=== PATIENT | female | born 1935 | race Caucasian/White ===

== ENCOUNTER 2024-09-29 09:20 | Inpatient (IN) | payer OTHER, SELFPAY ==
[2024-09-28] VITALS (13 sets, daily range): BP systolic 120–153; BP diastolic 51–85; BMI 28.6; BMI 28.5
--- NOTE | 2024-09-28 10:42 | ED.GENMED ---
History of Present Illness
General
Chief Complaint: Breathing Problem
Source: patient and ambulance crew
Exam Limitations: none
Time Seen by Provider: 09/28/24 10:29
Nursing documentation reviewed up to this point in time: agreed with
History of Present Illness
History of Present Illness:
89-year-old female presents Emergency Department complaining of dizziness. EMS noted she was short of breath. They gave her a DuoNeb en route.
Past History
Past History
ED Past Medical History: Arrthythmia (A. fib), COPD, HTN and Hypercholesterolemia
ED Past Surgical History: Appendectomy
Social History
Tobacco: Former smoker
Alcohol: Former
Drug: None
Personal:
Living: alone
Review of Systems
Review of Systems
Allergies reviewed?: Yes
All Other Systems: Not applicable
Constitutional: Reports no symptoms
EENT: Reports no symptoms
Respiratory: Reports cough and trouble breathing
Cardiac: Reports no symptoms
ABD/GI: Reports no symptoms
: Reports no symptoms
Musculoskeletal: Reports no symptoms
Skin: Reports no symptoms
Neurological: Reports dizzy
Endocrine: Reports no symptoms
Hematologic/Lymphatic: Reports no symptoms
Psychiatric: Reports no symptoms
Phy Exam
Physical Exam
Physical Exam:
Physical Exam
General: Moderate respiratory distress
Neck: supple. no meningeal signs. normal posterior pharynx
Heart: s1/s2 regular rate and rhythm, no murmur. equal radial
pulses.
HEENT: Pupils equal round reactive to light, EOMI
Lungs: Moderate respiratory distress. Wheezing bilaterally
Abdomen: normal bowel sounds. not tender. no CVAT
Neuro: alert and oriented. no focal neurological deficits cranial nerves II through XII intact
Skin: no rash
Psychiatric: well kept. interactive and cooperative
Extremities: no edema. no calf tenderness. negative homans. good distal pulses
Scores
Heart Failure Risk
Heart Failure Risk Score: Not Applicable
Course
Orders/Labs/Results
Orders:
Orders
09/28/24 10:39
CT Head W/o Iv Contrast Urgent
Comment:
Reason For Exam: dizziness
Cardiac Monitoring- Treatment ONCE
IV Insert/Care/Rem.- Treatment PRN
O2 Therapy [RESP] Stat
Titrate/Wean O2 to maintain O2 sat greater than (%): 2
Pulse Ox/cont/shift [RESP] Stat
Quantity: 1
09/28/24 10:40
Electrocardiogram (*1) Stat
Reason for Study: Other
Other Reason for Exam: pneumonia
EKG- Treatment ONCE
09/28/24 10:44
Complete Blood Count/With Diff Urgent
Comprehensive Metabolic Panel Urgent
Lactic Acid Q4H
Comment: CANCEL 2nd LACTIC ACID IF 1st LACTIC ACID IS LESS THAN 2
NT-proBNP Urgent
Troponin I Urgent
09/28/24 10:49
Ipratropium/Albuterol Sulfate [Duoneb] 3 ml INH R NOW STA
09/28/24 11:08
CR Chest Portable - 1 View Urgent
Reason For Exam: SOB
09/28/24 13:02
Azithromycin 500 mg/250 ml [Zithromax Infusion] 500 mg in 250 ml IV NOW
CefTRIAXone [Rocephin] 1,000 mg IV NOW STA
Dexamethasone Sod Phosphate [Decadron] 10 mg IV NOW STA
09/28/24 13:15
Blood Culture Q30M
CARROLL Source: Blood/Venous
Specimen Description:
09/28/24 13:21
Admit/Transfer Patient As Directed
Co-Sign Provider:
Level of Care: Observation services
Assign to:: Telemetry
Physician / Group: dewin
Diagnosis: pneumonia, copd exacerbation
Reason for Telemetry: Arrhythmia
Date to Stop Telemetry: 10/01/24
Time to Stop Telemetry: 11:00
09/28/24 13:22
Code Status As Directed
Resuscitation Status: Full Code
PRN Pain Medication Management As Directed
May give lesser potent ordered pain med per pt: Yes
preference::
Protocol:: Medication orders for pain may be administered in a
manner that supports deferring to patient preference
when the pt is:
- Requesting an ordered lesser potent pain medication.
Least to most potent pain medications are defined
as: acetaminophen < NSAID < tramadol < opioids
(morphine, oxycodone, hydromorphone).
- Requesting a lesser dose of the same medication IF
ORDERED.
- Requesting a less intrusive route of administration
if both routes are prescribed by the provider (PO <
IV).
09/28/24 13:45
Blood Culture Q30M
C[facility] Source: Blood/Venous
Specimen Description:
09/28/24 14:45
Lactic Acid Q4H
Comment: CANCEL 2nd LACTIC ACID IF 1st LACTIC ACID IS LESS THAN 2
10/01/24 11:00
DC Protocol for Telemetry ONCE
Abnormal Lab Results
09/28/24
10:44
MCHC 31.7 L g/dL
(33.0-37.0)
Lymphocytes % 18.5 L %
(20.5-51.1)
Potassium 3.0 L mmol/L
(3.5-5.1)
Carbon Dioxide 32 H mmol/L
(22-30)
Creatinine 0.5 L mg/dL
(0.6-1.0)
Glucose 163 H mg/dl
(70-99)
AST 39 H U/L
(14-36)
09/28/24 10:44
09/28/24 10:44
Vital Signs
Initial and Last Documented VS:
Initial Vital Signs
Pulse Ox
86
09/28/24 10:27
Last Documented Vital Signs
Temp Pulse Resp BP Pulse Ox
98.2 F 77 18 135/61 93
09/28/24 12:00 09/28/24 13:30 09/28/24 13:30 09/28/24 13:30 09/28/24 13:30
MDM/Problems Addressed
Differential Diagnosis Includes:
Pneumonia, COPD, hypokalemia
MDM/Problems Addressed:
89-year-old female with hypokalemia, pneumonia, COPD exacerbation, dizziness
Chronic conditions affecting care: COPD
Acute Exacerbation and/or Progression of Chronic Illness: COPD
*Radiology
Radiology exam reviewed: radiology read reviewed (Chest x-ray shows right upper lobe pneumonia, CT head no acute findings)
*Pulse Oximetry
Patient hypoxic: yes
*EKG
Interpreted by ED Provider?: Yes
EKG Intrepretation Date: 09/28/24
EKG Intrepretation Time: 11:23
Interpretation: normal
Comparison EKG: no changes
Heart Rate: 75
Rate: normal
Rhythm: sinus
[place]: normal axis
Interval: normal interval
QRS Pattern: normal QRS
Ischemia: no ischemia
*Employee Communications Specialist Interpretation
Rate: normal
Interpretation: normal
Heart Rate: 77
Rhythm: sinus
*Critical Care Note
Total Time (30-74mins, 75-104mins- exclusive of procedures): Not Applicable
Data Reviewed
Review of Other/Old Records Reveals: Labs (Prior potassium 4.0 March 07, 2022)
Source: records
Patient Management
Social determinants of health affecting care: Living situation and Strong social support
Discussion with other providers: Hospitalist
Escalation/DeEscalation of care consider admission/obs:
Admission indicated
ED Attending Note
-
Portions of this chart may have been created with voice recognition software.� Occasional wrong word or��sound alike� substitutions may have occurred due to the inherent limitations of voice recognition software.
Discharge Plan
Departure
Patient Disposition: Admit
Date of Disposition: 09/28/24
Time of Disposition: 13:05
Admit to: Telemetry
Presentation/result/management discussed w/ accepting MD/DO: Hospitalist
Patient with high blood pressure during this ER visit?: Yes
Condition: Fair
Discharge Problem:
Pneumonia, COPD with exacerbation, Dizziness
Prescriptions:
No Action
rosuvastatin 5 MG tablet
5 mg PO QPM
montelukast 10 MG tablet
10 mg PO QPMPRN PRN (Reason: ALLERGIES)
azelastine 1 SPRAY aerosol,spray
1 spray intranasal BIDPRN PRN (Reason: ALLERGIES)
PreserVision AREDS 1 CAP capsule
1 cap PO BID
lisinopril 5 MG tablet
5 mg PO DAILY
diltiazem HCl 180 MG capsule,extended release 24hr
180 mg PO QPM
Eliquis 5 MG tablet
5 mg PO BID
mirtazapine 15 mg Tablet
15 mg PO HS Qty: 0
acetaminophen [Tylenol] 325 mg Tablet
650 mg PO DAILYPRN PRN (Reason: mild pain)
Trelegy Ellipta 100-62.5-25 mcg Blister With Device
1 inh INHALATION R DAILY
Referrals:
UNKNOWN - PT DOES,NOT KNOW [Family Provider] -
Interventions
Interventions:
*Risk Screen - Suicide Last Done: 09/28/24 10:29
*General Assessment Last Done: 09/28/24 10:29
*Neglect/Abuse Screening Last Done: 09/28/24 10:29
ED- Fall Risk Assessment Last Done: 09/28/24 10:29
ED- Cardiac Assessment Last Done: 09/28/24 10:38
ED- Pulmonary Assessment Last Done: 09/28/24 10:38
Discharge Date and Time
Print Language: DJIBOUTIAN
[2024-09-28 10:57] LABS: % Basophils 0.7 % (0-2); % Eosinophils 3.4 % (0-6); % Immature Granulocytes 0.3 % (0-0.5); % Lymphocytes 18.5 % (20.5-51.1); % Monocytes 4.8 % (1.7-9.3); % Neutrophils 72.3 % (42.2-75.2); Absolute Basophils 0.1 10^3/uL (0-0.2); Absolute Eosinophils 0.2 10^3/uL (0-0.7); Absolute Lymphocytes 1.3 10^3/uL (1.2-3.4); Absolute Monocytes 0.3 10^3/uL (0.1-0.6); Hematocrit 38.8 % (37.0-47.0); Hemoglobin 12.3 g/dL (12.0-16.0); Mean Corp Hgb Conc. 31.7 g/dL (33.0-37.0); Mean Corpuscular Hgb 28.4 pg (27.0-31.0); Mean Corpuscular Volume 89.6 fL (81.0-99.0); Mean Platelet Volume 8.4 fL (7.4-10.4); Nucleated Red Blood Cells % 0 %; Platelet Count 318 10^3/uL (130-400); Red Blood Cell Count 4.33 10^6/uL (4.20-5.40); Red Cell Dist. Width 14.4 % (11.5-14.5); White Blood Cell Count 6.9 10^3/uL (4.8-10.8)
[2024-09-28 11:04] LABS: Lactic Acid 1.2 mmol/L (0.7-2.0)
[2024-09-28] MEDS: DUONEB 3 ML INH ×2 (11:06→15:20)
[2024-09-28 11:10] LABS: ALT (SGPT) 26 U/L (0-35); AST (SGOT) 39 U/L (14-36); Albumin 3.8 g/dl (3.5-5.0); Alkaline Phosphatase 118 U/L (38-126); Blood Urea Nitrogen 13 mg/dl (7-17); Calcium 8.9 mg/dl (8.4-10.2); Carbon Dioxide 32 mmol/L (22-30); Chloride 104 mmol/L (98-107); Estimated Creatinine Clearance 62 ml/min; Glucose 163 mg/dl (70-99); Sodium 142 mmol/L (135-145); Total Bilirubin 0.5 mg/dl (0.2-1.3); Total Protein 6.7 g/dl (6.3-8.2); eGFR > 60.00
--- NOTE | 2024-09-28 12:17 | EDRN ---
Pt ambulated with walker to restroom, became SOB and returned to stretcher. Pulse ox 92% on 2L NC O2. Pt unable to get specimen as toilet tissue was placed in hat.
[2024-09-28 12:27] LABS: NT-proBNP 688 pg/ml; Troponin I < 0.012 ng/ml
[2024-09-28] MEDS: ZITHROMAX INFUSION 250 IV (13:05)
[2024-09-28] MEDS: ROCEPHIN 1000 MG IV (13:05)
[2024-09-28] MEDS: DECADRON 10 MG IV (13:15)
--- NOTE | 2024-09-28 13:26 | HPS.HSE ---
Family Physician
-
Family Physician: NOT KNOW UNKNOWN - PT DOES
Chief Complaint
-
dizziness
History of Present Illness
89-year-old female past medical history of COPD, atrial fibrillation, hypertension, hypercholesteremia presenting with dizziness. Patient felt dizzy last night and was having chills. This morning she woke up was having difficulty walking to the
car. She was having a little difficulty speaking and also had chills and what seemed like a panic attack as per daughter. She was noted to be short of breath a little bit last week as well as yesterday and today. No significant cough. No sore
throat or fevers or chills. No vomiting or diarrhea. She did have palpitations but no chest pain.
She is a former smoker. She rarely drinks alcohol.
Medical History
Past Medical History
Past Medical History: Reports Other (COPD, atrial fibrillation, hypertension, hypercholesteremia)
Past Surgical History: Reports None
Social History
Tobacco: Former Smoker
Alcohol: Occasional
Drug: None
Family History
Family History: Not pertinent
Allergies / Home Medications
Allergies reflects when Allergies were last updated in [employer].
Home Medications with original date entered in [employer]
Allergy/Medication List:
Allergies
Allergy/AdvReac Type Severity Reaction Status Date / Time
animal dander Allergy Unknown Verified 09/28/24 10:28
morphine Allergy nausea and Verified 09/28/24 10:28
vomiting
peanut Allergy Unknown Verified 09/28/24 10:28
Home Medications
azelastine 137 mcg (0.1 %) nasal spray 1 spray intranasal BIDPRN PRN ALLERGIES 02/02/22
fluticasone furoate 100 mcg-vilanterol 25 mcg/dose inhalation powder (Breo Ellipta) 1 puff IH R DAILY Lung/breathing issues 02/02/22
fluticasone propionate 50 mcg/actuation nasal spray,suspension 2 spray intranasal DAILY Allergies 02/02/22
montelukast 10 mg tablet 10 mg PO QPMPRN PRN ALLERGIES 02/02/22
rosuvastatin 5 mg tablet 5 mg PO QPM High cholesterol 02/02/22
tiotropium bromide 18 mcg capsule with inhalation device (Spiriva with HandiHaler) 1 puff IH R DAILY Lung/breathing issues 02/02/22
vitamins A,C,F-sfoe-jokpap 4,296 mcg-226 mg-90 mg capsule (PreserVision AREDS) 1 cap PO BID Supplement 02/02/22
apixaban 5 mg tablet (Eliquis) 5 mg PO BID Blood clot prevention/tx 02/27/22
diltiazem HCl 180 mg capsule,extended release 24 hr 180 mg PO DAILY Blood pressure 02/27/22
guaifenesin 600 mg tablet, extended release 12 hr (Mucus Relief ER) 600 mg PO Q12 Congestion 02/27/22
lisinopril 5 mg tablet 5 mg PO DAILY Blood pressure 02/27/22
Remeron mg PO HS 03/04/22
benzonatate 100 mg capsule 200 mg (2 x 100 mg) PO TID #20 caps 03/07/22
prednisone 10 mg tablet 10 mg PO .TAPER #30 tabs 03/07/22
cephalexin 500 mg capsule 500 mg PO Q6H 7 days #28 caps 01/26/23
Review of Systems
-
History Source: Patient
A 12 point ROS was completed and negative except as noted: Yes
Constitutional: Reports No Symptoms
EENT: Reports No Symptoms
Respiratory: Reports See HPI
Cardiac: Reports No Symptoms
Abdomen/GI: Reports No Symptoms
: Reports No Symptoms
Musculoskeletal: Reports No Symptoms
Skin: Reports No Symptoms
Neurological: Reports No Symptoms
Endocrine: Reports No Symptoms
Hematologic/Lymphatic: Reports No Symptoms
Psych: Reports No Symptoms
Physical Exam
Vital Signs
Vital Signs
Temp Pulse Resp BP Pulse Ox
98.2 F 76 16 133/53 96
09/28/24 12:00 09/28/24 13:00 09/28/24 13:00 09/28/24 13:00 09/28/24 13:00
Physical Exam
General: Well Developed, Well Nourished and No Apparent Distress
HEENT: NormoCephalic, Moist mucous membranes and Atraumatic
Respiratory: Clear
Cardiac: S1/S2 and Regular Rhythm; No Murmur or Rub
GI: Soft, Non Tender, Non Distended and Normal Bowel Sounds; No Organomegaly
Rectal: Deferred by Provider
Musculoskeletal: No Clubbing, No Cyanosis and No Edema
Skin: No Rash
Neuro: Nonfocal/grossly intact
Laboratory Results
-
09/28/24 10:44
09/28/24 10:44
Laboratory Results
Lactic Acid 1.2 mmol/L (0.7-2.0) 09/28/24 10:44
Total Bilirubin 0.5 mg/dl (0.2-1.3) 09/28/24 10:44
AST 39 U/L (14-36) H 09/28/24 10:44
ALT 26 U/L (0-35) 09/28/24 10:44
Alkaline Phosphatase 118 U/L (38-126) 09/28/24 10:44
Troponin I < 0.012 ng/ml 09/28/24 10:44
Data Reviewed
-
Lab Data: Labs Reviewed by me
Old Records: Reviewed
Impression/Plan
-
IMPRESSION:
PLAN:
# Hypoxemic respiratory insufficiency secondary to right upper lobe pneumonia/COPD exacerbation
-Dizziness/chills likely due to pneumonia
-Patient on 2 L oxygen right now
-Lungs sound clear at this time, doubt she will need a long course of steroids
-Ceftriaxone/doxycycline
-DuoNebs every 6 hours
-Dexamethasone 4 mg every 12
# Hypokalemia
-Replete potassium
Paroxysmal atrial fibrillation
-Continue Eliquis
-Continue diltiazem
Essential hypertension
Hypercholesterolemia
-Continue statin
Full code
DVT prophylaxis�Eliquis
Regular diet
[2024-09-28] MEDS: VIBRAMYCIN 260 MG IV (16:20)
[2024-09-28 16:49] LABS: COVID-19 Antigen Negative (Negative)
[2024-09-28] MEDS: CRESTOR 5 MG PO (17:43)
[2024-09-28] MEDS: CARDIZEM CD 180 MG PO (17:43)
[2024-09-28] MEDS: SYMBICORT 80/4.5 MCG INHALER 2 PUFF INH (19:07)
[2024-09-28] MEDS: VENTOLIN NEBULES 2.5 MG INH (19:07)
[2024-09-28] MEDS: OCUVITE SOFTGEL 1 CAP PO (19:33)
[2024-09-28] MEDS: ELIQUIS 5 MG PO (19:34)
[2024-09-28] MEDS: REMERON 15 MG PO (21:17)
[2024-09-29] VITALS (7 sets, daily range): BP systolic 149–170; BP diastolic 59–107
[2024-09-29 02:06] LABS: Glucose - Point of Care 209 mg/dl (70-99)
[2024-09-29] MEDS: DECADRON 4 MG IV ×2 (02:14→14:02)
[2024-09-29] MEDS: VIBRAMYCIN 260 MG IV (02:15)
--- NOTE | 2024-09-29 05:24 | PTCARENOTE ---
Pt requested to go to bathroom to urinate at approximately 0200. Pt stood up at side of the bed and began having jerky movements and c/o dizziness. VS BP 169/81, HR 90, 96% 2LO2 (O2 is new for her), RR 20, T 97.4. Pt blood sugar result of 209. Pt on
tele showing NSR. Pt does have baseline hand tremors and earlier in the shift she was able to walk to and from the bathroom using her walker with no difficulty. DIE CUTTER APPRENTICE notified, new orders placed for VBG to be drawn in AM d/t hx of YUSRA and possible
being hypercarbic. Pt continues to have jerky movements when getting OOB and refused bed motta.
[2024-09-29 07:04] LABS: Venous Blood Gas B.E. 3.1 mmol/L (-4 to +4); Venous Blood Gas HCO3 28.5 mmol/L (22-27); Venous Blood Gas O2 Sat % 98.7 %; Venous Blood Gas pCO2 46 mmHg (35-48); Venous Blood Gas pO2 99 mmHg (30-50)
[2024-09-29] MEDS: SPIRIVA RESPIMAT 2.5 MCG 2 PUFF INH (07:11)
[2024-09-29] MEDS: SYMBICORT 80/4.5 MCG INHALER 2 PUFF INH ×2 (07:11→19:13)
[2024-09-29] MEDS: VENTOLIN NEBULES 2.5 MG INH ×4 (07:12→19:13)
[2024-09-29] MEDS: OCUVITE SOFTGEL 1 CAP PO ×2 (08:26→19:30)
[2024-09-29] MEDS: ELIQUIS 5 MG PO ×2 (08:26→19:30)
[2024-09-29] MEDS: ZESTRIL 5 MG PO (08:26)
[2024-09-29 09:28] LABS: Blood Urea Nitrogen 13 mg/dl (7-17); Calcium 8.7 mg/dl (8.4-10.2); Carbon Dioxide 27 mmol/L (22-30); Chloride 104 mmol/L (98-107); Estimated Creatinine Clearance 62 ml/min; Glucose 158 mg/dl (70-99); Potassium 3.6 mmol/L (3.5-5.1); Sodium 142 mmol/L (135-145); eGFR > 60.00
[2024-09-29 09:40] LABS: % Immature Granulocytes 0.8 % (0-0.5); % Lymphocytes 9.3 % (20.5-51.1); % Monocytes 0.7 % (1.7-9.3); % Neutrophils 89.2 % (42.2-75.2); Absolute Immature Granulocytes 0.1 10^3/uL (0-0.05); Absolute Lymphocytes 0.6 10^3/uL (1.2-3.4); Absolute Neutrophils 5.5 10^3/uL (1.4-6.5); Hematocrit 37.1 % (37.0-47.0); Mean Corp Hgb Conc. 32.3 g/dL (33.0-37.0); Mean Corpuscular Hgb 28.4 pg (27.0-31.0); Mean Corpuscular Volume 87.7 fL (81.0-99.0); Mean Platelet Volume 8.8 fL (7.4-10.4); Nucleated Red Blood Cells % 0 %; Platelet Count 327 10^3/uL (130-400); Red Blood Cell Count 4.23 10^6/uL (4.20-5.40); Red Cell Dist. Width 14.3 % (11.5-14.5); White Blood Cell Count 6.1 10^3/uL (4.8-10.8)
--- NOTE | 2024-09-29 11:24 | CM ---
Pt seen bedside. Initial assessment completed.
Pt reports that she lives alone at [facility]
Pt states she uses walker primarily to ambulate but will also use WC when needed. Pt does not use home O2, is currently on 2L O2 in hospital.
Pt does not recall if she's ever had skilled rehab before but did report she engaged in OP therapy at around the time of the COVID pandemic.
Pt denies VN/PT hx
Address, point of contact and insurance verified
PCP: Pt does not recall name but confirmed PCP is at [facility]
Pharmacy: [facility]
Plan: Return to [facility]
CM will cont to follow for d/c planning
[2024-09-29] MEDS: STERILE WATER FOR INJECTION 10 ML IV (14:03)
[2024-09-29] MEDS: ROCEPHIN 1000 MG IV (14:03)
--- NOTE | 2024-09-29 14:50 | W.PN.HOSP.TC ---
Today's Communication/Plan
-
change all meds to oral
Assessment / Plan
Assessment / Plan
pt is an 89 year old female
Acute Hypoxemic respiratory insufficiency secondary to right upper lobe pneumonia/COPD exacerbation--94-95% on room air--no wheezing--change to oral doxy/keflex--oral prednisone
Hypokalemia--Replete potassium
Paroxysmal atrial fibrillation-Continue Eliquis-Continue diltiazem
Essential hypertension--cont diltiazem, lisinopril
Hypercholesterolemia--Continue statin
code status --Full code
DVT prophylaxis�Eliquis
Anticipated Discharge: Within 24 hours
Subjective/Interval History
-
Date of Service: September 29, 2024
pt doing OK
Objective Data
-
Labs:
Laboratory Results
09/29/24
06:44
WBC 6.1
Hgb 12.0
Hct 37.1
Plt Count 327
Sodium 142
Potassium 3.6
Chloride 104
Carbon Dioxide 27
BUN 13
Creatinine 0.5 L
Glucose 158 H
Calcium 8.7
Vital Signs:
max temp for 24 hours
09/29/24
11:30
Temp 98.5 F
Vital Signs
Temp Pulse Resp BP Pulse Ox
98.5 F 93 20 166/94 95
09/29/24 11:30 09/29/24 11:30 09/29/24 11:30 09/29/24 11:30 09/29/24 14:45
I&O
09/28/24 09/29/24 09/30/24
06:59 06:59 06:59
Intake Total 720 / 720
Balance 720 / 720
Review of Systems
-
All other systems: Reviewed and negative
Physical Exam
-
General: Well Developed, Well Nourished and No Apparent Distress
HEENT: Normocephalic and Atraumatic; Negative Oxygen
Respiratory: Clear to Auscultation and Decreased Breath Sounds; Negative Wheezes or Rhonchi
Cardiac: Regular Rhythm, S1/S2 and Murmur
GI: Soft, Nontender, Nondistended and Normal Bowel Sounds
Musculoskeletal: No Clubbing, No Cyanosis and No Edema
Neuro: Awake and Alert
Psych: Calm
[2024-09-29] MEDS: KEFLEX 500 MG PO ×2 (17:04→21:07)
[2024-09-29] MEDS: CRESTOR 5 MG PO (17:52)
[2024-09-29] MEDS: CARDIZEM CD 180 MG PO (17:52)
[2024-09-29] MEDS: VIBRAMYCIN 100 MG PO (19:29)
[2024-09-29] MEDS: REMERON 15 MG PO (21:07)
[2024-09-30] VITALS (8 sets, daily range): BP systolic 116–180; BP diastolic 57–98; PULSE 96–103; O2SAT 96
[2024-09-30] MEDS: SPIRIVA RESPIMAT 2.5 MCG 2 PUFF INH (07:29)
[2024-09-30] MEDS: SYMBICORT 80/4.5 MCG INHALER 2 PUFF INH ×2 (07:29→19:59)
[2024-09-30] MEDS: VENTOLIN NEBULES 2.5 MG INH ×4 (07:29→20:00)
[2024-09-30 08:16] LABS: Hematocrit 36.9 % (37.0-47.0); Hemoglobin 12.3 g/dL (12.0-16.0); Mean Corp Hgb Conc. 33.3 g/dL (33.0-37.0); Mean Platelet Volume 8.7 fL (7.4-10.4); Platelet Count 359 10^3/uL (130-400); Red Blood Cell Count 4.24 10^6/uL (4.20-5.40); Red Cell Dist. Width 14.8 % (11.5-14.5); White Blood Cell Count 16.1 10^3/uL (4.8-10.8)
[2024-09-30 08:26] LABS: Blood Urea Nitrogen 24 mg/dl (7-17); Calcium 9.4 mg/dl (8.4-10.2); Carbon Dioxide 28 mmol/L (22-30); Chloride 103 mmol/L (98-107); Estimated Creatinine Clearance 53 ml/min; Glucose 160 mg/dl (70-99); Magnesium 1.9 mg/dl (1.6-2.3); Potassium 4.1 mmol/L (3.5-5.1); Sodium 140 mmol/L (135-145); eGFR > 60.00
[2024-09-30] MEDS: VIBRAMYCIN 100 MG PO ×2 (08:49→19:30)
[2024-09-30] MEDS: ELIQUIS 5 MG PO ×2 (08:50→19:31)
[2024-09-30] MEDS: DELTASONE 40 MG PO (08:50)
[2024-09-30] MEDS: ZESTRIL 5 MG PO (08:50)
[2024-09-30] MEDS: KEFLEX 500 MG PO ×3 (08:51→21:38)
[2024-09-30] MEDS: OCUVITE SOFTGEL 1 CAP PO ×2 (08:51→19:31)
[2024-09-30] MEDS: STERILE WATER FOR INJECTION IV (12:03)
--- NOTE | 2024-09-30 14:03 | W.PN.HOSP.TC ---
Today's Communication/Plan
-
stop prednisone
cont keflex/doxy
anticipate d/c tomorrow
Assessment / Plan
Assessment / Plan
pt is an 89 year old female
Acute Hypoxemic respiratory insufficiency secondary to right upper lobe pneumonia/COPD exacerbation--94-95% on room air--no wheezing, stopped prednisone--change to oral doxy/keflex--anticipate d/c tomorrow
confusion/TME--likely from steroids--will stop and re-eval
Hypokalemia--Replete potassium
Paroxysmal atrial fibrillation-Continue Eliquis-Continue diltiazem
Essential hypertension--cont diltiazem, lisinopril
Hypercholesterolemia--Continue statin
code status --Full code
DVT prophylaxis�Eliquis
Anticipated Discharge: Within 24 hours
Subjective/Interval History
-
Date of Service: September 30, 2024
pt eels good but with labile mood--sobbing--said her daughter told her she was nasty to people
Objective Data
-
Labs:
Laboratory Results
09/30/24
07:11
WBC 16.1 H
Hgb 12.3
Hct 36.9 L
Plt Count 359
Sodium 140
Potassium 4.1
Chloride 103
Carbon Dioxide 28
BUN 24 H
Creatinine 0.7
Glucose 160 H
Calcium 9.4
Vital Signs:
max temp for 24 hours
09/30/24
03:00
Temp 97.9 F
Vital Signs
Temp Pulse Resp BP Pulse Ox
97.3 F 80 16 124/57 95
09/30/24 11:40 09/30/24 11:43 09/30/24 11:43 09/30/24 11:40 09/30/24 11:43
I&O
09/29/24 09/30/24 10/01/24
06:59 06:59 06:59
Intake Total 720 / 720 1800 / 1800
Balance 720 / 720 1800 / 1800
Review of Systems
-
All other systems: Reviewed and negative
Psych: Reports Sad
Physical Exam
-
General: Well Developed, Well Nourished and No Apparent Distress
HEENT: Normocephalic and Atraumatic
Respiratory: Clear to Auscultation; Negative Wheezes or Rhonchi
Cardiac: Regular Rhythm and S1/S2; Negative Murmur
GI: Soft, Nontender, Nondistended and Normal Bowel Sounds
Musculoskeletal: No Clubbing, No Cyanosis and No Edema
Skin: Warm
Neuro: Awake
Psych: Calm
--- NOTE | 2024-09-30 14:41 | CM ---
Patient seen at bedside.
PT rec HH
Spoke with hospitalist - case management consult completed for HH
Options reviewed with Daughter Roxie - [facility] referral placed in [facility]
Spoke with Dariusz at [facility] d/c tentative tomorrow.
IMM explained & signed. In chart
PLAN: home with VN
[2024-09-30] MEDS: CARDIZEM CD 180 MG PO (17:19)
[2024-09-30] MEDS: CRESTOR 5 MG PO (17:20)
[2024-09-30] MEDS: REMERON 15 MG PO (21:38)
[2024-10-01 03:00] VITALS: BP 165/80
[2024-10-01 07:00] VITALS: BP 159/72
[2024-10-01] MEDS: VENTOLIN NEBULES 2.5 MG INH (08:22)
[2024-10-01] MEDS: SYMBICORT 80/4.5 MCG INHALER 2 PUFF INH (08:22)
[2024-10-01] MEDS: SPIRIVA RESPIMAT 2.5 MCG 2 PUFF INH (08:22)
[2024-10-01] MEDS: ZESTRIL 5 MG PO (09:11)
[2024-10-01] MEDS: KEFLEX 500 MG PO (09:11)
[2024-10-01] MEDS: ELIQUIS 5 MG PO (09:12)
[2024-10-01] MEDS: VIBRAMYCIN 100 MG PO (09:12)
[2024-10-01] MEDS: OCUVITE SOFTGEL 1 CAP PO (09:12)
[2024-10-01 09:24] LABS: Hemoglobin 12.7 g/dL (12.0-16.0); Mean Corp Hgb Conc. 31.8 g/dL (33.0-37.0); Mean Corpuscular Hgb 27.9 pg (27.0-31.0); Mean Corpuscular Volume 87.7 fL (81.0-99.0); Mean Platelet Volume 8.4 fL (7.4-10.4); Platelet Count 375 10^3/uL (130-400); Red Blood Cell Count 4.56 10^6/uL (4.20-5.40); White Blood Cell Count 14.4 10^3/uL (4.8-10.8)
--- NOTE | 2024-10-01 09:36 | CM ---
Addendum entered by Elvia Waters 10/01/24 09:52:
spoke with daughter & she will transport home when discharged
Original Note:
IMM signed yesterday - in chart
[facility] accepted patient in [facility]
PLAN: Home with [facility]
Fax #:[phone]
--- NOTE | 2024-10-01 10:06 | W.PN.HOSP.TC ---
Today's Communication/Plan
-
d/c
Assessment / Plan
Assessment / Plan
pt is an 89 year old female
Acute Hypoxemic respiratory insufficiency secondary to right upper lobe pneumonia/COPD exacerbation--94-95% on room air--no wheezing, stopped prednisone--change to oral doxy/keflex--anticipate d/c tomorrow
confusion/TME--likely from steroids--will stop and re-eval--improved
Hypokalemia--Replete potassium
Paroxysmal atrial fibrillation-Continue Eliquis-Continue diltiazem
Essential hypertension--cont diltiazem, lisinopril
Hypercholesterolemia--Continue statin
code status --Full code
DVT prophylaxis�Eliquis
ok for d/c
Anticipated Discharge: Today
Subjective/Interval History
-
Date of Service: October 01, 2024
pt ready for d/c
Objective Data
-
Labs:
Laboratory Results
10/01/24
08:53
WBC 14.4 H
Hgb 12.7
Hct 40.0
Plt Count 375
Vital Signs:
max temp for 24 hours
09/30/24
23:00
Temp 98.5 F
Vital Signs
Temp Pulse Resp BP Pulse Ox
97.6 F 67 16 159/72 92
10/01/24 07:00 10/01/24 08:24 10/01/24 08:24 10/01/24 07:00 10/01/24 08:24
I&O
09/30/24 10/01/24 10/02/24
06:59 06:59 06:59
Intake Total 1800 / 1800 1000 / 1000 180 / 180
Balance 1800 / 1800 1000 / 1000 180 / 180
Review of Systems
-
All other systems: Reviewed and negative
Physical Exam
-
General: Well Developed, Well Nourished and No Apparent Distress
HEENT: Normocephalic and Atraumatic
Respiratory: Clear to Auscultation; Negative Wheezes or Rhonchi
Cardiac: Regular Rhythm and S1/S2; Negative Murmur
GI: Soft, Nontender, Nondistended and Normal Bowel Sounds
Musculoskeletal: No Clubbing, No Cyanosis and No Edema
Skin: Warm
Neuro: Awake
Psych: Calm
[2024-10-01] MEDS: FLUAD (65 yr+) 2024-2025 FORMULA 0.5 ML IM (10:36)
[2024-10-01] MEDS: VENTOLIN NEBULES INH (12:25)
[2024-10-01 13:27] VITALS: BP 148/80
--- NOTE | 2024-10-01 14:06 | W.DCSUMMARY ---
Discharge Summary
Discharge Data
Date of Admission: 09/29/24
Date of Discharge: 10/01/24
-
Pending Results: No
Hospital Course
Primary care physician : Not Listed
Principal Discharge diagnosis : Acute hypoxemic respiratory insufficiency secondary to right upper lobe pneumonia with chronic obstructive pulmonary disease exacerbation, toxic metabolic encephalopathy from steroids
Chronic Discharge diagnosis : Paroxysmal atrial fibrillation, essential hypertension, hyperlipidemia
Hospital Course : Patient was an 89-year-old female who presented with chills and feeling dizzy on the night prior to admission. On the morning of admission she woke up and had difficulty walking to the car. She also had difficulty speaking and
what seemed like a panic attack as per her daughter. She was noted to be mildly short of breath the week prior to admission without any significant cough. She denied sore throat, fever, or chills. Patient was admitted.
Problem #1: Acute hypoxemic respiratory insufficiency secondary to right upper lobe pneumonia with chronic obstructive pulmonary disease exacerbation. Chest x-ray showed right upper lobe pneumonia. Patient was initially started on IV steroids with
conversion to oral prednisone for an exacerbation of her chronic obstructive pulmonary disease due to the pneumonia. She was able to be weaned off oxygen and was 94 to 95% on room air. Wheezing was not noted and steroids were stopped. She was
changed to oral doxycycline and Keflex to complete her course. White count was normal on admission, it did increase likely with the addition of the steroids.
Problem #2: Toxic metabolic encephalopathy from steroids. CAT scan of her head was normal on admission without any significant issues. Patient was started on IV steroids and then converted to oral prednisone. Unfortunately, patient developed
confusion and encephalopathy. Steroids were stopped and the patient cleared.
Problem #3: All other medical issues. These include Paroxysmal atrial fibrillation, essential hypertension, hyperlipidemia. These medical issues were stable during her hospitalization. Medications were continued as able.
Patient is stable for discharge home at this time. If any questions regarding this dictation or her hospital stay, please and hesitate to call. Our office number is [phone].
Important imaging findings :
CHEST X-RAY IMPRESSION: Findings as above at least somewhat suspicious for right upper lobe pneumonia. As warranted, follow-up examination with PA and lateral projections may be helpful in further evaluation.
HEAD CT SCAN IMPRESSION: No significant change. No acute intracranial abnormality identified.
Discharge Plan
-
Patient Disposition: Home with Home Care
Discharge Diagnosis/Procedures: Acute hypoxemic respiratory insufficiency due to right upper lobe pneumonia with chronic obstructive pulmonary disease exacerbation, toxic metabolic encephalopathy from steroids, hypokalemia, paroxysmal atrial
fibrillation, essential hypertension, hyperlipidemia
Condition: Good
Diet: As tolerated and Regular
Activity: As tolerated
Driving Restrictions: As prior to admission
Bathing Restrictions: None
Other Services: VN
Referrals:
UNKNOWN - PT DOES,NOT KNOW [Family Provider] - in less than 1 week
Prescriptions:
New
doxycycline hyclate 100 mg Capsule
100 mg PO Q12 7 Days Qty: 14 0RF
cephalexin 500 mg Capsule
500 mg PO TID 7 Days Qty: 21 0RF
Continued
rosuvastatin 5 MG tablet
5 mg PO QPM
montelukast 10 MG tablet
10 mg PO QPMPRN PRN (Reason: ALLERGIES)
azelastine 1 SPRAY aerosol,spray
1 spray intranasal BIDPRN PRN (Reason: ALLERGIES)
PreserVision AREDS 1 CAP capsule
1 cap PO BID
lisinopril 5 MG tablet
5 mg PO DAILY
diltiazem HCl 180 MG capsule,extended release 24hr
180 mg PO QPM
Eliquis 5 MG tablet
5 mg PO BID
mirtazapine 15 mg Tablet
15 mg PO HS Qty: 0
acetaminophen [Tylenol] 325 mg Tablet
650 mg PO DAILYPRN PRN (Reason: mild pain)
Trelegy Ellipta 100-62.5-25 mcg Blister With Device
1 inh INHALATION R DAILY
Discharge Orders:
Discharge Patient (As Directed); Ordered 10/01/24
Ordered By: Berta Cerna
Discharge Date and Time
Discharge Date/Time: 10/01/24 12:45
Print Language: SINHALA
== END 2024-10-01 12:45 | disposition home health service (06) | DRG 193 ==
LOC: 4 WEST ACU 09:20
PROVIDERS: Registered Nurse; ADMITTING PHYSICIAN Hospitalist; ATTENDING PHYSICIAN Internal Medicine; EMERGENCY PHYSICIAN Emergency Medicine
DX: J18.9 Pneumonia, unspecified organism (principal); G92.8 Other toxic encephalopathy; J44.1 Chronic obstructive pulmonary disease with (acute) exacerbation; Z87.891 Personal history of nicotine dependence; R09.02 Hypoxemia; R06.89 Other abnormalities of breathing; E87.6 Hypokalemia; I48.0 Paroxysmal atrial fibrillation; I10 Essential (primary) hypertension; E78.00 Pure hypercholesterolemia, unspecified; Z11.52 Encounter for screening for COVID-19
CPT/HCPCS: 70450; 71045; 80048; 80053; 82805; 82962; 83605; 83735; 83880; 84484; 85025; 85027; 87040; 87502; 87811; 90662; 93005; 94640; 96365; 96375; 97116; 97162; 97166; 97535; 99285; G0008

== ENCOUNTER 2024-12-23 07:01 | Inpatient (IN) | payer OTHER, SELFPAY ==
[2024-12-23] VITALS (11 sets, daily range): BP systolic 134–163; BP diastolic 48–93; BMI 29.1
[2024-12-23] MEDS: VENTOLIN NEBULES 7.5 MG INH (03:54)
[2024-12-23] MEDS: DECADRON 10 MG IV (03:54)
[2024-12-23 04:03] LABS: % Basophils 0.1 % (0-2); % Immature Granulocytes 1.2 % (0-0.5); % Monocytes 3.6 % (1.7-9.3); % Neutrophils 88.1 % (42.2-75.2); Absolute Immature Granulocytes 0.1 10^3/uL (0-0.05); Absolute Lymphocytes 0.7 10^3/uL (1.2-3.4); Absolute Monocytes 0.3 10^3/uL (0.1-0.6); Absolute Neutrophils 8.3 10^3/uL (1.4-6.5); Hematocrit 38.1 % (37.0-47.0); Hemoglobin 11.9 g/dL (12.0-16.0); Mean Corp Hgb Conc. 31.2 g/dL (33.0-37.0); Mean Corpuscular Hgb 27.7 pg (27.0-31.0); Mean Corpuscular Volume 88.8 fL (81.0-99.0); Mean Platelet Volume 8.8 fL (7.4-10.4); Nucleated Red Blood Cells % 0 %; Platelet Count 368 10^3/uL (130-400); Red Blood Cell Count 4.29 10^6/uL (4.20-5.40); Red Cell Dist. Width 15.9 % (11.5-14.5); White Blood Cell Count 9.5 10^3/uL (4.8-10.8)
[2024-12-23 04:13] LABS: ALT (SGPT) 44 U/L (0-35); AST (SGOT) 64 U/L (14-36); Albumin 4.5 g/dl (3.5-5.0); Alkaline Phosphatase 130 U/L (38-126); Blood Urea Nitrogen 26 mg/dl (7-17); Calcium 9.2 mg/dl (8.4-10.2); Carbon Dioxide 26 mmol/L (22-30); Chloride 107 mmol/L (98-107); Estimated Creatinine Clearance 60 ml/min; Glucose 186 mg/dl (70-99); Potassium 4.3 mmol/L (3.5-5.1); Sodium 142 mmol/L (135-145); Total Bilirubin 0.6 mg/dl (0.2-1.3); Total Protein 7.4 g/dl (6.3-8.2); eGFR > 60.00
[2024-12-23 04:24] LABS: NT-proBNP 1540 pg/ml; Troponin I < 0.012 ng/ml
--- NOTE | 2024-12-23 04:30 | ED.GENMED ---
History of Present Illness
General
Chief Complaint: Breathing Problem
Source: patient, ambulance crew and previous hospital records (Previous hospitalization September 2024 for acute exacerbation of COPD. Pneumonia.)
Exam Limitations: dementia (Significantly poor memory for recent events.)
Time Seen by Provider: 12/23/24 03:47
Nursing documentation reviewed up to this point in time: agreed with
History of Present Illness
History of Present Illness:
This is an 89-year-old woman with history of COPD, previous hospitalizations for exacerbation of COPD, most recently September of this year also accompanied with right upper lobe pneumonia at that time. She presents via EMS with complaints of abrupt
onset of shortness of breath that began tonight. EMS notes significant shortness of breath initially with pulse ox of 78% on room air. Moderate improvement after 2 nebulizer treatments and supplemental oxygen.
Patient denies chest pain. She does admit to cough, nonproductive, she is unsure as to when symptoms began but knows that she felt much worse tonight.
Does not require oxygen at home.
Patient has been placed on nasal cannula oxygen, 4 L with pulse ox currently 95%.
Past History
Past History
ED Past Medical History: Arrthythmia (A. fib), COPD, HTN and Hypercholesterolemia
ED Past Surgical History: Appendectomy
Social History
Tobacco: Former smoker
Alcohol: Former
Drug: None
Personal:
Living: alone
Family History
Family History: Other (Noncontributory)
Phy Exam
Physical Exam
Physical Exam:
GENERAL: 89-year-old woman appears her stated age, awake and alert, appears in moderate respiratory distress but able to speak in short sentences.
EYE: anicteric
NECK: Supple, nontender, no meningismus, no significant adenopathy. No JVD.
ENT: oral mucosa is minimally dry. Lips are mildly dry. No rhinorrhea.
CARDIAC: Irregularly irregular at a rate of 90-100, no murmur.
LUNGS: Moderate respiratory distress with coarse rhonchi and wheezing bilaterally throughout.
ABDOMEN: Soft, nondistended, without focal tenderness, normoactive BS.
NEUROLOGICAL: Alert and oriented x3, no focal neuro deficits.
SKIN: Warm and dry, normal color, skin intact. No rash.
MUSCULOSKELETAL: Trace pretibial edema bilateral lower extremities, peripheral pulses are full and equal b/l. No palpable tenderness.
PSYCH: Normal and appropriate interaction.
Scores
Heart Failure Risk
Heart Failure Risk Score: Yes
History of Stroke or TIA: No
History of intubation for respiratory distress: No
Heart rate on ED arrival >/= 110: No
SaO2 <90% on arrival on room air: Yes
HR >/=110 during 3min walk test (or too ill to perform test): Yes
ECG has acute ischemic changes: No
Urea >/=12mmol/L (BUN 33.6mg/dL): No
Serum CO2>/=35mmol/L: No
Troponin I or T elevated to MT Level (0.4mg/dL): No
NT-proBNP >/=5,000ng/L (5,000pg/ml): No
HF Risk Score: 3
Admission Status: HIGH RISK 15.9% Consider SNF treatment or admission to hospital
Course
Orders/Labs/Results
Orders:
Orders
12/23/24 03:44
Complete Blood Count/With Diff Urgent
Comprehensive Metabolic Panel Urgent
12/23/24 03:45
Chest X-ray Portable [CR Chest Portable - 1 View] Urgent
Comment:
Reason For Exam: sob
Reason Study Needs to be Portable: Patient Unstable
12/23/24 03:46
NT-proBNP Urgent
Troponin I Urgent
12/23/24 03:49
Albuterol Sulfate [Ventolin Nebules] 7.5 mg INH R NOW STA
Dexamethasone Sod Phosphate [Decadron] 10 mg IV NOW STA
12/23/24 05:28
COVID-19 Antigen Urgent
Source: Nasal Swab
Influenza A+B Rapid Molecular Urgent
CARROLL Source: Nasal Swab
Specimen Description:
12/23/24 05:57
Admit/Transfer Patient As Directed
Co-Sign Provider:
Level of Care: Inpatient admission
Assign to:: Telemetry
Physician / Group: Manfred
Diagnosis: AE-COPD
Reason for Telemetry: Arrhythmia
Date to Stop Telemetry: 12/26/24
Time to Stop Telemetry: 11:00
Reason for Hospitalization: AE-COPD
Expected length of stay greater than two midnights?: Yes
ELOS- Estimated Length of Stay in days: 3
I certify the patient meets the requirements for IP care: Yes
PRN Pain Medication Management As Directed
May give lesser potent ordered pain med per pt: Yes
preference::
Protocol:: Medication orders for pain may be administered in a
manner that supports deferring to patient preference
when the pt is:
- Requesting an ordered lesser potent pain medication.
Least to most potent pain medications are defined
as: acetaminophen < NSAID < tramadol < opioids
(morphine, oxycodone, hydromorphone).
- Requesting a lesser dose of the same medication IF
ORDERED.
- Requesting a less intrusive route of administration
if both routes are prescribed by the provider (PO <
IV).
12/23/24 05:58
Code Status As Directed
Resuscitation Status: Full Code
12/26/24 11:00
DC Protocol for Telemetry ONCE
Abnormal Lab Results
12/23/24
03:44
Hgb 11.9 L g/dL
(12.0-16.0)
MCHC 31.2 L g/dL
(33.0-37.0)
RDW 15.9 H %
(11.5-14.5)
Abs Immat Gran (auto) 0.1 H 10^3/uL
(0-0.05)
Absolute Neuts (auto) 8.3 H 10^3/uL
(1.4-6.5)
Absolute Lymphs (auto) 0.7 L 10^3/uL
(1.2-3.4)
Immature Gran % 1.2 H %
(0-0.5)
Neutrophils % 88.1 H %
(42.2-75.2)
Lymphocytes % 7.0 L %
(20.5-51.1)
BUN 26 H mg/dl
(7-17)
Creatinine 0.5 L mg/dL
(0.6-1.0)
Glucose 186 H mg/dl
(70-99)
AST 64 H U/L
(14-36)
ALT 44 H U/L
(0-35)
Alkaline Phosphatase 130 H U/L
(38-126)
12/23/24 03:44
12/23/24 03:44
Vital Signs
Initial and Last Documented VS:
Initial Vital Signs
Pulse Resp BP Pulse Ox
96 28 142/93 100
12/23/24 03:35 12/23/24 03:35 12/23/24 03:35 12/23/24 03:35
Last Documented Vital Signs
Temp Pulse Resp BP Pulse Ox
98.1 F 110 30 134/73 95
12/23/24 03:42 12/23/24 06:00 12/23/24 06:00 12/23/24 06:00 12/23/24 06:00
MDM/Problems Addressed
Differential Diagnosis Includes:
Concern for exacerbation of COPD, recurrent pneumonia, other consideration is CHF, ACS.
Will continue nebulizer treatment, nasal cannula oxygen. Labs are pending. Will check portable chest x-ray.
Due to acute hypoxic respiratory failure patient will require acute hospitalization.
Chronic conditions affecting care: Arrhythmia, COPD and Psychiatric illness (Mild dementia, poor memory.)
*Radiology
Radiology exam reviewed: preliminary read by ED provider (Chest x-ray shows hyperinflation, interstitial lung disease, no evidence of infiltrate.)
*Pulse Oximetry
Patient hypoxic: yes
*Service Consultant Interpretation
Rate: tachycardiac
Interpretation: abnormal
Rhythm: sinus and PAC's
*Critical Care Note
Total Time (30-74mins, 75-104mins- exclusive of procedures): Not Applicable
ED Attending Note
-
Portions of this chart may have been created with voice recognition software.� Occasional wrong word or��sound alike� substitutions may have occurred due to the inherent limitations of voice recognition software.
Discharge Plan
Departure
Prescriptions:
No Action
rosuvastatin 5 MG tablet
5 mg PO QPM
montelukast 10 MG tablet
10 mg PO QPMPRN PRN (Reason: ALLERGIES)
azelastine 1 SPRAY aerosol,spray
1 spray intranasal BID
PreserVision AREDS 1 CAP capsule
1 cap PO BID
lisinopril 5 MG tablet
5 mg PO DAILY
diltiazem HCl 180 MG capsule,extended release 24hr
180 mg PO QPM
Eliquis 5 MG tablet
5 mg PO BID
mirtazapine 15 mg Tablet
15 mg PO QPM Qty: 0
Trelegy Ellipta 100-62.5-25 mcg Blister With Device
1 inh INHALATION R DAILY
albuterol sulfate 90 mcg/actuation Hfa Aerosol Inhaler
1 inh INHALATION Q4HPRN PRN (Reason: sob)
Referrals:
UNKNOWN - PT DOES,NOT KNOW [Family Provider] -
Interventions
Interventions:
*Risk Screen - Suicide Last Done: 12/23/24 03:32
*General Assessment Last Done: 12/23/24 03:32
*Neglect/Abuse Screening Last Done: 12/23/24 03:32
*ED- Fall Risk Assessment Last Done: 12/23/24 06:12
*ED COVID-19 Vaccine History Last Done: 12/23/24 03:32
ED- Cardiac Assessment Last Done: 12/23/24 03:50
ED- Pulmonary Assessment Last Done: 12/23/24 03:50
Discharge Date and Time
Print Language: GAMBIAN
[2024-12-23 05:53] LABS: COVID-19 Antigen Negative (Negative)
--- NOTE | 2024-12-23 06:02 | HPS.HSE ---
Family Physician
-
Family Physician: NOT KNOW UNKNOWN - PT DOES
Chief Complaint
-
SOB
History of Present Illness
Patient is an 89y F with PMH significant for A-Fib, hypertension and COPD who presents to ED complaining of SOB this evening. Patient states that she experienced a sensation of 'palpitations', racing heartbeat and SOB this evening before bed.
Her symptoms persisted and she presented to the ED for further evaluation. Patient denies any recent cough, fevers / chills, GI or symptoms. In the ED, she is noted to have increased [id number]. She complains of L ankle pain as well due
to a chronic lateral ankle wound.
Medical History
Past Medical History
Past Medical History: Reports Other
Additional Past Medical History:
Atrial Fibrillation
Hypertension
COPD
Past Surgical History: Reports Other
Additional Past Surgical History:
Bilateral HUGO
Appendectomy
Cataracts
Social History
Tobacco: Former Smoker
Alcohol: None
Drug: None
Family History
Family History: Not pertinent
Allergies / Home Medications
Allergies reflects when Allergies were last updated in [facility].
Home Medications with original date entered in [facility]
Allergy/Medication List:
Allergies
Allergy/AdvReac Type Severity Reaction Status Date / Time
animal dander Allergy Unknown Verified 12/23/24 03:37
morphine Allergy nausea and Verified 12/23/24 03:37
vomiting
peanut Allergy Unknown Verified 12/23/24 03:37
prednisone AdvReac Toxic Verified 12/23/24 04:12
metabolic
encephalopathy
Home Medications
azelastine 137 mcg (0.1 %) nasal spray 1 spray intranasal BID 02/02/22
montelukast 10 mg tablet 10 mg PO QPMPRN PRN ALLERGIES 02/02/22
rosuvastatin 5 mg tablet 5 mg PO QPM High cholesterol 02/02/22
vitamins A,C,Z-qtnn-quiizz 4,296 mcg-226 mg-90 mg capsule (PreserVision AREDS) 1 cap PO BID Supplement 02/02/22
apixaban 5 mg tablet (Eliquis) 5 mg PO BID Blood clot prevention/tx 02/27/22
diltiazem HCl 180 mg capsule,extended release 24 hr 180 mg PO QPM Blood pressure 02/27/22
lisinopril 5 mg tablet 5 mg PO DAILY Blood pressure 02/27/22
mirtazapine 15 mg tablet 15 mg PO QPM Depression ##0 03/04/22
fluticasone fur. 100 mcg-umeclid 62.5 mcg-vilant 25 mcg inhalat.powder (Trelegy Ellipta) 1 inh inhalation R DAILY 09/28/24
albuterol sulfate 90 mcg/actuation aerosol inhaler 1 inh inhalation Q4HPRN PRN sob 12/23/24
Review of Systems
-
History Source: Patient
A 12 point ROS was completed and negative except as noted: Yes
Constitutional: Reports Fatigue; Denies Fever or Chills
Respiratory: Reports Trouble Breathing; Denies Cough or Hemoptysis
Cardiac: Reports Palpitations; Denies Chest Pain, Diaphoresis or Syncope
Abdomen/GI: Denies Abdominal Pain, Nausea, Vomiting or Diarrhea
: Denies Dysuria, Frequency or Flank Pain
Musculoskeletal: Reports Joint Pain (L ankle pain / 'burning'.); Denies Edema
Neurological: Denies Dizzy or Headache
Physical Exam
Vital Signs
Vital Signs
Temp Pulse Resp BP Pulse Ox
98.1 F 104 27 139/48 93
12/23/24 03:42 12/23/24 05:00 12/23/24 05:00 12/23/24 05:00 12/23/24 05:00
Physical Exam
General: Other (89y F in mild distress due to dyspnea / [id number].)
HEENT: Moist mucous membranes and PERRLA
Respiratory: Other (Decreased BS throughout with expiratory wheezes. No rales / rhonchi.)
Cardiac: S1/S2, Irregular Rhythm and Murmur (II/ LEMUEL)
GI: Soft, Non Tender, Non Distended and Normal Bowel Sounds
Musculoskeletal: No Clubbing, No Cyanosis and Other (Scaly lower extremities. No edema. Superficial / chronic breakdown over the L lateral malleolus. )
Neuro: AO x 3
Laboratory Results
-
12/23/24 03:44
12/23/24 03:44
Laboratory Results
Total Bilirubin 0.6 mg/dl (0.2-1.3) 12/23/24 03:44
AST 64 U/L (14-36) H 12/23/24 03:44
ALT 44 U/L (0-35) H 12/23/24 03:44
Alkaline Phosphatase 130 U/L (38-126) H 12/23/24 03:44
Troponin I < 0.012 ng/ml 12/23/24 03:46
Impression/Plan
-
A/P: Patient is an 89y F with PMH significant for A-Fib, hypertension and COPD who presents to ED complaining of palpitations and SOB.
COPD with Acute Exacerbation
- Admit for further evaluation and treatment.
- Patient with evident dyspnea, scattered wheezing and generally decreased breath sounds.
- No cough, fevers / chills, etc. COVID / flu negative. CXR unremarkable.
- Continue IV steroids for now and taper as able. (Note made of prior issues which seem c/w steroid induced mood changes - not 'true' allergy).
- Nebs ATC and PRN.
- Follow for clinical improvement.
- Observe off of abx for now and follow for fever, cough, etc.
Paroxysmal Atrial Fibrillation
- Stable. In A-Fib at present with rates around 100 bpm.
- Continue usual med regimen including Cardizem and Eliquis.
- Monitor on tele while on steroids / nebs.
Benign Hypertension
- Stable. Continue current medications with holding parameters.
DVT Prophylaxis: On Eliquis
Code Status: Full
--- NOTE | 2024-12-23 07:37 | EDRN ---
Patient taken to room 337-1 on monitor on stretcher by pathology technologist. Patient on O2 2LNC.
[2024-12-23] MEDS: DUONEB 3 ML INH ×4 (07:52→19:38)
[2024-12-23] MEDS: ELIQUIS 5 MG PO ×2 (09:11→20:35)
[2024-12-23] MEDS: ZESTRIL 5 MG PO (09:11)
[2024-12-23] MEDS: DECADRON 4 MG IV ×2 (11:13→20:35)
[2024-12-23] MEDS: CARDIZEM CD 180 MG PO (17:21)
[2024-12-23] MEDS: CRESTOR 5 MG PO (17:22)
[2024-12-23] MEDS: REMERON 15 MG PO (17:22)
[2024-12-24] VITALS (8 sets, daily range): BP systolic 102–166; BP diastolic 52–87; BMI 29.1
[2024-12-24] MEDS: DECADRON 4 MG IV ×3 (03:16→23:09)
[2024-12-24 06:05] LABS: Hematocrit 32.9 % (37.0-47.0); Hemoglobin 10.6 g/dL (12.0-16.0); Mean Corp Hgb Conc. 32.2 g/dL (33.0-37.0); Mean Corpuscular Hgb 27.8 pg (27.0-31.0); Mean Corpuscular Volume 86.4 fL (81.0-99.0); Platelet Count 301 10^3/uL (130-400); Red Blood Cell Count 3.81 10^6/uL (4.20-5.40); Red Cell Dist. Width 15.7 % (11.5-14.5); White Blood Cell Count 7.8 10^3/uL (4.8-10.8)
[2024-12-24 06:38] LABS: Blood Urea Nitrogen 23 mg/dl (7-17); Calcium 9.2 mg/dl (8.4-10.2); Carbon Dioxide 25 mmol/L (22-30); Chloride 108 mmol/L (98-107); Estimated Creatinine Clearance 60 ml/min; Glucose 179 mg/dl (70-99); Potassium 4.5 mmol/L (3.5-5.1); Sodium 139 mmol/L (135-145); eGFR > 60.00
[2024-12-24] MEDS: DUONEB 3 ML INH ×4 (08:04→19:56)
[2024-12-24] MEDS: ELIQUIS 5 MG PO ×2 (08:39→20:19)
[2024-12-24] MEDS: ZESTRIL 5 MG PO (08:39)
--- NOTE | 2024-12-24 12:36 | W.PN.HOSP.TC ---
Today's Communication/Plan
-
decrease steroids
wean off o2 as possible
Assessment / Plan
Assessment / Plan
COPD with Acute Exacerbation
Acute hypoxic respiratory insufficiency
- Patient with evident dyspnea, scattered wheezing and generally decreased breath sounds.
- No cough, fevers / chills, etc. COVID / flu negative. CXR unremarkable.
- Nebs ATC and PRN.
- Remains on oxygen through nasal cannula, wean off as possible.
- Decreasing dexamethasone dose to 4mg q12h.
Paroxysmal Atrial Fibrillation
- Stable. In A-Fib at present with rates around 100 bpm.
- Continue usual med regimen including Cardizem and Eliquis.
- Monitor on tele while on steroids / nebs.
Benign Hypertension
- Stable. Continue current medications with holding parameters.
DVT Prophylaxis: On Eliquis
Code Status: Full
Patient is anxious and tearful due to her social situation. Manan help requested for general support after discussion with patient
Anticipated Discharge: 24 - 48 hours
Subjective/Interval History
-
Date of Service: December 24, 2024
Patient tearful and anxious due to her social situation
Patient is clearly wheezing and dyspneic while talking to me although stated this being normal
Also on oxygen 2 L nasal cannula
Objective Data
-
Labs:
Laboratory Results
12/24/24
05:46
WBC 7.8
Hgb 10.6 L
Hct 32.9 L
Plt Count 301
Sodium 139
Potassium 4.5
Chloride 108 H
Carbon Dioxide 25
BUN 23 H
Creatinine 0.5 L
Glucose 179 H
Calcium 9.2
Vital Signs:
Vital Signs
Temp Pulse Resp BP Pulse Ox
97.8 F 85 18 102/52 94
12/24/24 10:53 12/24/24 11:30 12/24/24 11:30 12/24/24 10:53 12/24/24 11:30
I&O
12/23/24 12/24/24 12/25/24
06:59 06:59 06:59
Intake Total 1560 / 1560
Balance 1560 / 1560
Review of Systems
-
Respiratory: Reports Trouble Breathing and Wheezing; Denies Cough
Cardiac: Reports No Symptoms
Abdomen/GI: Reports No Symptoms
Physical Exam
-
General: No Apparent Distress and Comfortable
HEENT: Oxygen (3L NC)
Respiratory: Wheezes
Cardiac: Regular Rhythm and S1/S2; Negative Murmur or Rub
GI: Soft, Nontender and Nondistended
Musculoskeletal: No Edema
Neuro: Awake, Alert, Oriented, No Motor Deficits and Nonfocal/Grossly Intact
Psych: Calm
--- NOTE | 2024-12-24 16:06 | CHAP ---
Paged for Susy, who was tearful and in distress when I arrived. She was able to share her story, and she welcomed prayer, which calmed her. Emotional and spiritual support provided.
[2024-12-24] MEDS: REMERON 15 MG PO (17:38)
[2024-12-24] MEDS: CARDIZEM CD 180 MG PO (17:39)
[2024-12-24] MEDS: CRESTOR 5 MG PO (17:39)
[2024-12-25 03:00] VITALS: BP 159/80
[2024-12-25 06:00] VITALS: BMI 28.4
[2024-12-25 07:15] VITALS: BP 152/82
[2024-12-25] MEDS: ZESTRIL 5 MG PO (07:27)
[2024-12-25] MEDS: ELIQUIS 5 MG PO (07:27)
[2024-12-25] MEDS: DUONEB 3 ML INH ×4 (08:30→19:38)
--- NOTE | 2024-12-25 09:11 | W.PN.HOSP.TC ---
Today's Communication/Plan
-
IV steroids
Assessment / Plan
Assessment / Plan
Physical exam:
General: Acute on chronically ill
HEENT: Normocephalic, Atraumatic and Moist Mucous Membranes
Respiratory: Decreased breath sounds bilateral and few scattered wheezes; Negative Rales or Rhonchi
Cardiac: Regular Rhythm and S1/S2
GI: Soft, Nontender and Nondistended
Musculoskeletal: No Clubbing, No Cyanosis and No Edema
Neuro: Awake, Alert and Oriented
Psych: Calm
A/P:
COPD with Acute Exacerbation
Acute hypoxic respiratory insufficiency
- Patient with evident dyspnea, scattered wheezing and generally decreased breath sounds.
- No cough, fevers / chills, etc. COVID / flu negative. CXR unremarkable.
- Nebs ATC and PRN.
- Remains on oxygen through nasal cannula, wean off as possible. Assess for home oxygen needs tomorrow.
- Continue IV dexamethasone dose 4mg q12h.
Paroxysmal Atrial Fibrillation
- Stable. In A-Fib at present with rates around 100 bpm.
- Continue usual med regimen including Cardizem and Eliquis.
- Monitor on tele while on steroids / nebs.
Benign Hypertension
- Stable. Continue current medications with holding parameters.
DVT Prophylaxis: On Eliquis
Code Status: Full
Patient was anxious and tearful due to her social situation. [place] help requested by Dr. Plummer for general support after discussion with patient. Today she is more calm and receptive.
Anticipated Discharge: 24 - 48 hours
Subjective/Interval History
-
Date of Service: December 25, 2024
Patient feels better. Still shortness of breath and cough. Afebrile
Objective Data
-
Vital Signs:
Vital Signs
Temp Pulse Resp BP Pulse Ox
97.8 F 90 20 152/82 93
12/25/24 07:15 12/25/24 08:37 12/25/24 08:37 12/25/24 07:27 12/25/24 08:37
I&O
12/24/24 12/25/24 12/26/24
06:59 06:59 06:59
Intake Total 1560 / 1560 930 / 930
Balance 1560 / 1560 930 / 930
[2024-12-25 10:53] VITALS: BP 130/55
[2024-12-25] MEDS: DECADRON 4 MG IV (12:10)
--- NOTE | 2024-12-25 12:30 | WOUNDNOTE ---
ARLETH RN note: Patient admitted with COPD exacerbation.
See H&P for complete history. Lives at [facility].
PMH: ED Past Medical History: Arrthythmia (A. fib), COPD, HTN and Hypercholesterolemia
ED Past Surgical History: Appendectomy
Wound Location and type/assessment: Patient admitted with: L lateral ankle small shallow ulcer, base pink, scant drainage. Patient reports she wears shoes that rubbed on ankle causing wound. Legs and feet very dry and flaky, patient reports she is
allergic to so many moisturizers, did not want to try mineral oil. Heels and sacrum intact.
Appetite: Good.
Pressure redistribution devices in place: Accumax, ambulates with walker and minimal assist.
Plan: Continue local wound care. Teaching done with patient regarding wound care and to keep area padded if wearing same shoes. Patient states she will. Will confirm orders with hospitalist and updated nurse Aspen.
Updated care plan and will follow as needed.
Note to case management of equipment requested for discharge: None.
Recommend follow up at wound care center upon discharge.
[2024-12-25 15:50] VITALS: BP 141/92
--- NOTE | 2024-12-25 15:57 | CM ---
Alert awake oriented patient who lives at [facility] . She is independent in all activities of daily living.She uses a cane walker.She has 2 supportive dgts.Requested PT OT eval order from .
No hx of VN or SNF.
Pharmacy [facility]
PCP [facility]
PLAN Will need PT OT evals for dc planning
[2024-12-25] MEDS: CRESTOR 5 MG PO (17:15)
[2024-12-25] MEDS: REMERON 15 MG PO (17:16)
[2024-12-25] MEDS: CARDIZEM CD 180 MG PO (17:16)
[2024-12-25 19:00] VITALS: BP 162/84
[2024-12-25] MEDS: ELIQUIS PO (21:21)
--- NOTE | 2024-12-25 21:23 | PTCARENOTE ---
Shortly after start of shift, pt became paranoid and agitated. Pt stated 'she doesn't trust anyone here, and is scared of everyone'. RN spent quite some time talking to patient and reassuring her that she is safe and everything is fine. Pt is AAOX3,
knows she is at [facility], knows her name/, date/month. Pt was helped to the bathroom, and felt better after getting back into bed. However, when RN went in for nighttime meds pt was once again paranoid and agitated, refused her meds
and told RN to 'get out of here'.
--- NOTE | 2024-12-25 22:43 | W.PN.UPDATE ---
Update Note
Progress Note Update
Reported by the nursing staff that the patient is anxious and became paranoid, refusing to take night meds. Nursing staff has a conversation with the daughter and she mentioned that the patient gets confused and agitated while she on steroids.
Daughter requested to hold dexamethasone tonight.
On assessment patient alert, not interested to have conversation, easily agitated, paranoid and refusing to receive any meds from nursing staff. Deborah sob, pain or any other symptoms.
By reviewing the chart, last admission 10/01/24 patient had similar episode of confusion/TME that likely from steroids.
Will hold Dexamethasone for now as the patient denies SOB.
[2024-12-26] VITALS (7 sets, daily range): BP systolic 113–172; BP diastolic 58–87; PULSE 79; O2SAT 96; BMI 29.1
[2024-12-26] MEDS: DECADRON IV (00:08)
[2024-12-26] MEDS: DUONEB 3 ML INH ×4 (07:20→19:35)
[2024-12-26] MEDS: ZESTRIL 5 MG PO (08:03)
[2024-12-26] MEDS: ELIQUIS 5 MG PO ×2 (08:04→20:15)
--- NOTE | 2024-12-26 09:03 | W.PN.HOSP.TC ---
Today's Communication/Plan
-
Steroids. Seroquel as needed. Discharge planning
Assessment / Plan
Assessment / Plan
Physical exam:
General: Acute on chronically ill
HEENT: Normocephalic, Atraumatic and Moist Mucous Membranes
Respiratory: Decreased breath sounds bilateral and few scattered wheezes; Negative Rales or Rhonchi
Cardiac: Regular Rhythm and S1/S2
GI: Soft, Nontender and Nondistended
Musculoskeletal: No Clubbing, No Cyanosis and No Edema
Neuro: Awake, Alert and Oriented
Psych: Calm
A/P:
COPD with Acute Exacerbation
Acute hypoxic respiratory insufficiency
- Patient with evident dyspnea, scattered wheezing and generally decreased breath sounds.
- No cough, fevers / chills, etc. COVID / flu negative. CXR unremarkable.
- Nebs ATC and PRN.
- Remains on oxygen through nasal cannula, wean off as possible.
- IV dexamethasone held last night due to delirium. Will switch to oral steroids today. Will add Seroquel as needed.
-PT OT eval for discharge disposition
-Assess for home oxygen needs
Delirium:
Agree with holding IV steroids but she does need steroids so we will switch to oral and will do a quick taper.
Will add Seroquel as needed in the event that she requires anything else.
Paroxysmal Atrial Fibrillation
- Stable. In A-Fib at present with rates around 100 bpm.
- Continue usual med regimen including Cardizem and Eliquis.
- Monitor on tele while on steroids / nebs.
Benign Hypertension
- Stable. Continue current medications with holding parameters.
DVT Prophylaxis: On Eliquis
Code Status: Full
Patient was anxious and tearful due to her social situation. [place] help requested by Dr. Plummer for general support after discussion with patient.
Anticipated Discharge: Within 24 hours
Subjective/Interval History
-
Date of Service: December 26, 2024
Patient had some hyperactive delirium overnight. Much better this morning. Still some cough and shortness of breath. Afebrile
Objective Data
-
Vital Signs:
Vital Signs
Temp Pulse Resp BP Pulse Ox
97.5 F 95 18 172/86 94
12/26/24 07:15 12/26/24 08:03 12/26/24 07:56 12/26/24 08:03 12/26/24 07:56
I&O
12/25/24 12/26/24 12/27/24
06:59 06:59 06:59
Intake Total 930 / 930 1080 / 1080
Balance 930 / 930 1080 / 1080
[2024-12-26] MEDS: DELTASONE 40 MG PO (09:29)
--- NOTE | 2024-12-26 16:15 | CM ---
Spoke with pt she requested CM call Roxie dgt because she was unsure of which VN
Reyes said she wanted [facility] Referral made.
Roxie said she will drive her back to [facility].
Room air pox 96%.
PLAN Return to [facility] with [facility]
[2024-12-26] MEDS: CRESTOR 5 MG PO (17:10)
[2024-12-26] MEDS: REMERON 15 MG PO (17:10)
[2024-12-26] MEDS: CARDIZEM CD 180 MG PO (17:10)
[2024-12-27 03:40] VITALS: BP 141/73
[2024-12-27 05:28] VITALS: BMI 29.0
[2024-12-27 07:30] VITALS: BP 121/57; BP 153/70
[2024-12-27] MEDS: DUONEB 3 ML INH ×4 (07:35→19:34)
[2024-12-27] MEDS: DELTASONE 40 MG PO (08:38)
--- NOTE | 2024-12-27 08:38 | W.PN.HOSP.TC ---
Addendum entered and electronically signed by Ignacio Quinonez MD 12/27/24 19:26:
Patient is in need of oxygen at 2 liters/minute via nasal cannula continuously due to pulse oximetry of 86% on room air on ambulation. Oxygen will help to improve hypoxemia. Patient is mobile within the home. DuoNeb therapy has been tried and is
ineffective in treating hypoxemia related symptoms. Oxygen is needed to improve symptoms.
Addendum entered and electronically signed by Ignacio Quinonez MD 12/27/24 13:12:
I discussed with daughter over the phone today.
Original Note:
Today's Communication/Plan
-
Oral steroids and bronchodilators. Discharge planning
Assessment / Plan
Assessment / Plan
Physical exam:
General: Acute on chronically ill
HEENT: Normocephalic, Atraumatic and Moist Mucous Membranes
Respiratory: Decreased breath sounds bilateral and few scattered wheezes; Negative Rales or Rhonchi
Cardiac: Regular Rhythm and S1/S2
GI: Soft, Nontender and Nondistended
Musculoskeletal: No Clubbing, No Cyanosis and No Edema
Neuro: Awake, Alert and Oriented
Psych: Calm
A/P:
COPD with Acute Exacerbation
Acute hypoxic respiratory insufficiency
- Patient with evident dyspnea, scattered wheezing and generally decreased breath sounds.
- No cough, fevers / chills, etc. COVID / flu negative. CXR unremarkable.
- Nebs ATC and PRN.
- Remains on oxygen through nasal cannula, wean off as possible.
- IV dexamethasone held night of 12/25 due to delirium. Switched to oral steroids yesterday. Added Seroquel as needed.
-PT OT eval for discharge disposition--> they recommend home health
-Assess for home oxygen needs
Delirium:
Agree with holding IV steroids but she does need steroids so we will switch to oral and will do a quick taper.
Will add Seroquel as needed in the event that she requires anything else.
Paroxysmal Atrial Fibrillation
- Stable. In A-Fib at present with rates around 100 bpm.
- Continue usual med regimen including Cardizem and Eliquis.
- Monitor on tele while on steroids / nebs.
Benign Hypertension
- Stable. Continue current medications with holding parameters.
DVT Prophylaxis: On Eliquis
Code Status: Full
Patient was anxious and tearful due to her social situation. [place] help requested by Dr. Plummer for general support after discussion with patient.
Anticipated Discharge: Within 24 hours
Subjective/Interval History
-
Date of Service: December 27, 2024
Patient doing better. Less shortness of breath and less cough. Afebrile
Objective Data
-
Vital Signs:
Vital Signs
Temp Pulse Resp BP Pulse Ox
94.4 F L 84 20 153/70 93
12/27/24 07:30 12/27/24 07:51 12/27/24 07:51 12/27/24 07:30 12/27/24 07:51
I&O
12/26/24 12/27/24 12/28/24
06:59 06:59 06:59
Intake Total 1080 / 1080 1080 / 1080
Balance 1080 / 1080 1080 / 1080
[2024-12-27] MEDS: ELIQUIS 5 MG PO ×2 (08:39→20:19)
[2024-12-27] MEDS: ZESTRIL 5 MG PO (08:39)
[2024-12-27 10:57] VITALS: BP 124/72
--- NOTE | 2024-12-27 11:35 | VNURNOTE ---
Home health liaison spoke with daughter Roxie to discuss [facility] services, visit scheduling/frequency, homebound status and pet policy. Roxie understands home visits will be 1-2 times a week to assess and teach medical management. Roxie aware
visiting nurse will contact patient (per Roxie's request) for start of care within 1-2 days after discharge from . [facility] Referral completed in care port
--- NOTE | 2024-12-27 11:38 | VNURNOTE ---
Home health liaison spoke with patient's daughter Roxie to discuss [facility] services, visit scheduling/frequency, homebound status and pet policy. Roxie is agreeable to VN services and understands home visits will be 1-2 times a week to assess
and teach medical management. Roxie aware a visiting nurse will contact for start of care within 1-2 days after discharge from . [facility] Referral completed in care port
[2024-12-27 15:03] VITALS: BP 126/57
--- NOTE | 2024-12-27 17:10 | CM ---
As per care port [facility] can not accept pt
Susy from [facility] spoke with Dgt referral will change to [facility].
Roxie said she will drive her back to [facility].
Room air pox 96%.
PLAN Return to [facility] with [facility]
[2024-12-27] MEDS: REMERON 15 MG PO (18:16)
[2024-12-27] MEDS: CRESTOR 5 MG PO (18:16)
[2024-12-27] MEDS: CARDIZEM CD PO (18:19)
[2024-12-27 19:40] VITALS: BP 149/52
[2024-12-27 23:35] VITALS: BP 136/71
[2024-12-28 02:48] VITALS: BP 148/79
[2024-12-28 06:00] VITALS: BMI 28.6
[2024-12-28 07:15] VITALS: BP 148/62
[2024-12-28] MEDS: DUONEB 3 ML INH ×3 (07:51→15:31)
[2024-12-28] MEDS: ELIQUIS 5 MG PO (08:50)
[2024-12-28] MEDS: DELTASONE 30 MG PO (08:52)
[2024-12-28] MEDS: ZESTRIL 5 MG PO (08:52)
--- NOTE | 2024-12-28 08:58 | W.PN.HOSP.TC ---
Today's Communication/Plan
-
Discharge planning today
Assessment / Plan
Assessment / Plan
Physical exam:
General: No acute distress
HEENT: Normocephalic, Atraumatic and Moist Mucous Membranes
Respiratory: Decreased breath sounds bilateral ; Negative Rales, Wheezes, or Rhonchi
Cardiac: Regular Rhythm and S1/S2
GI: Soft, Nontender and Nondistended
Musculoskeletal: No Clubbing, No Cyanosis and No Edema
Neuro: Awake, Alert and Oriented, no neurological deficits
Psych: Calm
A/P:
COPD with Acute Exacerbation
Acute hypoxic respiratory insufficiency
- Patient with evident dyspnea, scattered wheezing and generally decreased breath sounds.
- No cough, fevers / chills, etc. COVID / flu negative. CXR unremarkable.
- Nebs ATC and PRN.
- Remains on oxygen through nasal cannula, wean off as possible.
- IV dexamethasone held night of 12/25 due to delirium. Cont oral steroids taper. Added Seroquel as needed.
-PT OT eval for discharge disposition--> they recommend home health
-Assess for home oxygen needs--> looks like she does not need oxygen upon discharge upon reevaluation today.
-Discussed with daughter over the phone yesterday.
-Plan to discharge today
Delirium:
Agree with holding IV steroids but she does need steroids so we will switch to oral and will do a quick taper. Discussed with daughter that in the future we need to do a quick taper of steroids as soon as possible.
Will add Seroquel as needed in the event that she requires anything else.
Paroxysmal Atrial Fibrillation
- Stable. In A-Fib at present with rates around 100 bpm.
- Continue usual med regimen including Cardizem and Eliquis.
- Monitor on tele while on steroids / nebs.
Benign Hypertension
- Stable. Continue current medications with holding parameters.
DVT Prophylaxis: On Eliquis
Code Status: Full
Anticipated Discharge: Today
Subjective/Interval History
-
Date of Service: December 28, 2024
Patient feels well. Less shortness of breath and cough.
Objective Data
-
Vital Signs:
Vital Signs
Temp Pulse Resp BP Pulse Ox
97.9 F 77 16 148/62 96
12/28/24 07:15 12/28/24 07:53 12/28/24 07:53 12/28/24 07:15 12/28/24 07:53
I&O
12/27/24 12/28/24 12/29/24
06:59 06:59 06:59
Intake Total 1080 / 1080 1620 / 1620
Balance 1080 / 1080 1620 / 1620
[2024-12-28 11:04] VITALS: BP 127/63
--- NOTE | 2024-12-28 11:59 | W.DCSUMMARY ---
Discharge Summary
Discharge Data
Date of Admission: 12/23/24
Date of Discharge: 12/28/24
-
Pending Results: No
Hospital Course
Patient 89 years old female with history of hypertension, COPD, A-fib, came into the hospital cough and shortness of breath and found to be in COPD exacerbation. Patient was treated with IV steroids and bronchodilators. There was no evidence of
pneumonia. Patient improved slowly over the her hospital stay. Course complicated with mild delirium that resolved quickly after tapering the courses of steroids. Patient was assessed for home oxygen needs and she did not meet criteria for home
oxygen. Patient hemodynamically stable and improved symptomatically substantially. Patient will be discharged in stable condition today.
Discharge duration: 35 minutes
Discharge Plan
-
Patient Disposition: Home with Home Care
Discharge Diagnosis/Procedures: Acute chronic obstructive pulmonary disease exacerbation. Delirium. Paroxysmal atrial fibrillation. Hypertension
Diet: Low Cholesterol
Activity: As tolerated
Blood Work: Please PCP to order CBC, BMP within 1 week
Activity Restrictions/Additional Instructions:
Wound Care Instructions
L lateral ankle: clean with soap and water, silicone foam(or equivalent) change q other day and prn drainage.
Leg elevation when sitting
Follow up at wound care center (*if does not heal) call for an appointment.
Referrals:
Primary care, provider [Other] (See less than 1 week)
Prescriptions:
New
prednisone 10 mg Tablet
See Rx Instructions .ROUTE .COMPLEX Qty: 30 0RF
Rx Instructions:
Take By Mouth:
40 mg daily x3 days, 30 mg daily x3 days,
20 mg daily x3 days, 10 mg daily x3 days.
Continued
rosuvastatin 5 MG tablet
5 mg PO QPM
montelukast 10 MG tablet
10 mg PO QPMPRN PRN (Reason: ALLERGIES)
azelastine 1 SPRAY aerosol,spray
1 spray intranasal BID
PreserVision AREDS 1 CAP capsule
1 cap PO BID
lisinopril 5 MG tablet
5 mg PO DAILY
diltiazem HCl 180 MG capsule,extended release 24hr
180 mg PO QPM
Eliquis 5 MG tablet
5 mg PO BID
mirtazapine 15 mg Tablet
15 mg PO QPM Qty: 0
Trelegy Ellipta 100-62.5-25 mcg Blister With Device
1 inh INHALATION R DAILY
albuterol sulfate 90 mcg/actuation Hfa Aerosol Inhaler
1 inh INHALATION Q4HPRN PRN (Reason: sob)
Discharge Orders:
Discharge Patient (As Directed); Ordered 12/28/24
Ordered By: Ignacio Quinonez
Discharge Date and Time
Discharge Date/Time: 12/28/24 18:26
Print Language: GIBRALTARIAN
--- NOTE | 2024-12-28 13:33 | CM ---
MD entered order for discharge.
Spoke with dgt Roxie she said she will drive her back to [facility] ind living at 5:30 tonight .
Home oxygen beba says room air no need for home oxygen.
IMM reviewed with dgt she agrees with IMM and all questions answered.
Called [facility] they said no report needed . pt is independent living.
PLAN Home with VN
[2024-12-28 15:45] VITALS: BP 126/84
--- NOTE | 2024-12-28 15:45 | PTCARENOTE ---
Patient ambulating in room with walker and supervision. Patient OOB in chair, well tolerated. Patient tolerated regular diet. Patient agitated at times when she feels her autonomy is being threatened. SN had discussion and reassured patient.
Encourage patient to use cream on legs, patient adamantly refused. Patient states, 'I am allergic to most lotions.' Patient alert to person and place, forgetful at times, but easily reoriented.
[2024-12-28] MEDS: CRESTOR PO (17:15)
[2024-12-28] MEDS: REMERON PO (17:15)
[2024-12-28] MEDS: CARDIZEM CD PO (17:15)
== END 2024-12-28 18:26 | disposition home health service (06) | DRG 191 ==
LOC: 3 WEST ACU 07:01
PROVIDERS: ADMITTING PHYSICIAN Hospitalist; ATTENDING PHYSICIAN Hospitalist; EMERGENCY PHYSICIAN Emergency Medicine
DX: J44.1 Chronic obstructive pulmonary disease with (acute) exacerbation (principal); F05 Delirium due to known physiological condition; R09.02 Hypoxemia; I48.0 Paroxysmal atrial fibrillation; I10 Essential (primary) hypertension; E78.00 Pure hypercholesterolemia, unspecified; F03.90 Unspecified dementia, unspecified severity, without behavioral disturbance, psychotic disturbance, mood disturbance, and anxiety; Z87.891 Personal history of nicotine dependence; Z11.52 Encounter for screening for COVID-19
CPT/HCPCS: 71045; 80048; 80053; 83880; 84484; 85025; 85027; 87502; 87811; 94640; 96374; 97162; 97166; 97535; 99285

== ENCOUNTER 2025-01-04 18:12 | Inpatient (IN) | payer OTHER, SELFPAY ==
[2025-01-04] VITALS (8 sets, daily range): BP systolic 98–130; BP diastolic 44–66; BMI 27.7; BMI 26.8
[2025-01-04 14:37] LABS: % Basophils 0.3 % (0-2); % Eosinophils 0.3 % (0-6); % Immature Granulocytes 0.5 % (0-0.5); % Lymphocytes 5.6 % (20.5-51.1); % Monocytes 3.9 % (1.7-9.3); % Neutrophils 89.4 % (42.2-75.2); Absolute Immature Granulocytes 0.1 10^3/uL (0-0.05); Absolute Lymphocytes 0.6 10^3/uL (1.2-3.4); Absolute Monocytes 0.4 10^3/uL (0.1-0.6); Absolute Neutrophils 9.6 10^3/uL (1.4-6.5); Hematocrit 39.3 % (37.0-47.0); Hemoglobin 12.7 g/dL (12.0-16.0); Mean Corp Hgb Conc. 32.3 g/dL (33.0-37.0); Mean Corpuscular Hgb 27.9 pg (27.0-31.0); Mean Corpuscular Volume 86.4 fL (81.0-99.0); Mean Platelet Volume 8.7 fL (7.4-10.4); Nucleated Red Blood Cells % 0 %; Platelet Count 217 10^3/uL (130-400); Red Blood Cell Count 4.55 10^6/uL (4.20-5.40); Red Cell Dist. Width 15.8 % (11.5-14.5); White Blood Cell Count 10.7 10^3/uL (4.8-10.8)
--- NOTE | 2025-01-04 14:57 | ED.GENMED ---
History of Present Illness
<Salazar Taveras PA-C - Last Filed: 01/04/25 17:07>
General
Chief Complaint: Breathing Problem
Source: patient
Exam Limitations: none
Time Seen by Provider: 01/04/25 14:28
History of Present Illness
History of Present Illness:
89-year-old female recently just discharged from this hospital for COPD exacerbation presents in referral back from [facility] for increased work of breathing and shortness of breath. Patient denies chest pain. She denies a fever. There is no
vomiting. She is not typically on oxygen but currently is requiring oxygen.
Past History
<ROEL Hernandez Last Filed: 01/04/25 17:07>
Past History
ED Past Medical History: Arrthythmia (A. fib), COPD, HTN and Hypercholesterolemia
ED Past Surgical History: Appendectomy
Social History
Tobacco: Former smoker
Alcohol: Former
Drug: None
Personal:
Living: alone
Family History
Family History: Other (Noncontributory)
Phy Exam
<ROEL Hernandez Last Filed: 01/04/25 17:07>
Physical Exam
Physical Exam:
General: Well developed female no acute respiratory distress
HEENT: Normocephalic atraumatic
Heart: Tachycardic and irregular
Lungs: Diffuse inspiratory and expiratory wheeze
Abdomen: Soft nontender nondistended no guarding or rebound
Extremities: Mild edema bilateral lower extremities
Scores
<ROEL Hernandez Last Filed: 01/04/25 17:07>
Heart Failure Risk
Heart Failure Risk Score: Not Applicable
Sepsis
<ROEL Hernandez Last Filed: 01/04/25 17:07>
Sepsis Screening
Sepsis Assessment: Sepsis Ruled Out
Sepsis Screen
Sepsis Screen: Sepsis Ruled Out
Date: 01/04/25
Time: 17:07
Course
<Salazar Taveras PA-C - Last Filed: 01/04/25 17:07>
Orders/Labs/Results
Orders:
Orders
01/04/25 14:23
Electrocardiogram (*1) Urgent
Reason for Study: Other
Other Reason for Exam: Respiratory Distress
Cardiac Monitoring- Treatment ONCE
EKG- Treatment ONCE
IV Insert/Care/Rem.- Treatment PRN
CR Chest - 2 Views Urgent
Comment:
Reason For Exam: respiratory distress
O2 Therapy [RESP] Urgent
Titrate/Wean O2 to maintain O2 sat greater than (%): 93
Special Instructions: TO MAINTAIN CONTINUOUS O2 SATS >/= 93%
Pulse Ox/cont/shift [RESP] Urgent
Quantity: 1
Special Instructions: continuous pulse ox
01/04/25 14:28
COVID-19 Antigen Urgent
Source: Nasal Swab
Complete Blood Count/With Diff Urgent
Comprehensive Metabolic Panel Urgent
NT-proBNP Urgent
Troponin I Urgent
Influenza A+B Rapid Molecular Urgent
[place] Source: Nasal Swab
Specimen Description:
01/04/25 14:56
Ipratropium/Albuterol Sulfate [Duoneb] 3 ml INH R NOW STA
Abnormal Lab Results
01/04/25
14:28
MCHC 32.3 L g/dL
(33.0-37.0)
RDW 15.8 H %
(11.5-14.5)
Abs Immat Gran (auto) 0.1 H 10^3/uL
(0-0.05)
Absolute Neuts (auto) 9.6 H 10^3/uL
(1.4-6.5)
Absolute Lymphs (auto) 0.6 L 10^3/uL
(1.2-3.4)
Neutrophils % 89.4 H %
(42.2-75.2)
Lymphocytes % 5.6 L %
(20.5-51.1)
Potassium 3.2 L mmol/L
(3.5-5.1)
BUN 18 H mg/dl
(7-17)
Creatinine 0.5 L mg/dL
(0.6-1.0)
Glucose 240 H mg/dl
(70-99)
Total Protein 6.0 L g/dl
(6.3-8.2)
Albumin 3.3 L g/dl
(3.5-5.0)
01/04/25 14:28
01/04/25 14:28
Vital Signs
Initial and Last Documented VS:
Initial Vital Signs
BP
130/55
01/04/25 14:22
Last Documented Vital Signs
Temp Pulse Resp BP Pulse Ox
97.7 F 83 19 104/59 96
01/04/25 14:24 01/04/25 16:30 01/04/25 16:30 01/04/25 16:00 01/04/25 16:30
<Apple Vasquez MD - Last Filed: 01/04/25 15:50>
Orders/Labs/Results
Orders:
Orders
01/04/25 14:23
Electrocardiogram (*1) Urgent
Reason for Study: Other
Other Reason for Exam: Respiratory Distress
Cardiac Monitoring- Treatment ONCE
EKG- Treatment ONCE
IV Insert/Care/Rem.- Treatment PRN
CR Chest - 2 Views Urgent
Comment:
Reason For Exam: respiratory distress
O2 Therapy [RESP] Urgent
Titrate/Wean O2 to maintain O2 sat greater than (%): 93
Special Instructions: TO MAINTAIN CONTINUOUS O2 SATS >/= 93%
Pulse Ox/cont/shift [RESP] Urgent
Quantity: 1
Special Instructions: continuous pulse ox
01/04/25 14:28
COVID-19 Antigen Urgent
Source: Nasal Swab
Complete Blood Count/With Diff Urgent
Comprehensive Metabolic Panel Urgent
NT-proBNP Urgent
Troponin I Urgent
Influenza A+B Rapid Molecular Urgent
C[place] Source: Nasal Swab
Specimen Description:
01/04/25 14:56
Ipratropium/Albuterol Sulfate [Duoneb] 3 ml INH R NOW STA
Abnormal Lab Results
01/04/25
14:28
MCHC 32.3 L g/dL
(33.0-37.0)
RDW 15.8 H %
(11.5-14.5)
Abs Immat Gran (auto) 0.1 H 10^3/uL
(0-0.05)
Absolute Neuts (auto) 9.6 H 10^3/uL
(1.4-6.5)
Absolute Lymphs (auto) 0.6 L 10^3/uL
(1.2-3.4)
Neutrophils % 89.4 H %
(42.2-75.2)
Lymphocytes % 5.6 L %
(20.5-51.1)
Potassium 3.2 L mmol/L
(3.5-5.1)
BUN 18 H mg/dl
(7-17)
Creatinine 0.5 L mg/dL
(0.6-1.0)
Glucose 240 H mg/dl
(70-99)
Total Protein 6.0 L g/dl
(6.3-8.2)
Albumin 3.3 L g/dl
(3.5-5.0)
01/04/25 14:28
01/04/25 14:28
Vital Signs
Initial and Last Documented VS:
Initial Vital Signs
BP
130/55
01/04/25 14:22
Last Documented Vital Signs
Temp Pulse Resp BP Pulse Ox
97.7 F 83 19 104/59 96
01/04/25 14:24 01/04/25 16:30 01/04/25 16:30 01/04/25 16:00 01/04/25 16:30
<Salazar Taveras PA-C - Last Filed: 01/04/25 17:07>
MDM/Problems Addressed
Differential Diagnosis Includes:
Shortness of breath. Consider COPD flare versus pneumonia versus heart failure
Patient is wheezing on exam DuoNeb ordered repeat chest x-ray pending. Labs pending. She is currently on 2 L of nasal oxygen
<Salazar Taveras PA-C - Last Filed: 01/04/25 17:07>
*Critical Care Note
Total Time (30-74mins, 75-104mins- exclusive of procedures): Not Applicable
<Salazar Taveras PA-C - Last Filed: 01/04/25 17:07>
Update Note
Update Note:
Patient will be admitted to hospital for COPD exacerbation requiring nasal oxygen
ED Attending Note
<Salazar Taveras PA-C - Last Filed: 01/04/25 17:07>
-
Portions of this chart may have been created with voice recognition software.� Occasional wrong word or��sound alike� substitutions may have occurred due to the inherent limitations of voice recognition software.
<Apple Vasquez MD - Last Filed: 01/04/25 15:50>
ED Attending Note
Patient seen and examined by attending physician: Yes
I performed the substantive portion of visit, reviewed & personally made and approve the management plan that is documented in note by myself or KOFI.: Yes
ED Attending Note:
Patient is tachypneic with decreased breath sounds bilaterally. However, she appears nontoxic. Patient denies chest pain.
Discharge Plan
Departure
Patient Disposition: Admit
Date of Disposition: 01/04/25
Time of Disposition: 17:07
Presentation/result/management discussed w/ accepting MD/DO: Hospitalist
Patient with high blood pressure during this ER visit?: No
Discharge Problem:
COPD with exacerbation
Prescriptions:
No Action
rosuvastatin 5 MG tablet
5 mg PO QPM
montelukast 10 MG tablet
10 mg PO QPMPRN PRN (Reason: ALLERGIES)
azelastine 1 SPRAY aerosol,spray
1 spray intranasal BID
PreserVision AREDS 1 CAP capsule
1 cap PO BID
lisinopril 5 MG tablet
5 mg PO DAILY
diltiazem HCl 180 MG capsule,extended release 24hr
180 mg PO QPM
Eliquis 5 MG tablet
5 mg PO BID
mirtazapine 15 mg Tablet
15 mg PO QPM Qty: 0
Trelegy Ellipta 100-62.5-25 mcg Blister With Device
1 inh INHALATION R DAILY
albuterol sulfate 90 mcg/actuation Hfa Aerosol Inhaler
1 inh INHALATION Q4HPRN PRN (Reason: sob)
prednisone 10 mg Tablet
See Rx Instructions .ROUTE .COMPLEX Qty: 30 0RF
Rx Instructions:
Take By Mouth:
40 mg daily x3 days, 30 mg daily x3 days,
20 mg daily x3 days, 10 mg daily x3 days.
Referrals:
NONE,* [Family Provider] -
Interventions
Interventions:
*Risk Screen - Suicide Last Done: 01/04/25 14:24
*General Assessment Last Done: 01/04/25 14:24
*Neglect/Abuse Screening Last Done: 01/04/25 14:24
*ED- Fall Risk Assessment Last Done: 01/04/25 14:24
*ED COVID-19 Vaccine History Last Done: 01/04/25 15:11
ED- Cardiac Assessment Last Done: 01/04/25 14:45
ED- Pulmonary Assessment Last Done: 01/04/25 14:45
Discharge Date and Time
Print Language: ESTONIAN
[2025-01-04 14:59] LABS: COVID-19 Antigen Negative (Negative)
[2025-01-04 15:04] LABS: NT-proBNP 932 pg/ml; Troponin I 0.014 ng/ml
[2025-01-04 15:05] LABS: ALT (SGPT) 30 U/L (0-35); AST (SGOT) 26 U/L (14-36); Albumin 3.3 g/dl (3.5-5.0); Alkaline Phosphatase 111 U/L (38-126); Blood Urea Nitrogen 18 mg/dl (7-17); Calcium 8.7 mg/dl (8.4-10.2); Carbon Dioxide 27 mmol/L (22-30); Chloride 105 mmol/L (98-107); Estimated Creatinine Clearance 61 ml/min; Glucose 240 mg/dl (70-99); Potassium 3.2 mmol/L (3.5-5.1); Sodium 142 mmol/L (135-145); Total Bilirubin 0.6 mg/dl (0.2-1.3); eGFR > 60.00
[2025-01-04] MEDS: DUONEB 3 ML INH ×2 (15:09→20:21)
--- NOTE | 2025-01-04 17:17 | HPS.HSE ---
Addendum entered and electronically signed by Sami Harvey MD 01/04/25 19:17:
Remains sob with very congested productive cough since time of dc on 12/28/24 and has become progressively worse during that time frame
Pt seen independently and agree with PA note
Lungs holoexpiratory wheeze, E>>I, diffuse sonorous rhonchi
CV reg
Ext chronic stasis dermatitis
Imp: active asthmatic bronchitis, concern for PNA
pt became encephalopathic from steroids during last hospitalization
osteoporosis/osteoarthritis
P:resume steroids at lower dose, uncertain if she will respond
sputum for C&S
empiric abx
mininebs
CT scan of chest
pulm consult
Original Note:
Family Physician
-
Family Physician: * NONE
Chief Complaint
-
Hypoxia
History of Present Illness
Patient is an 89 y/o female past medical history of atrial fibrillation, hypertension, COPD and recent hospitalization for hypoxia and acute COPD exacerbation who presents with recurrent hypoxia. Patient reports her visiting nurse saw her earlier
today and referred her to the emergency department for low oxygen levels. Patient denies increased shortness of breath. She does endorse moist cough which is noted during my evaluation. She denies fevers, sweats or chills. She denies chest pain
or palpitations.
Medical History
Past Medical History
Past Medical History: Reports Other
Additional Past Medical History:
Paroxysmal Atrial Fibrillation
Essential Hypertension
Hyperlipidemia
COPD
Depression
Past Surgical History: Reports Other
Additional Past Surgical History:
Bilateral HUGO
Appendectomy
Cataracts
Social History
Tobacco: Former Smoker (Quit in her late 70s)
Alcohol: None
Drug: None
Family History
Family History: Not pertinent
Allergies / Home Medications
Allergies reflects when Allergies were last updated in [facility].
Home Medications with original date entered in [facility]
Allergy/Medication List:
Allergies
Allergy/AdvReac Type Severity Reaction Status Date / Time
animal dander Allergy Unknown Verified 01/04/25 14:32
morphine Allergy nausea and Verified 01/04/25 14:32
vomiting
peanut Allergy Unknown Verified 01/04/25 14:32
prednisone AdvReac Toxic Verified 01/04/25 14:32
metabolic
encephalopathy
Home Medications
azelastine 137 mcg (0.1 %) nasal spray 1 spray intranasal BID Allergies 02/02/22
montelukast 10 mg tablet 10 mg PO QPMPRN PRN ALLERGIES 02/02/22
rosuvastatin 5 mg tablet 5 mg PO QPM High cholesterol 02/02/22
vitamins A,C,M-rcbk-zwcdab 4,296 mcg-226 mg-90 mg capsule (PreserVision AREDS) 1 cap PO BID Supplement 02/02/22
apixaban 5 mg tablet (Eliquis) 5 mg PO BID Blood clot prevention/tx 02/27/22
diltiazem HCl 180 mg capsule,extended release 24 hr 180 mg PO QPM Blood pressure 02/27/22
lisinopril 5 mg tablet 5 mg PO DAILY Blood pressure 02/27/22
mirtazapine 15 mg tablet 15 mg PO QPM Depression ##0 03/04/22
fluticasone fur. 100 mcg-umeclid 62.5 mcg-vilant 25 mcg inhalat.powder (Trelegy Ellipta) 1 inh inhalation R DAILY Diabetes 09/28/24
albuterol sulfate 90 mcg/actuation aerosol inhaler 1 inh inhalation Q4HPRN PRN sob 12/23/24
prednisone 10 mg tablet See Rx Instructions .Route .COMPLEX #30 tabs 12/28/24
Review of Systems
-
A 12 point ROS was completed and negative except as noted: Yes
Constitutional: Denies Fever
Respiratory: Reports Cough and Trouble Breathing
Cardiac: Denies Chest Pain
Physical Exam
Vital Signs
Vital Signs
Temp Pulse Resp BP Pulse Ox
97.7 F 83 19 104/59 96
01/04/25 14:24 01/04/25 16:30 01/04/25 16:30 01/04/25 16:00 01/04/25 16:30
Physical Exam
General: Comfortable and Conversant
HEENT: Anicteric, Moist mucous membranes and Oxygen (Nasal Cannula)
Respiratory: Wheezes (Diffuse) and Rales (Right)
Cardiac: S1/S2 and Regular Rhythm
GI: Soft and Non Tender
Rectal: Deferred by Provider
Musculoskeletal: No Clubbing, No Cyanosis and No Edema
Skin: Warm and Dry
Neuro: Awake, Alert, Oriented and Nonfocal/grossly intact
Psych: Calm
Laboratory Results
-
01/04/25 14:28
01/04/25 14:28
Laboratory Results
Total Bilirubin 0.6 mg/dl (0.2-1.3) 01/04/25 14:28
AST 26 U/L (14-36) 01/04/25 14:28
ALT 30 U/L (0-35) 01/04/25 14:28
Alkaline Phosphatase 111 U/L (38-126) 01/04/25 14:28
Troponin I 0.014 ng/ml 01/04/25 14:28
Data Reviewed
-
Diagnostic Radiology: Report Reviewed by me
Lab Data: Labs Reviewed by me
Old Records: Reviewed
Impression/Plan
-
Acute Hypoxic Respiratory Insufficiency secondary to Recurrent Acute COPD Exacerbation
-Continue supplemental oxygen
Recurrent Acute COPD Exacerbation
-Consult Pulmonary
-Check Chest CT due to recurrent nature of symptoms
-Check Sputum Culture
-Start ceftriaxone and azithromycin
-Continue Pulmicort Neb
-Continue DuoNeb QID and PRN
-Continue Decadron 2mg q8h - Attempt to limit steroids due to prior history of steroid induced delirium
Paroxysmal Atrial Fibrillation
-Continue Eliquis for anticoagulation
-Continue diltiazem for rate control
Essential Hypertension
-Continue lisinopril with hold parameters
Hyperlipidemia
-Continue rosuvastatin
Depression
-Continue mirtazapine
DVT proph: Eliquis
Code Status: DNR per patient at time of admission
--- NOTE | 2025-01-04 19:28 | PHANOTE ---
01/04/25: Roxie and Shannan (daughters) state the patient has not been compliant with her night time medications including Mirtazapine 15 mg HS, the second dose of Eliquis, second dose of Preservision.
[2025-01-04] MEDS: OCUVITE SOFTGEL 1 CAP PO (20:08)
[2025-01-04] MEDS: CARDIZEM CD 180 MG PO (20:09)
[2025-01-04] MEDS: MUCINEX 600 MG PO (20:09)
[2025-01-04] MEDS: REMERON 15 MG PO (20:09)
[2025-01-04] MEDS: CRESTOR 5 MG PO (20:09)
[2025-01-04] MEDS: ELIQUIS 5 MG PO (20:09)
[2025-01-04] MEDS: DECADRON 2 MG IV (20:09)
[2025-01-04] MEDS: STERILE WATER FOR INJECTION 10 ML IV (20:10)
[2025-01-04] MEDS: ROCEPHIN 1000 MG IV (20:10)
[2025-01-04] MEDS: PULMICORT 0.5 MG INH (20:21)
[2025-01-05] MEDS: DECADRON 2 MG IV (05:02)
[2025-01-05 05:58] LABS: Hematocrit 34.3 % (37.0-47.0); Mean Corp Hgb Conc. 32.1 g/dL (33.0-37.0); Mean Corpuscular Hgb 27.7 pg (27.0-31.0); Mean Corpuscular Volume 86.4 fL (81.0-99.0); Mean Platelet Volume 8.9 fL (7.4-10.4); Platelet Count 223 10^3/uL (130-400); Red Blood Cell Count 3.97 10^6/uL (4.20-5.40); Red Cell Dist. Width 15.7 % (11.5-14.5)
[2025-01-05 06:00] VITALS: BMI 26.5
[2025-01-05 06:26] LABS: Blood Urea Nitrogen 23 mg/dl (7-17); Calcium 8.6 mg/dl (8.4-10.2); Carbon Dioxide 24 mmol/L (22-30); Chloride 107 mmol/L (98-107); Estimated Creatinine Clearance 60 ml/min; Glucose 165 mg/dl (70-99); Magnesium 1.8 mg/dl (1.6-2.3); Potassium 3.9 mmol/L (3.5-5.1); Sodium 141 mmol/L (135-145); eGFR > 60.00
[2025-01-05 07:05] VITALS: BP 122/61
[2025-01-05] MEDS: DUONEB 3 ML INH ×4 (07:09→20:10)
[2025-01-05] MEDS: PULMICORT 0.5 MG INH ×2 (07:09→20:10)
--- NOTE | 2025-01-05 07:36 | PTCARENOTE ---
Patient arrived on unit @1940 via stretcher from ED, stand and pivot at bedside. Patient AAOX3, forgetful at times, was not able to give information on completing med rec. Patient stated 'my daughter fills my box for me and I just take them'.
Patient's vitals WNL, RAMÍREZ. Patient's skin assessment completed, oriented to unit, call perkins within reach.
[2025-01-05] MEDS: ELIQUIS 5 MG PO ×2 (08:41→20:43)
[2025-01-05] MEDS: ZESTRIL 5 MG PO (08:41)
[2025-01-05] MEDS: MUCINEX 600 MG PO ×2 (08:41→20:43)
[2025-01-05] MEDS: OCUVITE SOFTGEL 1 CAP PO (08:41)
[2025-01-05] MEDS: ZITHROMAX 500 MG PO (08:41)
--- NOTE | 2025-01-05 09:09 | CON.PUL ---
Consultation
Consultation Request
Date/Time Consultation Requested: 01/04/2025
Date/Time Consultation Performed: 01/05/2025
Requesting Provider: Sami Harvey
Performing Provider: Maurizio Sumner
Reason for Consultation: Shortness of breath
Medical History
-
Chief Complaint: Shortness of breath
History of Present Illness:
Patient is a very pleasant 89-year-old female with known history of underlying severe COPD with emphysema as well as recent hospitalization for COPD exacerbation. Patient states that after discharge she was reportedly at her baseline. On
evaluation by visiting nurse, patient was noted to be hypoxic as well as had diffuse bilateral wheezing. This prompted return to the emergency room. Patient had a CT scan performed which was suggestive of right middle lobe collapse. Patient was
started on inhaled bronchodilators, steroids, antibiotics and pulmonary consultation was requested for further input.
Past Medical History: Reports Other
Additional Past Medical History:
Paroxysmal Atrial Fibrillation
Essential Hypertension
Hyperlipidemia
COPD
Depression
Past Surgical History: Reports Other
Additional Past Surgical History:
Bilateral HUGO
Appendectomy
Cataracts
Social History
Tobacco: Former Smoker (Quit in her late 70s) She has 50 + pack year smoking history
Alcohol: None
Drug: None
Family History
Family History: Not pertinent
Allergies / Home Medications
Allergies
Allergy/AdvReac Type Severity Reaction Status Date / Time
animal dander Allergy Unknown Verified 01/04/25 14:32
morphine Allergy nausea and Verified 01/04/25 14:32
vomiting
peanut Allergy Unknown Verified 01/04/25 14:32
prednisone AdvReac Toxic Verified 01/04/25 14:32
metabolic
encephalopathy
Home Medications
�Medication �Instructions �Recorded �Confirmed �Last Taken �Type
montelukast 10 mg tablet 10 mg PO DAILY Lung/Breathing 02/02/22 01/04/25 Unknown History
Issues
apixaban 5 mg tablet (Eliquis) 5 mg PO DAILY Blood clot 02/27/22 01/04/25 09/27/24 History
prevention/tx
diltiazem HCl 180 mg 180 mg PO DAILY Blood pressure 02/27/22 01/04/25 09/27/24 History
capsule,extended release 24 hr
lisinopril 5 mg tablet 5 mg PO DAILY Blood pressure 02/27/22 01/04/25 09/27/24 History
fluticasone fur. 100 mcg-umeclid 1 inh inhalation R DAILY Diabetes 09/28/24 01/04/25 09/27/24 History
62.5 mcg-vilant 25 mcg
inhalat.powder (Trelegy Ellipta)
albuterol sulfate 90 mcg/actuation 1 inh inhalation Q4HPRN PRN sob 12/23/24 01/04/25 Unknown History
aerosol inhaler
azelastine 137 mcg (0.1 %) nasal 1 spray intranasal DAILY Congestion 01/04/25 01/04/25 Unknown History
spray
cholecalciferol (vitamin D3) 50 50 mcg PO DAILY Supplement 01/04/25 01/04/25 Unknown History
mcg (2,000 unit) capsule (Vitamin
D3)
vitamins A,C,J-cvyc-amzrcx 2,148 2 tab PO DAILY Supplement 01/04/25 01/04/25 Unknown History
mcg-113 mg-45 mg-17.4 mg tablet
(PreserVision AREDS)
Review of Systems
-
Hematologic/Lymphatic: Other (All 14 systems reviewed and negative except as stated above in the history of present illness.)
Vitals / Labs / Diagnostic Testing
Vital Signs
Temp Pulse Resp BP Pulse Ox
97.4 F 88 18 122/61 98
01/05/25 07:05 01/05/25 07:12 01/05/25 07:12 01/05/25 07:05 01/05/25 07:12
Lab Data
01/05/25 05:14
01/05/25 05:14
Microbiology
01/04/25 14:28 Nasal Swab Influenza Types A & B (ANA ROSA) - Final
Negative for Influenza A & B, NAAT
Negative results must be combined with clinical observations
and patient history.
Nucleic Acid Amplification test (NAAT)performed on the
[employer] platform.
Diagnostic Testing:
Physical Exam
-
HEENT: Normocephalic
Cardiovascular: Regular Rhythm
Respiratory: Wheeze (Mild end expiratory wheezing bilaterally) and Non-Labored Respirations
GI: Soft and Non Distended
Neurology: Awake and Alert
Skin: Warm
General: Comfortable
Assessment
-
#1. Acute on chronic COPD exacerbation. Suspect her symptoms are more related to RML collapse.
-Continue Duoneb qid
-Continue Budesonide bid
-Switch sterids to PO for 4 more days
-At d/c can resume Trelegy and PRN Albuterol. Likely will need home O2 at discharge
#2. Right middle lobe collapse:
-Likely related to mucous plug but it also could be related to an endobronchial tumor or cancer
-Start chest percussion therapy right middle lobe
-Continue DuoNeb and budesonide as scheduled
-Add 3%, hypertonic saline nebs twice a day and continue Mucinex
-Patient is 89 and has underlying severe COPD which puts her at risk of respiratory failure and need for intubation and mechanical ventilation with bronchoscopy. I discussed with the patient as well as her daughter regarding risks and benefits of
bronchoscopy. Patient is very clear in her wishes that she does not want to proceed with any procedures. She understands the risk of an endobronchial tumor or cancer and does not want to pursue any further workup. Patient states that even if she
is diagnosed with cancer, she would not pursue with any treatment. I think it is reasonable and we will continue conservative measures for now
#3. Multifocal pneumonia. WBC normal, patient is afebrile. Mucous plugs are also in differentials.
-Continue Rocephin and Azithromycin. 5 days therapy should suffice
Other medical issues:
-Atrial fibrillation on anticoagulation
-HTN, HLD
Updated patient's daughter, Shannan.
Total time spent on this consultation/encounter __65__ minutes which includes review of history, physical exam, medications, laboratory data, personal review of imaging, extensive review of outpatient records, discussion with care team and
respiratory therapy.
Data:
CT Chest 01/2025: There is complete opacification of the right middle lobe bronchus with associated right middle lobe collapse. Findings may be secondary to endobronchial lesion or mucous plugging. Consider bronchoscopy for further evaluation.
Moderate apical predominant emphysematous changes with scattered nodular consolidations and groundglass opacities involving the right upper and bilateral lower lobes which likely represents multifocal pneumonia. There is additional bronchial wall
thickening and mucoid impaction, likely endobronchial infection. Recommend follow-up CT chest to ensure resolution.
The right hilum is asymmetrically prominent which may be vascular in nature or represent an enlarged lymph node.
ECHO 02/2022: Normal left ventricular size, wall thickness and systolic function. LV ejection fraction is 75%.
Mild to moderate mitral stenosis. Mild mitral regurgitation. Mild aortic stenosis.
[2025-01-05] MEDS: DECADRON 4 MG PO (09:34)
[2025-01-05] MEDS: SODIUM CHLORIDE 3% FOR INHALATION 1 VIAL INH ×2 (11:17→20:10)
[2025-01-05 12:35] VITALS: BP 138/61; PULSE 81; O2SAT 97
[2025-01-05 12:36] VITALS: BP 138/61; PULSE 81; O2SAT 97
--- NOTE | 2025-01-05 14:48 | W.PN.HOSP.TC ---
Today's Communication/Plan
-
continue abx, steroids
Assessment / Plan
Assessment / Plan
Acute Hypoxic Respiratory Insufficiency secondary to Recurrent Acute COPD Exacerbation
-Continue supplemental oxygen, low dose steroids (now on Decadron 4 mg po daily)
Recurrent Acute COPD Exacerbation
-Consult Pulmonary, input appreciated
-Check Chest CT : There is complete opacification of the right middle lobe bronchus with associated right middle lobe collapse. Findings may be secondary to endobronchial lesion or mucous plugging. Consider bronchoscopy for further evaluation.
Moderate apical predominant emphysematous changes with scattered nodular consolidations and groundglass opacities involving the right upper and bilateral lower lobes which likely represents multifocal pneumonia. There is additional bronchial wall
thickening and mucoid impaction, likely endobronchial infection. Recommend follow-up CT chest to ensure resolution.
The right hilum is asymmetrically prominent which may be vascular in nature or represent an enlarged lymph node.
-Check Sputum Culture
-Started ceftriaxone and azithromycin
-Continue Pulmicort Neb
-Continue DuoNeb QID and PRN
Paroxysmal Atrial Fibrillation
-Continue Eliquis for anticoagulation
-Continue diltiazem for rate control
Essential Hypertension
-Continue lisinopril with hold parameters
Hyperlipidemia
-Continue rosuvastatin
Depression
-Continue mirtazapine
DVT proph: Eliquis
Code Status: DNR per patient at time of admission
Pt told both me and pulm that she does not want further evaluation of the possible chest mass, does not believe she would survive treatment if it was a cancer
This was reviewed by phone with her dgt, Reyes who is in agreement
Discussed with Reyes that pt really wants to return to her facility. Would suggest home health aides and should contact to help coordinate. If pt decides that she does not wish to return to the hospital if she worsens would then transition,
at that time, to Hospice and should discuss with facility whether she could stay there on Hospice
Anticipated Discharge: > 48 hours
Subjective/Interval History
-
Date of Service: January 05, 2025
Feels a little better today
Objective Data
-
Labs:
Laboratory Results
01/05/25
05:14
WBC 10.0
Hgb 11.0 L
Hct 34.3 L
Plt Count 223
Sodium 141
Potassium 3.9
Chloride 107
Carbon Dioxide 24
BUN 23 H
Creatinine 0.6
Glucose 165 H
Calcium 8.6
Vital Signs:
Vital Signs
Temp Pulse Resp BP Pulse Ox
97.4 F 86 18 122/61 93
01/05/25 07:05 01/05/25 11:22 01/05/25 11:22 01/05/25 07:05 01/05/25 11:22
I&O
01/04/25 01/05/25 01/06/25
06:59 06:59 06:59
Intake Total 480 / 480
Balance 480 / 480
Review of Systems
-
History Source: Patient and Family (reviewed with anabelle Chambers)
Constitutional: Denies Fever
Respiratory: Reports Cough and Trouble Breathing
Cardiac: Reports No Symptoms
Abdomen/GI: Reports No Symptoms
Physical Exam
-
General: Well Developed, Well Nourished and No Apparent Distress
HEENT: Normocephalic, Atraumatic and Moist Mucous Membranes
Respiratory: Rales (coarse holoexpiratory wheeze, improved air movement) and Rhonchi (diffuse sonorous rhonchi); Negative Wheezes
Cardiac: Regular Rhythm and S1/S2
GI: Soft, Nontender, Nondistended and Normal Bowel Sounds
Neuro: Awake, Alert and Oriented
--- NOTE | 2025-01-05 14:57 | CM ---
CM reviewed chart, patient recently discharged
--- NOTE | 2025-01-05 14:58 | CM ---
CM reviewed chart, patient recently discharged 12/28/24. Patient resides at [facility], current with [facility]. Patient ambulates with a cane or rolling walker, does not wear home O2. Patients family assist with groceries, driving, and medication
management. Patient PCP [facility], pharmacy [facility] [place]. Per PT/OT, recommending SNF, will discuss with patient. CM will continue to follow for all discharge planning needs.
Plan; will discuss SNF recommendation vs return to [facility] with [facility], watch for home O2 needs.
[2025-01-05 15:05] VITALS: BP 165/79
--- NOTE | 2025-01-05 17:04 | CM ---
Alert awake forgetful patient who lives at [facility] . She is independent in all activities of daily living.She uses a cane walker.She has 2 supportive dgts.Pt had recent admission to .On oxygen 2 liters NC POx 98%.
No hx of VN or SNF.
Pharmacy [facility]
PCP [facility]
PLAN Probable SNF PT OT needs
[2025-01-05] MEDS: CARDIZEM CD 180 MG PO (17:51)
[2025-01-05] MEDS: CRESTOR 5 MG PO (17:51)
[2025-01-05] MEDS: REMERON 15 MG PO (17:51)
[2025-01-05] MEDS: STERILE WATER FOR INJECTION 10 ML IV (20:44)
[2025-01-05] MEDS: ROCEPHIN 1000 MG IV (20:45)
[2025-01-05] MEDS: OCUVITE SOFTGEL PO (21:29)
[2025-01-05 23:40] VITALS: BP 127/52
[2025-01-06 06:00] VITALS: BMI 27.4
[2025-01-06] MEDS: PULMICORT 0.5 MG INH ×2 (07:31→19:34)
[2025-01-06] MEDS: DUONEB 3 ML INH ×4 (07:31→19:34)
[2025-01-06] MEDS: SODIUM CHLORIDE 3% FOR INHALATION 1 VIAL INH ×2 (07:34→19:34)
[2025-01-06 08:00] VITALS: BP 109/66
[2025-01-06] MEDS: OCUVITE SOFTGEL 1 CAP PO ×2 (08:55→22:10)
[2025-01-06] MEDS: ZITHROMAX 500 MG PO (08:55)
[2025-01-06] MEDS: MUCINEX 600 MG PO ×2 (08:55→22:10)
[2025-01-06] MEDS: ZESTRIL PO (08:56)
[2025-01-06] MEDS: DECADRON 4 MG PO (08:56)
[2025-01-06] MEDS: ELIQUIS 5 MG PO ×2 (08:56→22:09)
--- NOTE | 2025-01-06 12:53 | W.PN.HOSP.TC ---
Today's Communication/Plan
-
continue abx for 5 days
will discuss with pulm pros and cons of continuation of steroids
Assessment / Plan
Assessment / Plan
Acute Hypoxic Respiratory Insufficiency secondary to Recurrent Acute COPD Exacerbation
much better with SaO2 96% on 2 L/M
-Continue supplemental oxygen, low dose steroids (now on Decadron 4 mg po daily)
Continue abx for 5 days, but consider continuation of low dose steroids to provide symptom relief
Recurrent Acute COPD Exacerbation
-Consult Pulmonary, input appreciated
-Check Chest CT : There is complete opacification of the right middle lobe bronchus with associated right middle lobe collapse. Findings may be secondary to endobronchial lesion or mucous plugging. Consider bronchoscopy for further evaluation.
Moderate apical predominant emphysematous changes with scattered nodular consolidations and groundglass opacities involving the right upper and bilateral lower lobes which likely represents multifocal pneumonia. There is additional bronchial wall
thickening and mucoid impaction, likely endobronchial infection. Recommend follow-up CT chest to ensure resolution.
The right hilum is asymmetrically prominent which may be vascular in nature or represent an enlarged lymph node.
-Check Sputum Culture
-Started ceftriaxone and azithromycin
-Continue Pulmicort Neb
-Continue DuoNeb QID and PRN
Paroxysmal Atrial Fibrillation
-Continue Eliquis for anticoagulation
-Continue diltiazem for rate control
Essential Hypertension
-Continue lisinopril with hold parameters
Hyperlipidemia
-Continue rosuvastatin
Depression
-Continue mirtazapine
DVT proph: Eliquis
Code Status: DNR per patient at time of admission
Pt told both me and pulm that she does not want further evaluation of the possible chest mass, does not believe she would survive treatment if it was a cancer
This was reviewed by phone with her dgt, Reyes who is in agreement
Discussed with Reyes that pt really wants to return to her facility. Would suggest home health aides and should contact to help coordinate. If pt decides that she does not wish to return to the hospital if she worsens would then transition,
at that time, to Hospice and should discuss with facility whether she could stay there on Hospice
CM notes she lives at [facility], would it be possible for her to return there with home health aides? This would be her preference
Anticipated Discharge: > 48 hours
Subjective/Interval History
-
Date of Service: January 06, 2025
In good spirits, definitely feeling better, but not at baseline
Objective Data
-
Vital Signs:
Vital Signs
Temp Pulse Resp BP Pulse Ox
97.6 F 91 20 109/66 96
01/06/25 08:00 01/06/25 11:31 01/06/25 11:31 01/06/25 08:56 01/06/25 11:31
I&O
01/05/25 01/06/25 01/07/25
06:59 06:59 06:59
Intake Total 480 / 480 1320 / 1320
Output Total 120 / 120
Balance 480 / 480 1200 / 1200
Review of Systems
-
History Source: Patient and Family (reviewed with anabelle Chambers)
Constitutional: Denies Fever
Respiratory: Reports Cough and Trouble Breathing
Cardiac: Reports No Symptoms
Abdomen/GI: Reports No Symptoms
Genitourinary: Reports No Symptoms
Physical Exam
-
General: Well Developed, Well Nourished and No Apparent Distress
HEENT: Normocephalic, Atraumatic and Moist Mucous Membranes
Respiratory: Rhonchi (markedly reduced); Negative Wheezes (essentially resolved)
Cardiac: Regular Rhythm and S1/S2
GI: Soft, Nontender, Nondistended and Normal Bowel Sounds
Neuro: Awake, Alert and Oriented
[2025-01-06 16:00] VITALS: BP 149/81
--- NOTE | 2025-01-06 16:52 | W.PN.PUL3 ---
Today's Communication / Plan
-
- Continue airway clearance with 3% saline and albuterol
-Discharge planning
Assessment
-
Patient is a very pleasant 89-year-old female with known history of underlying severe COPD with emphysema as well as recent hospitalization for COPD exacerbation. Patient states that after discharge she was reportedly at her baseline. On
evaluation by visiting nurse, patient was noted to be hypoxic as well as had diffuse bilateral wheezing. This prompted return to the emergency room. Patient had a CT scan performed which was suggestive of right middle lobe collapse. Patient was
started on inhaled bronchodilators, steroids, antibiotics and pulmonary consultation was requested for further input.
#1. Acute on chronic COPD exacerbation. Suspect her symptoms are more related to RML collapse.
-Continue Duoneb qid
-Continue Budesonide bid
-Switched sterids to PO for 4 more days
-At d/c can resume Trelegy and PRN Albuterol. Likely will need home O2 at discharge
#2. Right middle lobe collapse:
-Likely related to mucous plug but it also could be related to an endobronchial tumor or cancer
-Start chest percussion therapy right middle lobe
-Continue DuoNeb and budesonide as scheduled
-Continue 3%, hypertonic saline nebs twice a day and continue Mucinex
-Patient is 89 and has underlying severe COPD which puts her at risk of respiratory failure and need for intubation and mechanical ventilation with bronchoscopy. I discussed with the patient as well as her daughter regarding risks and benefits of
bronchoscopy. Patient is very clear in her wishes that she does not want to proceed with any procedures. She understands the risk of an endobronchial tumor or cancer and does not want to pursue any further workup. Patient states that even if she
is diagnosed with cancer, she would not pursue with any treatment. I think it is reasonable and we will continue conservative measures for now
#3. Multifocal pneumonia. WBC normal, patient is afebrile. Mucous plugs are also in differentials.
-Continue Rocephin and Azithromycin. 5 days therapy should suffice
Other medical issues:
-Atrial fibrillation on anticoagulation
-HTN, HLD
Updated patient's daughter, Roxie at bedside
Total time spent on this consultation/encounter __35__ minutes which includes review of history, physical exam, medications, laboratory data, personal review of imaging, extensive review of outpatient records, discussion with care team and
respiratory therapy.
Data:
CT Chest 01/2025: There is complete opacification of the right middle lobe bronchus with associated right middle lobe collapse. Findings may be secondary to endobronchial lesion or mucous plugging. Consider bronchoscopy for further evaluation.
Moderate apical predominant emphysematous changes with scattered nodular consolidations and groundglass opacities involving the right upper and bilateral lower lobes which likely represents multifocal pneumonia. There is additional bronchial wall
thickening and mucoid impaction, likely endobronchial infection. Recommend follow-up CT chest to ensure resolution.
The right hilum is asymmetrically prominent which may be vascular in nature or represent an enlarged lymph node.
ECHO 02/2022: Normal left ventricular size, wall thickness and systolic function. LV ejection fraction is 75%.
Mild to moderate mitral stenosis. Mild mitral regurgitation. Mild aortic stenosis.
Subjective Data
-
Date of Service:
Date of Service: January 06, 2025
Subjective:
Sitting in chair, clinically improving
Review of Systems
Genitourinary: Other (All 14 systems reviewed and negative except as stated above in the history of present illness.)
Objective Data
Data Reviewed
Vital Signs / I&O / Oxygen:
Vital Signs
Temp Pulse Resp BP Pulse Ox
97.6 F 89 20 109/66 97
01/06/25 08:00 01/06/25 15:19 01/06/25 15:19 01/06/25 08:56 01/06/25 15:19
Intake and Output
01/05/25 01/06/25 01/07/25
06:59 06:59 06:59
Intake Total 480 / 480 1320 / 1320
Output Total 120 / 120
Balance 480 / 480 1200 / 1200
SaO2 97
Nasal Cannula flow liters per 2
minute
Physical Exam
General: Comfortable
HEENT: Normocephalic
Cardiovascular: S1-S2
Respiratory: Clear and Other (No wheezing this morning)
GI: Non Distended
Neurology: Awake and Alert
Skin: Warm
Labs/Micro/Reports
Lab Data
01/05/25 05:14
01/05/25 05:14
Microbiology
01/05/25 06:04 Nose MRSA Screen - Final
No Methicillin Resistant Staphylococcus aureus isolated.
01/04/25 14:28 Nasal Swab Influenza Types A & B (ANA ROSA) - Final
Negative for Influenza A & B, NAAT
Negative results must be combined with clinical observations
and patient history.
Nucleic Acid Amplification test (NAAT)performed on the
[employer] platform.
[2025-01-06] MEDS: CARDIZEM CD 180 MG PO (17:28)
[2025-01-06] MEDS: CRESTOR 5 MG PO (17:28)
[2025-01-06] MEDS: REMERON 15 MG PO (17:28)
[2025-01-06 21:00] VITALS: BMI 26.5
[2025-01-06] MEDS: STERILE WATER FOR INJECTION 10 ML IV (22:10)
[2025-01-06] MEDS: ROCEPHIN 1000 MG IV (22:10)
[2025-01-06 23:46] VITALS: BP 138/87
[2025-01-07 00:39] VITALS: BP 138/87
[2025-01-07 07:00] VITALS: BP 134/78
[2025-01-07] MEDS: SODIUM CHLORIDE 3% FOR INHALATION 1 VIAL INH ×2 (07:31→19:35)
[2025-01-07] MEDS: PULMICORT 0.5 MG INH ×2 (07:31→19:35)
[2025-01-07] MEDS: DUONEB 3 ML INH ×4 (07:31→19:35)
[2025-01-07] MEDS: MUCINEX 600 MG PO ×2 (08:31→20:46)
[2025-01-07] MEDS: OCUVITE SOFTGEL 1 CAP PO ×2 (08:32→20:46)
[2025-01-07] MEDS: ZITHROMAX 500 MG PO (08:32)
[2025-01-07] MEDS: ELIQUIS 5 MG PO ×2 (08:32→20:47)
[2025-01-07] MEDS: ZESTRIL 5 MG PO (08:32)
[2025-01-07] MEDS: DECADRON 4 MG PO (08:32)
--- NOTE | 2025-01-07 14:22 | CM ---
CM following re: d/c planning.
CM discussed SNF recs with pt, to which she is amenable.
She requests CM to speak with daughter Shannan.
CM spoke with Shannan, choices provided are [facility], [facility], [facility].
Refs sent.
CM continuing to follow medical course as well.
[2025-01-07 15:00] VITALS: BP 146/56
--- NOTE | 2025-01-07 15:01 | W.PN.HOSP.TC ---
Today's Communication/Plan
-
continue current Tx
Assessment / Plan
Assessment / Plan
Acute Hypoxic Respiratory Insufficiency secondary to Recurrent Acute COPD Exacerbation
much better with SaO2 96% on 2 L/M
-Continue supplemental oxygen, low dose steroids (now on Decadron 4 mg po daily)
Continue abx for 5 days, but consider continuation of low dose steroids to provide symptom relief
Recurrent Acute COPD Exacerbation
-Consult Pulmonary, input appreciated
Pt relayed to pulm and me as well as nursing that she does not want any intervention. Whether it is mucous plugging or tumor, she just wants symptom control and nothing further
-Check Chest CT : There is complete opacification of the right middle lobe bronchus with associated right middle lobe collapse. Findings may be secondary to endobronchial lesion or mucous plugging. Consider bronchoscopy for further evaluation.
Moderate apical predominant emphysematous changes with scattered nodular consolidations and groundglass opacities involving the right upper and bilateral lower lobes which likely represents multifocal pneumonia. There is additional bronchial wall
thickening and mucoid impaction, likely endobronchial infection. Recommend follow-up CT chest to ensure resolution.
The right hilum is asymmetrically prominent which may be vascular in nature or represent an enlarged lymph node.
-Check Sputum Culture
-Started ceftriaxone and azithromycin
-Continue Pulmicort Neb
-Continue DuoNeb QID and PRN
Paroxysmal Atrial Fibrillation
-Continue Eliquis for anticoagulation
-Continue diltiazem for rate control
Essential Hypertension
-Continue lisinopril with hold parameters
Hyperlipidemia
-Continue rosuvastatin
Depression
-Continue mirtazapine
DVT proph: Eliquis
Code Status: DNR per patient at time of admission
Pt told both me and pulm that she does not want further evaluation of the possible chest mass, does not believe she would survive treatment if it was a cancer
This was reviewed by phone with her dgt, Reyes who is in agreement
Discussed with Reyes that pt really wants to return to her facility. Would suggest home health aides and should contact CM to help coordinate. If pt decides that she does not wish to return to the hospital if she worsens would then transition,
at that time, to Hospice and should discuss with facility whether she could stay there on Hospice. Continue abx for now with plan dc next 24-48 hrs
CM notes she lives at [facility], would it be possible for her to return there with home health aides? This would be her preference
Anticipated Discharge: 24 - 48 hours
Subjective/Interval History
-
Date of Service: January 07, 2025
Awake, alert
Objective Data
-
Vital Signs:
Vital Signs
Temp Pulse Resp BP Pulse Ox
97.0 F 70 16 134/78 95
01/07/25 07:00 01/07/25 11:22 01/07/25 11:22 01/07/25 08:32 01/07/25 07:36
I&O
01/06/25 01/07/25 01/08/25
06:59 06:59 06:59
Intake Total 1320 / 1320 1420 / 1420
Output Total 120 / 120
Balance 1200 / 1200 1420 / 1420
Review of Systems
-
History Source: Patient and Coordinated Provider
Constitutional: Denies Fever
Respiratory: Reports Cough and Trouble Breathing
Cardiac: Reports No Symptoms
Abdomen/GI: Reports No Symptoms
Genitourinary: Reports No Symptoms
Physical Exam
-
General: Well Developed, Well Nourished and No Apparent Distress
HEENT: Normocephalic, Atraumatic and Moist Mucous Membranes
Respiratory: Wheezes (markedly improved air movement with holoexpiratory wheeze); Negative Rhonchi (resolved)
Cardiac: Regular Rhythm and S1/S2
GI: Soft, Nontender, Nondistended and Normal Bowel Sounds
Neuro: Awake, Alert and Oriented
--- NOTE | 2025-01-07 15:36 | W.PN.PUL3 ---
Today's Communication / Plan
-
- Continue hypertonic saline twice daily
- Discharge planning
Assessment
-
Patient is a very pleasant 89-year-old female with known history of underlying severe COPD with emphysema as well as recent hospitalization for COPD exacerbation. Patient states that after discharge she was reportedly at her baseline. On
evaluation by visiting nurse, patient was noted to be hypoxic as well as had diffuse bilateral wheezing. This prompted return to the emergency room. Patient had a CT scan performed which was suggestive of right middle lobe collapse. Patient was
started on inhaled bronchodilators, steroids, antibiotics and pulmonary consultation was requested for further input.
#1. Acute on chronic COPD exacerbation. Suspect her symptoms are more related to RML collapse.
-Continue Duoneb qid
-Continue Budesonide bid
-Wheezing resolved, agree with stopping oral steroids
-At d/c can resume Trelegy and PRN Albuterol. Likely will need home O2 at discharge
#2. Right middle lobe collapse:
-Likely related to mucous plug but it also could be related to an endobronchial tumor or cancer
-Continue chest percussion therapy right middle lobe
-Continue DuoNeb and budesonide as scheduled
-Continue 3%, hypertonic saline nebs twice a day and continue Mucinex
-Patient is 89 and has underlying severe COPD which puts her at risk of respiratory failure and need for intubation and mechanical ventilation with bronchoscopy. I discussed with the patient as well as her daughter regarding risks and benefits of
bronchoscopy. Patient is very clear in her wishes that she does not want to proceed with any procedures. She understands the risk of an endobronchial tumor or cancer and does not want to pursue any further workup. Patient states that even if she
is diagnosed with cancer, she would not pursue with any treatment. I think it is reasonable and we will continue conservative measures for now
#3. Multifocal pneumonia. WBC normal, patient is afebrile. Mucous plugs are also in differentials.
-Continue Rocephin and Azithromycin. 5 days therapy should suffice
Other medical issues:
-Atrial fibrillation on anticoagulation
-HTN, HLD
Total time spent on this consultation/encounter __28__ minutes which includes review of history, physical exam, medications, laboratory data, personal review of imaging, extensive review of outpatient records, discussion with care team and
respiratory therapy.
Data:
CT Chest 01/2025: There is complete opacification of the right middle lobe bronchus with associated right middle lobe collapse. Findings may be secondary to endobronchial lesion or mucous plugging. Consider bronchoscopy for further evaluation.
Moderate apical predominant emphysematous changes with scattered nodular consolidations and groundglass opacities involving the right upper and bilateral lower lobes which likely represents multifocal pneumonia. There is additional bronchial wall
thickening and mucoid impaction, likely endobronchial infection. Recommend follow-up CT chest to ensure resolution.
The right hilum is asymmetrically prominent which may be vascular in nature or represent an enlarged lymph node.
ECHO 02/2022: Normal left ventricular size, wall thickness and systolic function. LV ejection fraction is 75%.
Mild to moderate mitral stenosis. Mild mitral regurgitation. Mild aortic stenosis.
Subjective Data
-
Date of Service:
Date of Service: January 07, 2025
Subjective:
Patient comfortably sitting in chair, in no acute distress, reports feeling better.
Review of Systems
Genitourinary: Other (All 14 systems reviewed and negative except as stated above in the history of present illness.)
Objective Data
Data Reviewed
Vital Signs / I&O / Oxygen:
Vital Signs
Temp Pulse Resp BP Pulse Ox
97.0 F 70 16 134/78 95
01/07/25 07:00 01/07/25 11:22 01/07/25 11:22 01/07/25 08:32 01/07/25 07:36
Intake and Output
01/06/25 01/07/25 01/08/25
06:59 06:59 06:59
Intake Total 1320 / 1320 1420 / 1420
Output Total 120 / 120
Balance 1200 / 1200 1420 / 1420
SaO2 95
Nasal Cannula flow liters per 2
minute
Physical Exam
General: Comfortable
HEENT: Normocephalic
Cardiovascular: S1-S2
Respiratory: Clear and Other (No wheezing this morning)
GI: Non Distended
Neurology: Awake and Alert
Skin: Warm
Labs/Micro/Reports
Lab Data
01/05/25 05:14
01/05/25 05:14
Microbiology
01/05/25 06:04 Nose MRSA Screen - Final
No Methicillin Resistant Staphylococcus aureus isolated.
01/04/25 14:28 Nasal Swab Influenza Types A & B (ANA ROSA) - Final
Negative for Influenza A & B, NAAT
Negative results must be combined with clinical observations
and patient history.
Nucleic Acid Amplification test (NAAT)performed on the
[employer] platform.
[2025-01-07] MEDS: REMERON 15 MG PO (17:20)
[2025-01-07] MEDS: CARDIZEM CD 180 MG PO (17:20)
[2025-01-07] MEDS: CRESTOR 5 MG PO (17:20)
[2025-01-07] MEDS: STERILE WATER FOR INJECTION 10 ML IV (20:47)
[2025-01-07] MEDS: ROCEPHIN 1000 MG IV (20:47)
[2025-01-07 23:45] VITALS: BP 130/78
[2025-01-08 05:54] LABS: Blood Urea Nitrogen 30 mg/dl (7-17); Calcium 9.8 mg/dl (8.4-10.2); Carbon Dioxide 29 mmol/L (22-30); Chloride 105 mmol/L (98-107); Estimated Creatinine Clearance 52 ml/min; Glucose 144 mg/dl (70-99); Potassium 4.5 mmol/L (3.5-5.1); Sodium 143 mmol/L (135-145); eGFR > 60.00
[2025-01-08 06:00] VITALS: BMI 27.5
[2025-01-08 06:45] LABS: % Basophils 0.3 % (0-2); % Immature Granulocytes 2.6 % (0-0.5); % Lymphocytes 6.3 % (20.5-51.1); % Monocytes 3.9 % (1.7-9.3); % Neutrophils 86.9 % (42.2-75.2); Absolute Basophils 0.1 10^3/uL (0-0.2); Absolute Immature Granulocytes 0.4 10^3/uL (0-0.05); Absolute Lymphocytes 0.9 10^3/uL (1.2-3.4); Absolute Monocytes 0.6 10^3/uL (0.1-0.6); Absolute Neutrophils 12.6 10^3/uL (1.4-6.5); Hemoglobin 12.6 g/dL (12.0-16.0); Mean Corp Hgb Conc. 30.7 g/dL (33.0-37.0); Mean Corpuscular Hgb 27.2 pg (27.0-31.0); Mean Corpuscular Volume 88.6 fL (81.0-99.0); Mean Platelet Volume 8.6 fL (7.4-10.4); Nucleated Red Blood Cells % 0 %; Platelet Count 343 10^3/uL (130-400); Red Blood Cell Count 4.63 10^6/uL (4.20-5.40); Red Cell Dist. Width 15.6 % (11.5-14.5); White Blood Cell Count 14.6 10^3/uL (4.8-10.8)
[2025-01-08] MEDS: DUONEB 3 ML INH ×4 (07:19→19:36)
[2025-01-08] MEDS: PULMICORT 0.5 MG INH ×2 (07:19→19:35)
[2025-01-08] MEDS: SODIUM CHLORIDE 3% FOR INHALATION 1 VIAL INH ×2 (07:19→19:40)
[2025-01-08 07:52] VITALS: BP 141/69
[2025-01-08] MEDS: OCUVITE SOFTGEL 1 CAP PO ×2 (08:22→20:07)
[2025-01-08] MEDS: MUCINEX 600 MG PO ×2 (08:24→20:07)
[2025-01-08] MEDS: DECADRON 4 MG PO (08:24)
[2025-01-08] MEDS: ELIQUIS 5 MG PO ×2 (08:24→20:06)
[2025-01-08] MEDS: ZESTRIL 5 MG PO (08:25)
[2025-01-08] MEDS: ZITHROMAX 500 MG PO (08:38)
--- NOTE | 2025-01-08 10:09 | W.PN.PUL3 ---
Today's Communication / Plan
-
-Complete 5 days of Antibiotics for Pneumonia
-Resume Trelegy and PRN Albuterol after discharge
-Home o2 if needed
-Pulmonary team will sign off, please call if needed.
Assessment
-
Patient is a very pleasant 89-year-old female with known history of underlying severe COPD with emphysema as well as recent hospitalization for COPD exacerbation. Patient states that after discharge she was reportedly at her baseline. On
evaluation by visiting nurse, patient was noted to be hypoxic as well as had diffuse bilateral wheezing. This prompted return to the emergency room. Patient had a CT scan performed which was suggestive of right middle lobe collapse. Patient was
started on inhaled bronchodilators, steroids, antibiotics and pulmonary consultation was requested for further input.
#1. Acute on chronic COPD exacerbation. Suspect her symptoms are more related to RML collapse.
-Continue Duoneb qid
-Continue Budesonide bid
-Wheezing resolved, agree with stopping oral steroids
-At d/c can resume Trelegy and PRN Albuterol. Likely will need home O2 at discharge
#2. Right middle lobe collapse:
-Likely related to mucous plug but it also could be related to an endobronchial tumor or cancer
-Continue chest percussion therapy right middle lobe
-Continue DuoNeb and budesonide as scheduled.
-Continue 3%, hypertonic saline nebs twice a day and continue Mucinex. Patient does not want to use Nebz at home, feels that she would like to just stick with inhalers.
-Patient is 89 and has underlying severe COPD which puts her at risk of respiratory failure and need for intubation and mechanical ventilation with bronchoscopy. I discussed with the patient as well as her daughter regarding risks and benefits of
bronchoscopy. Patient is very clear in her wishes that she does not want to proceed with any procedures. She understands the risk of an endobronchial tumor or cancer and does not want to pursue any further workup. Patient states that even if she
is diagnosed with cancer, she would not pursue with any treatment. I think it is reasonable and we will continue conservative measures for now
#3. Multifocal pneumonia. WBC normal, patient is afebrile. Mucous plugs are also in differentials.
-Continue Rocephin and Azithromycin. 5 days therapy should suffice
Other medical issues:
-Atrial fibrillation on anticoagulation
-HTN, HLD
Total time spent on this consultation/encounter __30__ minutes which includes review of history, physical exam, medications, laboratory data, personal review of imaging, extensive review of outpatient records, discussion with care team and
respiratory therapy.
Data:
CT Chest 01/2025: There is complete opacification of the right middle lobe bronchus with associated right middle lobe collapse. Findings may be secondary to endobronchial lesion or mucous plugging. Consider bronchoscopy for further evaluation.
Moderate apical predominant emphysematous changes with scattered nodular consolidations and groundglass opacities involving the right upper and bilateral lower lobes which likely represents multifocal pneumonia. There is additional bronchial wall
thickening and mucoid impaction, likely endobronchial infection. Recommend follow-up CT chest to ensure resolution.
The right hilum is asymmetrically prominent which may be vascular in nature or represent an enlarged lymph node.
ECHO 02/2022: Normal left ventricular size, wall thickness and systolic function. LV ejection fraction is 75%.
Mild to moderate mitral stenosis. Mild mitral regurgitation. Mild aortic stenosis.
Subjective Data
-
Date of Service:
Date of Service: January 08, 2025
Subjective:
Sitting in chair, feels at her baseline from respiratory stand point
Review of Systems
Genitourinary: Other (No new symptoms reported )
Objective Data
Data Reviewed
Vital Signs / I&O / Oxygen:
Vital Signs
Temp Pulse Resp BP Pulse Ox
97.6 F 67 16 141/69 98
01/08/25 07:52 01/08/25 07:52 01/08/25 07:22 01/08/25 07:52 01/08/25 08:15
Intake and Output
01/07/25 01/08/25 01/09/25
06:59 06:59 06:59
Intake Total 1420 / 1420 1140 / 1140
Balance 1420 / 1420 1140 / 1140
SaO2 98
Nasal Cannula flow liters per 2
minute
Physical Exam
General: Comfortable
HEENT: Normocephalic
Cardiovascular: S1-S2
Respiratory: Clear and Other (No wheezing this morning)
GI: Non Distended
Neurology: Awake and Alert
Skin: Warm
Labs/Micro/Reports
Lab Data
01/08/25 05:19
01/08/25 05:19
Microbiology
01/05/25 06:04 Nose MRSA Screen - Final
No Methicillin Resistant Staphylococcus aureus isolated.
--- NOTE | 2025-01-08 11:20 | VNURNOTE ---
Chart reviewed. Patient is current with [facility] nursing, OT. Will continue to follow hospital course and DC plans.
--- NOTE | 2025-01-08 14:13 | W.PN.HOSP.TC ---
Today's Communication/Plan
-
Assessment / Plan
Assessment / Plan
General: No Apparent Distress, Comfortable and Conversant
HEENT: NormoCephalic, Moist mucous membranes, Atraumatic, nasal cannula in place
Respiratory: Clear and Non Labored Respirations
Cardiac: S1/S2 and Regular Rhythm; No Rub or Gallop
GI: Soft, Non Tender, Non Distended and Normal Bowel Sounds
Musculoskeletal: No Edema, no deformity
: NO Carvajal
Neuro: Awake, Alert, Nonfocal/grossly intact
Psych: Calm and Intact Judgment/Insight
Acute Hypoxic Respiratory Insufficiency secondary to Recurrent Acute COPD Exacerbation
much better with SaO2 96% on 2 L/M
-Continue supplemental oxygen
- Completing 5-day course of antibiotics today 01/08
- Completed course of steroids
-Continue scheduled breathing treatments
Recurrent Acute COPD Exacerbation
-CT chest shows complete opacification of right middle lobe bronchus with right middle lobe collapse, possibly secondary to endobronchial lesion or mucous plugging
-Patient does not want to pursue further evaluation including bronchoscopy
- Appreciate pulmonology input
-Currently breathing comfortably and saturating fully on 2 L via nasal cannula
-Medically stable for discharge to SNF/assisted living
Paroxysmal Atrial Fibrillation
-Continue Eliquis for anticoagulation
-Continue diltiazem for rate control
Essential Hypertension
-Continue lisinopril with hold parameters
Hyperlipidemia
-Continue rosuvastatin
Depression
-Continue mirtazapine
DVT proph: Eliquis
Code Status: DNR per patient at time of admission
Pt told both hospitalist and pulm that she does not want further evaluation of the possible chest mass, does not believe she would survive treatment if it was a cancer
This was reviewed by phone with her dgt, Reyes who is in agreement
Discussed with Reyes that pt really wants to return to her facility. Would suggest home health aides and should contact CM to help coordinate. If pt decides that she does not wish to return to the hospital if she worsens would then transition,
at that time, to Hospice and should discuss with facility whether she could stay there on Hospice. Continue abx for now with plan dc next 24-48 hrs
Anticipated Discharge: 24 - 48 hours
Subjective/Interval History
-
Date of Service: January 08, 2025
Patient was seen and examined at bedside this morning. Breathing comfortably and saturating appropriately on 2 L via nasal cannula. Awaiting SNF placement.
Objective Data
-
Labs:
Laboratory Results
01/08/25
05:19
WBC 14.6 H
Hgb 12.6
Hct 41.0
Plt Count 343 D
Sodium 143
Potassium 4.5
Chloride 105
Carbon Dioxide 29
BUN 30 H
Creatinine 0.7
Glucose 144 H
Calcium 9.8
Vital Signs:
Vital Signs
Temp Pulse Resp BP Pulse Ox
97.6 F 69 16 141/69 97
01/08/25 07:52 01/08/25 11:07 01/08/25 11:07 01/08/25 07:52 01/08/25 11:07
I&O
01/07/25 01/08/25 01/09/25
06:59 06:59 06:59
Intake Total 1420 / 1420 1140 / 1140
Balance 1420 / 1420 1140 / 1140
Review of Systems
-
History Source: Patient
All other systems: Reviewed and negative
Physical Exam
-
General: No Apparent Distress
[2025-01-08 15:10] VITALS: BP 159/56
[2025-01-08] MEDS: CRESTOR 5 MG PO (17:08)
[2025-01-08] MEDS: REMERON 15 MG PO (17:08)
[2025-01-08] MEDS: CARDIZEM CD 180 MG PO (17:12)
--- NOTE | 2025-01-08 17:45 | CM ---
Updated PT OT evals needed .
[facility] to be called day of dc for bed availability .
Spoke with pt and Shannan [phone] she agrees pt needs SNF at dc.
IMM left at bedside for family to review.
Pt is in agreement to go to SNF at dc.
Pt on oxygen 2 liter [place] Pox 97%.
PLAN [facility]
[2025-01-08] MEDS: STERILE WATER FOR INJECTION IV (20:06)
[2025-01-08 23:35] VITALS: BP 114/85
[2025-01-09 06:00] VITALS: BMI 27.2
[2025-01-09] MEDS: PULMICORT 0.5 MG INH (07:29)
[2025-01-09] MEDS: DUONEB 3 ML INH ×3 (07:29→15:58)
[2025-01-09] MEDS: SODIUM CHLORIDE 3% FOR INHALATION 1 VIAL INH (07:29)
[2025-01-09] MEDS: OCUVITE SOFTGEL 1 CAP PO (07:44)
[2025-01-09] MEDS: ZESTRIL 5 MG PO (07:44)
[2025-01-09] MEDS: MUCINEX 600 MG PO (07:44)
[2025-01-09] MEDS: ELIQUIS 5 MG PO (07:44)
[2025-01-09 07:49] VITALS: BP 152/67
[2025-01-09 12:57] VITALS: PULSE 94; O2SAT 95
[2025-01-09 13:42] VITALS: PULSE 94; O2SAT 95
--- NOTE | 2025-01-09 14:40 | W.DCSUMMARY ---
Addendum entered and electronically signed by Alvino Sprague DO 01/10/25 09:57:
Chronic hypoxic respiratory failure-patient requires continuous home O2 use, O2 requirements did not increase during hospitalization
atrial flutter/flutter is a valid diagnosis
Original Note:
Discharge Summary
Discharge Data
Date of Admission: 01/04/25
Date of Discharge: 01/09/25
-
Pending Results: No
Hospital Course
Ms. Lopes is a 89-year-old female with a medical history of COPD, chronic hypoxic respiratory failure (2 L O2 at baseline), A-fib, and hypertension who presented due to worsening hypoxia noted by her visiting nurse. She was found to have an acute
COPD exacerbation and was admitted for further evaluation and management. She completed a course of steroids with improvement in her respiratory status. She has been titrated back down to her baseline of 2 L oxygen via nasal cannula, however she
does desaturate with ambulation. Chest imaging showed complete opacification of the right middle lobe bronchus with right lower lobe collapse possibly secondary to endobronchial lesion or mucous plugging. Imaging findings were discussed with
patient and family. Patient does not want to pursue further evaluation of possible chest mass and understands that the chest imaging findings may be due to cancer. Patient would not want to pursue treatment even if it was confirmed that she does
have cancer. She did complete a course of antibiotics empirically for possible multifocal pneumonia. She was evaluated by pulmonology while inpatient. She should continue her home Trelegy and as needed albuterol after discharge. She was
evaluated by physical therapy and Occupational Therapy who recommended custodial facility after discharge. She was medically stable at time of discharge from this hospitalization. She will need close follow-up with her primary care physician
and with her video library assistant.
General: No Apparent Distress, Comfortable and Conversant
HEENT: NormoCephalic, Moist mucous membranes, Atraumatic, nasal cannula in place
Respiratory: Clear and Non Labored Respirations
Cardiac: S1/S2 and Regular Rhythm; No Rub or Gallop
GI: Soft, Non Tender, Non Distended and Normal Bowel Sounds
Musculoskeletal: No Edema, no deformity
: NO Carvajal
Neuro: Awake, Alert, Nonfocal/grossly intact
Psych: Calm and Intact Judgment/Insight
Discharge Plan
-
Patient Disposition: Detention/SNF
Discharge Diagnosis/Procedures: Acute on chronic respiratory failure with hypoxia, COPD exacerbation
Diet: 2 Gram Sodium
Activity: With assistance and As tolerated
Activity Restrictions/Additional Instructions:
Ms. Lopes is a 89-year-old female with a medical history of COPD, chronic hypoxic respiratory failure (2 L O2 at baseline), A-fib, and hypertension who presented due to worsening hypoxia noted by her visiting nurse. She was found to have an acute
COPD exacerbation and was admitted for further evaluation and management. She completed a course of steroids with improvement in her respiratory status. She has been titrated back down to her baseline of 2 L oxygen via nasal cannula, however she
does desaturate with ambulation. Chest imaging showed complete opacification of the right middle lobe bronchus with right lower lobe collapse possibly secondary to endobronchial lesion or mucous plugging. Imaging findings were discussed with
patient and family. Patient does not want to pursue further evaluation of possible chest mass and understands that the chest imaging findings may be due to cancer. Patient would not want to pursue treatment even if it was confirmed that she does
have cancer. She did complete a course of antibiotics empirically for possible multifocal pneumonia. She was evaluated by pulmonology while inpatient. She should continue her home Trelegy and as needed albuterol after discharge. She was
evaluated by physical therapy and Occupational Therapy who recommended custodial facility after discharge. She was medically stable at time of discharge from this hospitalization. She will need close follow-up with her primary care physician
and with her video library assistant.
Referrals:
Maurizio Sumner MD [Active] - As needed (Patient can follow as needed. )
NONE,* [Family Provider] -
Prescriptions:
New
mirtazapine 15 mg Tablet
15 mg PO QPM 30 Days Qty: 30 0RF
Continued
lisinopril 5 MG tablet
5 mg PO DAILY
diltiazem HCl 180 MG capsule,extended release 24hr
180 mg PO DAILY
Trelegy Ellipta 100-62.5-25 mcg Blister With Device
1 inh INHALATION R DAILY
albuterol sulfate 90 mcg/actuation Hfa Aerosol Inhaler
1 inh INHALATION Q4HPRN PRN (Reason: sob)
azelastine 137 mcg (0.1 %) [place],Non-Aerosol
1 spray INTRANASAL DAILY
PreserVision AREDS 2,148 mcg-113 mg-45 mg-17.4mg Tablet
2 tab PO DAILY
cholecalciferol (vitamin D3) [Vitamin D3] 50 mcg (2,000 unit) Capsule
50 mcg PO DAILY
Changed
Eliquis 5 MG tablet
5 mg PO BID Qty: 0 0RF
Patient Comments:
01/04/25: Roxie (daughter) states the patient does not take her night time doses as she should be.
Discontinued
montelukast 10 MG tablet
10 mg PO DAILY
Discharge Orders:
Discharge Patient (As Directed); Ordered 01/09/25
Ordered By: Alvino Sprague
Discharge Date and Time
Print Language: [place] LUCI[place]
--- NOTE | 2025-01-09 15:05 | CM ---
Addendum entered by Kay Hackett RN 01/09/25 15:40:
[employer] rep obtained auth for pt from 01/09/25 to 01/15/25 auth number [id number] [facility] call [phone]
Acute care ambulance auth [id number].
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 Roxie was given IMM letter she is in agreement with dc to SNf .
PLAN To [facility] via ambulance after Covid test
Original Note:
MD entered order for discharge.
Requested updated PT OT evals.
Shannon dgt agreed with [facility] SNF.
Spoke with [facility] she said pt had bed today after auth.
Requested Covid test from MD as per [facility] request.
Con firmed with pts dgt pt is new to oxygen .She does not have oxygen set up at Home /[place].
Medical nec form completed for ambulance .
[facility]
report [phone]
fax [phone]
PLAN To [facility] after auth and Covid done
[2025-01-09 15:51] VITALS: BP 107/65
[2025-01-09 16:15] LABS: COVID-19 Antigen Negative (Negative)
[2025-01-09] MEDS: CRESTOR 5 MG PO (17:16)
[2025-01-09] MEDS: REMERON 15 MG PO (17:16)
[2025-01-09] MEDS: CARDIZEM CD 180 MG PO (17:16)
--- NOTE | 2025-01-10 08:56 | PN.CDI ---
CDI
- -
CDI:
Physician Documentation Request
Admit Date: 01/04/25 18:12
Dear Doctor Darcie,
The diagnosis of atrial flutter was included in the signed EKG 01/04
Please indicate in your progress notes if you are in agreement that the above diagnosis is valid for this patient:
____ - atrial flutter is a valid diagnosis (Please include it in your progress notes)
____ - atrial flutter is not a valid diagnosis for this patient
____ - Other
Use of terms such as suspected, likely, concern for, or probable are acceptable for a diagnosis that is being evaluated, monitored or treated as if it exists and can be coded in the inpatient setting, when documented at the time of discharge.
Thank you,
Michelle Saldivar RN, BSN
CDI Specialist
tiger text
Please use your independent medical judgment in providing your response.
--- NOTE | 2025-01-10 08:59 | PN.CDI ---
CDI
- -
CDI:
Physician Documentation Request
Admit Date: 01/04/25 18:12
Dear Doctor Darcie,
Patient presented to ED for increased work of breathing. Record states 'she is not typically on oxygen but currently is requiring oxygen'
Documented vital signs show patient on 1.5-2L O2 throughout hospitalization.
H&P and progress notes contain a diagnosis of 'Acute Hypoxic Respiratory Insufficiency secondary to Recurrent Acute COPD Exacerbation'
Discharge summary states 'chronic hypoxic respiratory failure (2 L O2 at baseline).......Acute on chronic respiratory failure with hypoxia'
Please clarify which of the following accurately represents the patient's respiratory status:
Chronic hypoxic respiratory failure-patient requires continuous home O2 use, O2 requirements did not increase during hospitalization
Acute on chronic respiratory failure -patient requires continuous home O2 use with increased requirements from baseline while hospitalized
Hypoxia - requiring intermittent home O2 use, used 2 L while hospitalized.
Other
Additional information for Respiratory Failure:
Recognized criteria for Respiratory Failure (Source: [facility]ist Aug 2013)
ABGs: (1 or more) Symptoms
1. p)2 <60 or RA SPO2 <91% on RA 1. Tachypnea, SOB, dyspnea
2. pCO2 50 and pH <7.35 2. Use of accessory muscles
3. pO2 decrease of pCO2 increase by 3. Pallor or cyanosis
10 mmHg from baseline if known 4. Anxiety or restlessness
5. Unable to speak in full sentences
Supplemental O2 of > 40% (5LPM) Intubation is not required
Use of terms such as suspected, likely, concern for, or probable (associated with a specific diagnosis that is being evaluated, monitored, or treated as if it exists) are acceptable and can be coded in the inpatient setting, when documented at the
time of discharge.
Thank you,
Michelle Saldivar RN, BSN
CDI Specialist
tiger text
Please use your independent medical judgment in providing your response.
== END 2025-01-09 18:43 | DRG 190 ==
LOC: 3 WEST ACU 18:12
PROVIDERS: Physician Assistant Medical; ADMITTING PHYSICIAN Internal Medicine; ATTENDING PHYSICIAN Internal Medicine; EMERGENCY PHYSICIAN Emergency Medicine; OTHER PHYSICIAN Internal Medicine
DX: J44.1 Chronic obstructive pulmonary disease with (acute) exacerbation (principal); J18.9 Pneumonia, unspecified organism; J98.19 Other pulmonary collapse; T17.890A Other foreign object in other parts of respiratory tract causing asphyxiation, initial encounter; J96.11 Chronic respiratory failure with hypoxia; I48.92 Unspecified atrial flutter; J44.0 Chronic obstructive pulmonary disease with (acute) lower respiratory infection; I48.0 Paroxysmal atrial fibrillation; Z79.01 Long term (current) use of anticoagulants; I10 Essential (primary) hypertension; E78.00 Pure hypercholesterolemia, unspecified; Z66 Do not resuscitate; F32.A Depression, unspecified; R91.1 Solitary pulmonary nodule; I87.2 Venous insufficiency (chronic) (peripheral); M81.0 Age-related osteoporosis without current pathological fracture; Z87.891 Personal history of nicotine dependence; Z88.5 Allergy status to narcotic agent; Z11.52 Encounter for screening for COVID-19; J43.9 Emphysema, unspecified; Z79.899 Other long term (current) drug therapy; Z99.81 Dependence on supplemental oxygen
CPT/HCPCS: 71046; 71250; 80048; 80053; 83735; 83880; 84484; 85025; 85027; 87070; 87502; 87811; 93005; 94640; 94667; 94668; 97116; 97163; 97167; 97535; 99285

== ENCOUNTER 2025-01-25 13:47 | Inpatient (IN) | payer OTHER, SELFPAY ==
[2025-01-25] VITALS (15 sets, daily range): BP systolic 89–139; BP diastolic 45–80; BMI 27.5
--- NOTE | 2025-01-25 09:59 | ED.GENMED ---
History of Present Illness
General
Chief Complaint: Breathing Problem
Source: patient
Exam Limitations: dementia
Time Seen by Provider: 01/25/25 09:40
Nursing documentation reviewed up to this point in time: agreed with
History of Present Illness
History of Present Illness:
pt is a 89 y/o F
h/o COPD (2L o2 by NC per last admission note, but pt denies), memory loss/dementia, PAF on eliquis, cad
here with hypoxia per nursing staff this am when they rounded her o2 was 83%;
pt is on 6L now in the ED
she doesn' tfeel SOB, denies ches tpain, cough but is coughing mildly which sounds wet
no fever reported
no nebs treatment given today but she does use them daily
pt was admitted 01/04 to 01/09 for COPD exacerbation causing hypoxia; she had steroids and antibiotics when CT chest showed complete opacification fo the RML bronchius with lower lung collapse
there was a suggestion to pt and family that this could be malignancy but she declined any work up because she would not pursue any treamtn
Past History
Past History
ED Past Medical History: Arrthythmia (A. fib), COPD, HTN and Hypercholesterolemia
ED Past Surgical History: Appendectomy
Social History
Tobacco: Former smoker
Alcohol: Former
Drug: None
Personal:
Living: alone
Family History
Family History: Other (Noncontributory)
Phy Exam
Physical Exam
Physical Exam:
GENERAL: Alert , mildly tachypneic
EYE: pupils equal and reactive
NECK: Supple
ENT: o/p clr, mmm.
CARDIAC: tachycardic 100s
LUNGS: dminished; slight end exp wheezing, some crackles R base, wet sounding cough, tachypneic
ABDOMEN: Soft, without focal tenderness, no r/g, no cvat, normal bowel sounds
NEUROLOGICAL: Alert and oriented, no focal neuro deficits
SKIN: Warm and dry, skin intact.
MUSCULOSKELETAL: mild edema R>L with venous s tasis dermatitis chroinc, not warm; normal pulses
PSYCH: Normal and appropriate interaction.
Course
Orders/Labs/Results
Orders:
Orders
01/25/25 09:59
Cardiac Monitoring- Treatment ONCE
Ipratropium/Albuterol Sulfate [Duoneb] 3 ml INH R NOW STA
CR Chest Portable - 1 View Urgent
Comment:
Reason For Exam: dyspnea, hypoxia
Reason Study Needs to be Portable: Patient Unstable
01/25/25 10:00
Electrocardiogram (*1) Stat
Reason for Study: Other
Other Reason for Exam: pneumonia
EKG- Treatment ONCE
01/25/25 10:10
Dexamethasone Sod Phosphate [Decadron] 2 mg IV NOW STA
01/25/25 10:18
COVID-19 Antigen Urgent
Source: Nasal Swab
Complete Blood Count/With Diff Urgent
Influenza A+B Rapid Molecular Urgent
CARROLL Source: Nasal Swab
Specimen Description:
01/25/25 11:03
Comprehensive Metabolic Panel Urgent
NT-proBNP Urgent
Troponin I Urgent
01/25/25 11:37
Ipratropium/Albuterol Sulfate [Duoneb] 3 ml INH R NOW STA
01/25/25 12:52
Venous Doppler Lwr Ext Rt [[facility] Venous LOWER Ext RT] Urgent
Comment:
Reason For Exam: erythematous leg concern DVT erythema, swelling
Abnormal Lab Results
01/25/25 01/25/25
10:18 11:03
RBC 4.00 L 10^6/uL
(4.20-5.40)
Hgb 11.2 L g/dL
(12.0-16.0)
Hct 34.5 L %
(37.0-47.0)
MCHC 32.5 L g/dL
(33.0-37.0)
RDW 16.3 H %
(11.5-14.5)
Abs Immat Gran (auto) 0.1 H 10^3/uL
(0-0.05)
Absolute Neuts (auto) 8.9 H 10^3/uL
(1.4-6.5)
Absolute Lymphs (auto) 0.3 L 10^3/uL
(1.2-3.4)
Immature Gran % 1.0 H %
(0-0.5)
Neutrophils % 92.1 H %
(42.2-75.2)
Lymphocytes % 3.3 L %
(20.5-51.1)
Chloride 97 L mmol/L
(98-107)
Carbon Dioxide 35 H mmol/L
(22-30)
Creatinine 0.5 L mg/dL
(0.6-1.0)
Glucose 146 H mg/dl
(70-99)
Calcium 8.2 L mg/dl
(8.4-10.2)
ALT 44 H U/L
(0-35)
Total Protein 5.3 L g/dl
(6.3-8.2)
Albumin 2.8 L g/dl
(3.5-5.0)
01/25/25 10:18
01/25/25 11:03
Vital Signs
Initial and Last Documented VS:
Initial Vital Signs
Temp Pulse Resp BP Pulse Ox
36.6 C 103 28 139/64 98
01/25/25 09:36 01/25/25 09:36 01/25/25 09:36 01/25/25 09:36 01/25/25 09:36
Last Documented Vital Signs
Temp Pulse Resp BP Pulse Ox
36.6 C 98 20 113/56 97
01/25/25 09:36 01/25/25 12:15 01/25/25 12:15 01/25/25 12:00 01/25/25 12:15
ED Attending Note
-
Portions of this chart may have been created with voice recognition software.� Occasional wrong word or��sound alike� substitutions may have occurred due to the inherent limitations of voice recognition software.
Discharge Plan
Departure
Patient Disposition: Admit
Date of Disposition: 01/25/25
Time of Disposition: 11:54
Admit to: Telemetry
Patient with high blood pressure during this ER visit?: Yes
Condition: Fair
Covid-19: Not Applicable
Discharge Problem:
COPD exacerbation, Hypoxia
Prescriptions:
No Action
lisinopril 5 MG tablet
5 mg PO DAILY
diltiazem HCl 180 MG capsule,extended release 24hr
180 mg PO QPM
albuterol sulfate 90 mcg/actuation Hfa Aerosol Inhaler
1 inh INHALATION R Q4HPRN PRN (Reason: sob)
azelastine 137 mcg (0.1 %) [place],Non-Aerosol
1 spray INTRANASAL DAILY
PreserVision AREDS 2,148 mcg-113 mg-45 mg-17.4mg Tablet
2 tab PO DAILY
cholecalciferol (vitamin D3) [Vitamin D3] 50 mcg (2,000 unit) Capsule
50 mcg PO DAILY
Eliquis 5 MG tablet
5 mg PO BID Qty: 0 0RF
ipratropium-albuterol [DuoNeb] 0.5 mg-3 mg(2.5 mg base)/3 mL Solution For Nebulization
3 ml INHALATION R TID
magnesium hydroxide [Milk of Magnesia] 400 mg/5 mL Suspension
2,400 mg PO DAILYPRN PRN (Reason: IF NO BM BY 2ND DAY)
bisacodyl [Dulcolax (bisacodyl)] 10 mg Suppository
10 mg IA DAILYPRN PRN (Reason: IF NO BM AFTR MOM)
Fleet Enema 19-7 gram/118 mL Enema
118 ml IA DAILYPRN PRN (Reason: IF NO BM AFTR DULCOLAX)
Refresh Optive 0.5-0.9 % Drops
1 drp BOTH EYES BID
umeclidinium-vilanterol [Anoro Ellipta] 62.5-25 mcg/actuation Blister With Device
1 inh INHALATION R DAILY
mirtazapine 15 mg tablet
15 mg PO HS
Referrals:
Bud Pierce MD [Family Provider] -
Interventions
Interventions:
*Risk Screen - Suicide Last Done: 01/25/25 09:36
*General Assessment Last Done: 01/25/25 09:36
*Neglect/Abuse Screening Last Done: 01/25/25 09:36
*ED- Fall Risk Assessment Last Done: 01/25/25 09:36
*ED COVID-19 Vaccine History Last Done: 01/25/25 09:36
ED- Cardiac Assessment Last Done: 01/25/25 10:25
ED- Pulmonary Assessment Last Done: 01/25/25 10:25
Discharge Date and Time
Print Language: LATVIAN
[2025-01-25] MEDS: DUONEB 3 ML INH ×3 (10:31→19:51)
[2025-01-25] MEDS: DECADRON 2 MG IV (10:32)
[2025-01-25 10:49] LABS: Hematocrit 34.5 % (37.0-47.0); Hemoglobin 11.2 g/dL (12.0-16.0); Mean Corp Hgb Conc. 32.5 g/dL (33.0-37.0); Mean Corpuscular Volume 86.3 fL (81.0-99.0); Red Cell Dist. Width 16.3 % (11.5-14.5); White Blood Cell Count 9.7 10^3/uL (4.8-10.8)
[2025-01-25 10:50] LABS: % Basophils 0.3 % (0-2); % Eosinophils 0.7 % (0-6); % Lymphocytes 3.3 % (20.5-51.1); % Monocytes 2.6 % (1.7-9.3); % Neutrophils 92.1 % (42.2-75.2); Absolute Eosinophils 0.1 10^3/uL (0-0.7); Absolute Immature Granulocytes 0.1 10^3/uL (0-0.05); Absolute Lymphocytes 0.3 10^3/uL (1.2-3.4); Absolute Monocytes 0.3 10^3/uL (0.1-0.6); Absolute Neutrophils 8.9 10^3/uL (1.4-6.5); Nucleated Red Blood Cells % 0 %
[2025-01-25 10:58] LABS: COVID-19 Antigen Negative (Negative)
[2025-01-25 11:16] LABS: Mean Platelet Volume 9.8 fL (7.4-10.4); Platelet Count 247 10^3/uL (130-400)
[2025-01-25 11:43] LABS: ALT (SGPT) 44 U/L (0-35); AST (SGOT) 25 U/L (14-36); Albumin 2.8 g/dl (3.5-5.0); Alkaline Phosphatase 96 U/L (38-126); Blood Urea Nitrogen 16 mg/dl (7-17); Calcium 8.2 mg/dl (8.4-10.2); Carbon Dioxide 35 mmol/L (22-30); Chloride 97 mmol/L (98-107); Glucose 146 mg/dl (70-99); Potassium 3.9 mmol/L (3.5-5.1); Sodium 135 mmol/L (135-145); Total Bilirubin 0.6 mg/dl (0.2-1.3); Total Protein 5.3 g/dl (6.3-8.2); eGFR > 60.00
[2025-01-25 11:53] LABS: NT-proBNP 531 pg/ml; Troponin I < 0.012 ng/ml
--- NOTE | 2025-01-25 12:52 | W.PN.UPDATE ---
Update Note
Progress Note Update
I could not get any information from the patient has MCI/ mild dementia
Information gathered by chart review and speaking with the ER staff, family and SIMULATION SOFTWARE ENGINEER
This note serves as an addendum to the H&P by filtration operator OKFI
Ailyn VALLE
HPI
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
since 01/04/25 recent admission Dxed AE COPD , multifocal PNA, Rt ML and Rt LL opacity but declined by fa,shahriar further w/u, PMHX of Prx AF on Eliquis , HTN on Lisinopril, CAD seen at ER for hypoxia with POx 83% on 2 L per daughter per SNF RNs
- Currently on on 6L now in the ED
- denied SOB, denies chest tpain
- coughing mildly which sounds wet
- no fever reported
- on Nebs daily
Recent admission : 01/04 to 01/09 for COPD exacerbation causing hypoxia; she had steroids and antibiotics when CT chest showed complete opacification fo the RML bronchius with lower lung collapse. There was a suggestion to pt and family that this could
be malignancy but she declined any work up because she would not pursue any treamtn
VSS
01/25/25
09:36
Temp 97.8 F
Pulse 103
Resp Rate 28
Blood pressure 139/64
SaO2 98
Nasal Cannula flow liters per minute 6
PE
Gen: Not toxic
HEENT:anicteric
Neck: supple
Lungs: no wheeze on my exam
Cor: RRR S1 S2
Abdomen: benig exam
BAG WORKER: AA, non focal exam
MS: cellulitis of Lt LLEx with oozing serosanguineous fluid
Psych: preserved social skills
01/25/25
10:18
Hgb 11.2 L
01/08/25 01/25/25 01/25/25
05:19 10:18 11:03
Chloride 97 L
Carbon Dioxide 29 35 H
Creatinine 0.5 L
eGFR > 60.00
Glucose 146 H
Calcium 8.2 L
ALT 44 H
Troponin I < 0.012
Jpf-C-Ogqiolsclrw Pept 531
Albumin 2.8 L
SARS-CoV-2 Antigen
Flu A & B Negative
Ngative
EKG
SINUS RHYTHM WITH PREMATURE SUPRAVENTRICULAR COMPLEXES
OTHERWISE NORMAL ECG
WHEN COMPARED WITH ECG OF 04-JAN-2025 14:27,
SINUS RHYTHM HAS REPLACED ATRIAL FLUTTER
Confirmed by RODNEY MACIAS MD ([id number]) on 01/25/2025 11:02:04 AM
01/25/25 CXR
1. Hazy opacity within the right upper lung zone, likely corresponding to a focus of groundglass opacity within the right upper lobe on recent prior chest CT dated 01/04/2025. Additional tree-in-bud opacities were seen on each side on prior chest CT,
and overall findings are most suggestive of atypical infection with endobronchial spread.
2. Findings suggestive of COPD.
01/04/25 CTC without contrast
There is complete opacification of the right middle lobe bronchus with associated right middle lobe collapse. Findings may be secondary to endobronchial lesion or mucous plugging. Consider bronchoscopy for further evaluation.
Moderate apical predominant emphysematous changes with scattered nodular consolidations and groundglass opacities involving the right upper and bilateral lower lobes which likely represents multifocal pneumonia. There is additional bronchial wall
thickening and mucoid impaction, likely endobronchial infection. Recommend follow-up CT chest to ensure resolution.
The right hilum is asymmetrically prominent which may be vascular in nature or represent an enlarged lymph node.
ASSESSMENT & PLAN
Acute vs subacute worsening hypoxia with higher O2 demand - on 6 L NCO2
Acute elevated Bicarb concerning for CO2 retention but still alert and remain wakeful
Upon arrival at ER : documented increased work of breathing, faint wheezing, cough
CXR as above
- Lower NC O2 to keep hypoxic drive and avoid further CO2 retention
- s/p completion of 5 days course of
- s/p IV 2 mg Decadron at ER with 2 DuoNeb
- No wheezes upo my exam
- c/w IV Decadron 4 mg q12h
- escalade to DuoNeb qid fron tid
- check PCT
- Start empiric IV CFTX and PO Doxy while pending PCT
Abnormal Rt ML and Rt LL opacity
Prior chest CT on last admission suggestive she could have malginancy
- declined further w/u by family
- somewhat empiric palliative care and observe for now
- DNR
Cellulitis of Lt LLEx with oozing serosanguineous fluid
- afebrile and nl WCC
- c/w CFTX and PO Doxy
- Prelim NEG US LLEx
In NSR
HX Prx AF on chr Eliquis
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
DNR
IP TLM
--- NOTE | 2025-01-25 12:59 | HPS.HSE ---
Family Physician
-
Family Physician: Bud Pierce MD
Chief Complaint
-
Hypoxia on oxygen
History of Present Illness
89-year-old female from [facility] rehab where she has been since 01/09/25 after a recent admission for COPD exacerbation with multifocal pneumonia requiring addition of 2 L chronic oxygen due to desaturation with walking. She was due to leave
[facility] rehab and go back to [facility], however today she was having labored breathing with reported oxygen pulse ox 80 to 84%, however she is 100% on 6 L nasal cannula while here which I am slowly titrating due to hypercarbia.
She denies a productive headache, sore throat cough, fever, chills, chest pain, palpitations, abdominal pain, nausea, vomiting, diarrhea, urinary symptoms. She has a erythematous, edematous right lower extremity with +3 dorsal pedal edema slightly
oozing serous fluid that is new since her previous admission 2 weeks ago she has some scant edema to her left lower extremity with slight venous stasis dermatitis. She has negative Homans signs bilateral legs. She is unaware of her prior shortness
of breath and [facility] but does have history of mild cognitive impairment with short-term memory impairment she is oriented to her name her current family in the room and some of her medical history
The patient had a recent admission 01/04/2505/28econdary to COPD exacerbation with hypoxic respiratory failure requiring 2 L of oxygen on discharge due to desaturation with ambulation to [facility]ab. During her stay she was treated for
opacification of the right middle lobe bronchus with right lower lobe collapse possibly secondary to endobronchial lesion or mucous plugging at that time family did not want to pursue any further evaluation of a chest mass and understood possibility
of cancer. She completed a course of antibiotics for multifocal pneumonia and was advised to continue her Trelegy.
Medical History
Past Medical History
Past Medical History: Reports Other
Additional Past Medical History:
Paroxysmal Atrial Fibrillation
Essential Hypertension
Hyperlipidemia
COPD
Depression
Past Surgical History: Reports Other
Additional Past Surgical History:
Bilateral HUGO
Appendectomy
Cataracts
Social History
Tobacco: Former Smoker (35 years 1 pack a day quit 20 years ago)
Alcohol: Former (Drink daily alcohol but quit 20 years ago)
Drug: None
Personal: Single
Living: Other (Currently at [facility] rehab lives at [facility])
Employment: Retired
Family History
Family History: Other (Mother late 90s father history of CHF/cardiomyopathy, 1 brother living multiple CVAs and unknown type of cancer)
Allergies / Home Medications
Allergies reflects when Allergies were last updated in [employer].
Home Medications with original date entered in [employer]
Allergy/Medication List:
Allergies
Allergy/AdvReac Type Severity Reaction Status Date / Time
animal dander Allergy Unknown Verified 01/04/25 14:32
morphine Allergy nausea and Verified 01/04/25 14:32
vomiting
peanut Allergy Unknown Verified 01/04/25 14:32
prednisone AdvReac Toxic Verified 01/04/25 14:32
metabolic
encephalopathy
Home Medications
diltiazem HCl 180 mg capsule,extended release 24 hr 180 mg PO QPM Blood pressure 02/27/22
lisinopril 5 mg tablet 5 mg PO DAILY Blood pressure 02/27/22
albuterol sulfate 90 mcg/actuation aerosol inhaler 1 inh inhalation R Q4HPRN PRN sob 12/23/24
azelastine 137 mcg (0.1 %) nasal spray 1 spray intranasal DAILY Congestion 01/04/25
cholecalciferol (vitamin D3) 50 mcg (2,000 unit) capsule (Vitamin D3) 50 mcg PO DAILY Supplement 01/04/25
vitamins A,C,C-crtu-jzezbx 2,148 mcg-113 mg-45 mg-17.4 mg tablet (PreserVision AREDS) 2 tab PO DAILY Supplement 01/04/25
apixaban 5 mg tablet (Eliquis) 5 mg PO BID Blood clot prevention/tx #0 tabs 04/08/25
bisacodyl 10 mg rectal suppository (Dulcolax (bisacodyl)) 10 mg ME DAILYPRN PRN IF NO BM AFTR MOM 01/25/25
carboxymethylcellulose 0.5 %-glycerin 0.9 % eye drops (Refresh Optive) 1 drp BOTH EYES BID 01/25/25
ipratropium 0.5 mg-albuterol 3 mg (2.5 mg base)/3 mL nebulization soln 3 ml inhalation R TID 01/25/25
magnesium hydroxide 400 mg/5 mL oral suspension (Milk of Magnesia) 2,400 mg PO DAILYPRN PRN IF NO BM BY 2ND DAY 01/25/25
mirtazapine 15 mg tablet 15 mg PO HS 01/25/25
sodium phosphates 19 gram-7 gram/118 mL enema (Fleet Enema) 118 ml ME DAILYPRN PRN IF NO BM AFTR DULCOLAX 01/25/25
umeclidinium 62.5 mcg-vilanterol 25 mcg/actuation powdr for inhalation (Anoro Ellipta) 1 inh inhalation R DAILY 01/25/25
Review of Systems
-
History Source: Patient and Family (Daughter steffanie Cabrera at bedside, son Dawson at bedside, daughter Roxie at bedside)
A 12 point ROS was completed and negative except as noted: Yes
Constitutional: Denies Fever or Chills
EENT: Denies Sore Throat or Runny Nose
Respiratory: Reports Cough (Chronic), Trouble Breathing and Other (Reported hypoxia 80-84% on 2 L nasal cannula at rehab)
Cardiac: Denies Chest Pain, Diaphoresis, Palpitations or Syncope
Abdomen/GI: Denies Abdominal Pain, Nausea, Vomiting, Diarrhea, Constipated, Bloody Stools or Black Stools
: Denies Dysuria, Frequency, Flank Pain, Incontinence, Difficulty Voiding or Urgency
Musculoskeletal: Reports Edema (+2 right lower extremity edema, +3 dorsal pedal that is oozing serous drainage, +1 left lower extremity erythema/chronic venous stasis dermatitis bilateral legs); Denies Joint Pain
Skin: Denies Itching or Rash
Neurological: Denies Dizzy, Headache or Weakness
Endocrine: Reports No Symptoms
Hematologic/Lymphatic: Reports No Symptoms
Psych: Reports Calm
Physical Exam
Vital Signs
Vital Signs
Temp Pulse Resp BP Pulse Ox
97.8 F 98 20 113/56 97
01/25/25 09:36 01/25/25 12:15 01/25/25 12:15 01/25/25 12:00 01/25/25 12:15
Physical Exam
General: Comfortable, Conversant and Obese; No Fever or Chills
HEENT: NormoCephalic, Anicteric, Moist mucous membranes, Atraumatic, PERRLA, Wood Conjunctivae, No Ptosis and Neck Nontender
Respiratory: Wheezes (Reported wheezes prior to my exam and 2 nebulizer treatments); No Rales or Rhonchi
Cardiac: S1/S2, Regular Rhythm and Peripheral Edema (+2 right lower extremity edema, +3 dorsal pedal that is oozing serous drainage, +1 left lower extremity erythema/chronic venous stasis dermatitis bilateral legs); No Murmur, Rub or Gallop
Breast: Deferred by me
GI: Soft, Non Tender, Non Distended, Normal Bowel Sounds and No Hepatosplenomegaly
Rectal: Deferred by Provider
Genito-urinary: Deferred by me
Musculoskeletal: No Clubbing, No Cyanosis, Edema, Left Lower Extremity, Edema, Right Lower Extremity and Other (+2 right lower extremity edema, +3 dorsal pedal that is oozing serous drainage, +1 left lower extremity erythema/chronic venous stasis
dermatitis bilateral legs); No Edema, Left Upper Extremity or Edema, Right Upper Extremity
Skin: Warm, Dry and Other (+2 right lower extremity edema, +3 dorsal pedal that is oozing serous drainage, +1 left lower extremity erythema/chronic venous stasis dermatitis bilateral legs)
Neuro: AO x 3 (Oriented to name, place, place of living, family at bedside but not medical history), Nonfocal/grossly intact, Cranial Nerves Intact and No Sensory Deficits; No Slurred Speech, Facial Droop, Tremors or Sedated
Psych: Calm
Laboratory Results
-
01/25/25 10:18
01/25/25 11:03
Laboratory Results
Total Bilirubin 0.6 mg/dl (0.2-1.3) 01/25/25 11:03
AST 25 U/L (14-36) 01/25/25 11:03
ALT 44 U/L (0-35) H 01/25/25 11:03
Alkaline Phosphatase 96 U/L (38-126) 01/25/25 11:03
Troponin I < 0.012 ng/ml 01/25/25 11:03
Impression/Plan
-
Impression/plan:
Admit to MedSurg
#Acute on chronic COPD exacerbation
#Chronic hypoxic respiratory failure oxygen dependent since 01/04/25
#Recent exacerbation COPD 01/04/2025 treated with O2, IV ABX (Rocephin/Zithromax), Decadron 4 mg daily(completed 5-day course of antibiotics and oral steroids inpatient no further meds given on discharge)
- Reported hypoxia today 80-84% at [facility] per daughter Shannan GREWAL
-Currently 100% on 6 L nasal cannula will titrate down due to CO2 retention
- If any change in mental status obtain Stat ABG
-IV dexamethasone 2 mg given in ER will continue, Decadron 4 mg every 12 hours
- Continue DuoNebs 4 times daily and as needed
- Continue Trelegy Ellipta or equivalent
-Will start IV Rocephin and IV doxycycline which would cover chest and right lower extremity suspected cellulitis
Will eventually need reevaluation walking pulse oximetry before discharge to evaluate O2 level needed
- PT/OT/case management consult
-01/04/[address] : 1. There is complete opacification of the right middle lobe bronchus with associated right middle lobe collapse. Findings may be secondary to endobronchial lesion or mucous plugging.
2. Consider bronchoscopy for further evaluation.
3. Moderate apical predominant emphysematous changes with scattered nodular consolidations and groundglass opacities involving the right upper and bilateral lower lobes which likely represents
multifocal pneumonia. There is additional bronchial wall thickening and mucoid impaction, likely endobronchial infection. Recommend follow-up CT chest to ensure resolution.
4. The right hilum is asymmetrically prominent which may be vascular in nature or represent an enlarged lymph node.
#Prior nicotine abuse
35 years 1 pack a day stopped 20 years ago
#Right lower leg cellulitis with edema
-Weeping from +3 pedal edema
Check venous duplex right lower leg due to erythema and swelling
-Consult wound care
-IV Rocephin IV doxycycline currently covering pulmonary which would cross cover right leg cellulitis
#Newly discovered right middle lobe opacification with right middle lobe collapse. Opacities involving right upper and bilateral lobes consolidation on 01/04/2025 admission
- Per admission note on 01/08/2025 family did not want to pursue evaluation with bronchoscopy for possible cancer given opacifications
Chest CT : There is complete opacification of the right middle lobe bronchus with associated right middle lobe collapse. Findings may be secondary to endobronchial lesion or mucous plugging.
Consider bronchoscopy for further evaluation.
Moderate apical predominant emphysematous changes with scattered nodular consolidations and groundglass opacities involving the right upper and bilateral lower lobes which likely
represents multifocal pneumonia. There is additional bronchial wall thickening and mucoid impaction, likely endobronchial infection. Recommend follow-up CT chest to ensure resolution.
The right hilum is asymmetrically prominent which may be vascular in nature or represent an enlarged lymph node.
#Chronic mild cognitive impairment
Patient oriented to name, daughter Shannan at bedside, daughter Roxie and son Dawson is unsure of current symptoms this morning and her medical history
#Paroxysmal Atrial Fibrillation
-Continue Eliquis 5 mg twice daily for anticoagulation
-Continue diltiazem 180 mg every afternoon for rate control
#Essential Hypertension
-Continue lisinopril with hold parameters
#Hyperlipidemia
-Continue rosuvastatin
#Depression
-Continue mirtazapine
#Prior daily alcohol use 1 glass wine quit 20 years ago
Insomnia
Continue mirtazapine 15 mg at bedtime
#Chronic ambulatory dysfunction
- Uses rollator or walker at baseline
DVT proph: Eliquis
DNR per patient with daughter Shannan valiente POAdrianne at bedside, son Dawson at bedside prior other Sister Roxie was at bedside
[2025-01-25] MEDS: DUONEB INH (16:43)
--- NOTE | 2025-01-25 17:37 | PTCARENOTE ---
Patient admitted from ER into room 412-02. Vital signs stable. Oriented to room, and use of call perkins and TV and bed controls. Patient verbalizes understanding of teaching and denies questions at this time. Assisted patient with ordering dinner.
Patient resting comfortably in chair at this time waiting for dinner.
[2025-01-25] MEDS: CARDIZEM CD 180 MG PO (19:23)
[2025-01-25] MEDS: ROCEPHIN 1000 MG IV (19:23)
[2025-01-25] MEDS: STERILE WATER FOR INJECTION 10 ML IV (19:24)
[2025-01-25] MEDS: FLUSH (NSS) 2 FLUSH IV (19:24)
[2025-01-25 20:06] LABS: Procalcitonin 0.16 ng/ml (0.0-0.25)
[2025-01-25] MEDS: VIBRAMYCIN 100 MG PO (20:15)
[2025-01-25] MEDS: REFRESH CELLUVISC GEL 1 DROPS BOTH EYES (20:15)
[2025-01-25] MEDS: ELIQUIS 5 MG PO (20:15)
[2025-01-25] MEDS: DECADRON 4 MG IV (22:30)
[2025-01-25] MEDS: REMERON 15 MG PO (22:30)
[2025-01-26 06:00] VITALS: BMI 27.3
--- NOTE | 2025-01-26 08:14 | VNURNOTE ---
Chart reviewed. Patient is current with [facility] nursing, OT, PT. Will continue to follow hospital course and DC plans.
[2025-01-26] MEDS: SPIRIVA RESPIMAT 2.5 MCG 2 PUFF INH (08:18)
[2025-01-26] MEDS: VENTOLIN NEBULES INH ×2 (08:18→08:39)
[2025-01-26] MEDS: STRIVERDI RESPIMAT 2 PUFF INH (08:19)
[2025-01-26 08:25] VITALS: BP 131/63
[2025-01-26 08:47] LABS: % Basophils 0.2 % (0-2); % Immature Granulocytes 1.4 % (0-0.5); % Lymphocytes 6.6 % (20.5-51.1); % Monocytes 2.5 % (1.7-9.3); % Neutrophils 89.3 % (42.2-75.2); Absolute Immature Granulocytes 0.1 10^3/uL (0-0.05); Absolute Lymphocytes 0.3 10^3/uL (1.2-3.4); Absolute Monocytes 0.1 10^3/uL (0.1-0.6); Absolute Neutrophils 4.3 10^3/uL (1.4-6.5); Hematocrit 29.7 % (37.0-47.0); Hemoglobin 9.8 g/dL (12.0-16.0); Mean Corpuscular Hgb 28.7 pg (27.0-31.0); Mean Corpuscular Volume 86.8 fL (81.0-99.0); Mean Platelet Volume 9.2 fL (7.4-10.4); Nucleated Red Blood Cells % 0 %; Platelet Count 206 10^3/uL (130-400); Red Blood Cell Count 3.42 10^6/uL (4.20-5.40); Red Cell Dist. Width 16.5 % (11.5-14.5); White Blood Cell Count 4.9 10^3/uL (4.8-10.8)
--- NOTE | 2025-01-26 09:08 | CON.PUL ---
Consultation
Consultation Request
Date/Time Consultation Requested: 01/26/25
Date/Time Consultation Performed: 01/26/25
Performing Provider: Odilon
Reason for Consultation: SOB
Medical History
-
History of Present Illness:
Patient is an 89-year-old female with previous history of PAF, hypertension, COPD presenting to ER from [facility] for shortness of breath and hypoxemia. She had recently been admitted for similar and discharged on 01/09/2025 with abnormal chest
x-ray needing bronchoscopic evaluation. They had declined invasive procedures at that time. She has ongoing shortness of breath, notably desaturated at her half-way to 80-84%. She notes that she did not want any further testing or evaluation
but was sent in by her family for diagnostic testing. She has outright declined any treatment while inpatient.
Past Medical History
Past Medical History: Other (see list below)
Social History
Tobacco: Non-smoker
Alcohol: None
Drug: None
Family History
Family History: Reviewed & Not Pertinent
Allergies / Home Medications
Allergies
Allergy/AdvReac Type Severity Reaction Status Date / Time
animal dander Allergy Unknown Verified 01/04/25 14:32
morphine Allergy nausea and Verified 01/04/25 14:32
vomiting
peanut Allergy Unknown Verified 01/04/25 14:32
prednisone AdvReac Toxic Verified 01/04/25 14:32
metabolic
encephalopathy
Home Medications
�Medication �Instructions �Recorded �Confirmed �Last Taken �Type
diltiazem HCl 180 mg 180 mg PO QPM Blood pressure 02/27/22 01/25/25 09/27/24 History
capsule,extended release 24 hr
lisinopril 5 mg tablet 5 mg PO DAILY Blood pressure 02/27/22 01/25/25 09/27/24 History
albuterol sulfate 90 mcg/actuation 1 inh inhalation R Q4HPRN PRN sob 12/23/24 01/25/25 Unknown History
aerosol inhaler
azelastine 137 mcg (0.1 %) nasal 1 spray intranasal DAILY Congestion 01/04/25 01/25/25 Unknown History
spray
cholecalciferol (vitamin D3) 50 50 mcg PO DAILY Supplement 01/04/25 01/25/25 Unknown History
mcg (2,000 unit) capsule (Vitamin
D3)
vitamins A,C,G-nlyw-buwoud 2,148 2 tab PO DAILY Supplement 01/04/25 01/25/25 Unknown History
mcg-113 mg-45 mg-17.4 mg tablet
(PreserVision AREDS)
apixaban 5 mg tablet (Eliquis) 5 mg PO BID Blood clot 01/09/25 01/25/25 09/27/24 Rx
prevention/tx #0 tabs
bisacodyl 10 mg rectal suppository 10 mg MA DAILYPRN PRN IF NO BM 01/25/25 01/25/25 Unknown History
(Dulcolax (bisacodyl)) AFTR MOM
carboxymethylcellulose 0.5 1 drp BOTH EYES BID Eye Condition 01/25/25 01/25/25 Unknown History
%-glycerin 0.9 % eye drops
(Refresh Optive)
ipratropium 0.5 mg-albuterol 3 mg 3 ml inhalation R TID 01/25/25 01/25/25 Unknown History
(2.5 mg base)/3 mL nebulization Lung/Breathing Issues
soln
magnesium hydroxide 400 mg/5 mL 2,400 mg PO DAILYPRN PRN IF NO BM 01/25/25 01/25/25 Unknown History
oral suspension (Milk of Magnesia) BY 2ND DAY
mirtazapine 15 mg tablet 15 mg PO HS Sleep 01/25/25 01/25/25 Unknown History
sodium phosphates 19 gram-7 118 ml MA DAILYPRN PRN IF NO BM 01/25/25 01/25/25 Unknown History
gram/118 mL enema (Fleet Enema) AFTR DULCOLAX
umeclidinium 62.5 mcg-vilanterol 1 inh inhalation R DAILY 01/25/25 01/25/25 Unknown History
25 mcg/actuation powdr for Lung/Breathing Issues
inhalation (Anoro Ellipta)
Review of Systems
-
History Source: Patient
All other systems: Negative unless noted
Vitals / Labs / Diagnostic Testing
Vital Signs
Temp Pulse Resp BP Pulse Ox
97.5 F 96 16 131/63 94
01/26/25 08:25 01/26/25 08:44 01/26/25 08:44 01/26/25 08:25 01/26/25 08:44
Lab Data
01/26/25 07:28
Microbiology
01/25/25 10:18 Nasal Swab Influenza Types A & B (ANA ROSA) - Final
Negative for Influenza A & B, NAAT
Negative results must be combined with clinical observations
and patient history.
Nucleic Acid Amplification test (NAAT)performed on the
[employer] platform.
Diagnostic Testing:
Physical Exam
-
HEENT: Normocephalic, Anicteric and Moist Mucous Membranes
Cardiovascular: S1/S2 and Regular Rhythm
Respiratory: Clear and Non-Labored Respirations
GI: Soft, Non Distended and Non Tender
Neurology: Awake, Alert, Oriented and No Motor Deficits
Skin: Warm, Dry and Good Color
General: Comfortable and Other (NAD)
Assessment
-
Patient is an 89-year-old female with previous history of PAF, hypertension, COPD presenting to ER from [facility] for shortness of breath and hypoxemia. She had recently been admitted for similar and discharged on 01/09/2025 with abnormal chest
x-ray needing bronchoscopic evaluation. They had declined invasive procedures at that time. She has ongoing shortness of breath, notably desaturated at her half-way to 80-84%. She notes that she did not want any further testing or evaluation
but was sent in by her family for diagnostic testing. She has outright declined any treatment while inpatient.
Acute hypoxic respiratory failure
Acute on chronic shortness of breath
Abnormal CT scan
Conditions present prior to admission
PAF on Eliquis
Hypertension
Hyperlipidemia
Plan
Hypoxemia noted on arrival, O2 kvng 80-84%
Currently saturating 99% on 4L NC
Home O2 evaluation
Prior history of lung disease is noted including COPD, but no prior PFTs for review
She has declined testing, she currently has declined PFT testing for me
Does not wish to perform IS/acapella, vest
CXR/CT obtained indicating possible RML collapse on prior CT, but her current CXR does not show any changes
We discussed bronchoscopic evaluation but she has again declined
Speech evaluation obtained
She has declined VSE
I am not sure what more we can offer patient here, she clearly understands her issues and wishes to be placed in hospice
She reports her family may not want to hear that
Recommend hospice consult
I discussed this [facility] care [facility], will need to have a family mtg and avoid readmissions for patient refusal to treat
We will sign off at this time, please call with questions
Diagnostic Data
Chest X-Ray: 01/25/25- . Hazy opacity within the right upper lung zone, likely corresponding to a focus of groundglass opacity within the right upper lobe on recent prior chest CT dated 01/04/2025. Additional tree-in-bud opacities were seen on each
side on prior chest CT, and overall findings are most suggestive of atypical infection with endobronchial spread.
2. Findings suggestive of COPD.
01/04/25- No acute cardiopulmonary abnormality.
CT Chest 01/04/2025: There is complete opacification of the right middle lobe bronchus with associated right middle lobe collapse. Findings may be secondary to endobronchial lesion or mucous plugging. Consider bronchoscopy for further evaluation.
Moderate apical predominant emphysematous changes with scattered nodular consolidations and groundglass opacities involving the right upper and bilateral lower lobes which likely represents multifocal pneumonia. There is additional bronchial wall
thickening and mucoid impaction, likely endobronchial infection. Recommend follow-up CT chest to ensure resolution.
The right hilum is asymmetrically prominent which may be vascular in nature or represent an enlarged lymph node.
ECHO 02/2022: Normal left ventricular size, wall thickness and systolic function. LV ejection fraction is 75%.
Mild to moderate mitral stenosis. Mild mitral regurgitation. Mild aortic stenosis.
PFT's:
Reports and relevant images were personally reviewed.
Total time spent on this consultation __55__ minutes which includes review of history, physical exam, medications, laboratory data, personal review of imaging, extensive review of outpatient records, discussion with care team and respiratory therapy.
[2025-01-26 09:11] LABS: ALT (SGPT) 41 U/L (0-35); AST (SGOT) 22 U/L (14-36); Alkaline Phosphatase 107 U/L (38-126); Blood Urea Nitrogen 19 mg/dl (7-17); Calcium 8.7 mg/dl (8.4-10.2); Carbon Dioxide 32 mmol/L (22-30); Chloride 97 mmol/L (98-107); Estimated Creatinine Clearance 61 ml/min; Glucose 212 mg/dl (70-99); Potassium 4.8 mmol/L (3.5-5.1); Sodium 138 mmol/L (135-145); Total Bilirubin 0.4 mg/dl (0.2-1.3); Total Protein 5.5 g/dl (6.3-8.2); eGFR > 60.00
[2025-01-26] MEDS: MUCINEX 600 MG PO ×2 (09:21→20:40)
[2025-01-26] MEDS: REFRESH CELLUVISC GEL 1 DROPS BOTH EYES ×2 (09:21→20:40)
[2025-01-26] MEDS: VIBRAMYCIN 100 MG PO ×2 (09:21→20:40)
[2025-01-26] MEDS: OCUVITE SOFTGEL 2 CAP PO (09:22)
[2025-01-26] MEDS: VITAMIN D3 (cholecalciferol) 50 MCG PO (09:22)
[2025-01-26] MEDS: ELIQUIS 5 MG PO ×2 (09:22→20:40)
[2025-01-26] MEDS: DECADRON 4 MG IV ×2 (09:23→20:40)
[2025-01-26] MEDS: FLAGYL 500 MG 100 IV ×3 (09:23→23:09)
[2025-01-26] MEDS: ZESTRIL 5 MG PO (09:23)
--- NOTE | 2025-01-26 09:51 | WOUNDNOTE ---
R CALF/ANKLE (MEDIAL)
--- NOTE | 2025-01-26 09:55 | WOUNDNOTE ---
[facility] RN note: Patient admitted with acute on chronic COPD. Patient current with VN.
See H&P for complete history.
PMH: mild cognitive impairment, COPD (uses o2), a fib (Eliquis), HTN, declined workup for lung opacity.
Wound Location and type/assessment: Patient admitted with: R medial lower calf skin tear with brown fibrin. Trace LE edema. +Palpable pedal pulses. Posterior thigh scattered small scabs suspect from bs commode use. Skin on Le's very dry (dermatis
appearing). Pinpoint dry scabs on R 2nd and 4th and L 2nd and 3rd toe tips. L lateral ankle callus. Patient declined any lotions or topical wound care.
Appetite: good.
Pressure redistribution devices in place: [employer] Accumax. Patient stood with walker for sacral skin check.
Plan: Air chair cushion given. Patient declined any knee high compression. She stated she is allergy to everything.
Will update hospitalist and discussed with MILENA Escamilla.
Care plan to be updated. Will sign off. Call for questions.
Recommend follow up at wound care center upon discharge if needed.
[2025-01-26 10:14] LABS: Venous Blood Gas B.E. 5.9 mmol/L (-4 to +4); Venous Blood Gas HCO3 33.2 mmol/L (22-27); Venous Blood Gas O2 Sat % 70.9 %; Venous Blood Gas pCO2 63 mmHg (35-48); Venous Blood Gas pH 7.33 (7.32-7.43); Venous Blood Gas pO2 43 mmHg (30-50)
[2025-01-26 10:56] VITALS: BP 139/53; PULSE 72; O2SAT 98
[2025-01-26] MEDS: VENTOLIN NEBULES 2.5 MG INH ×3 (11:16→19:58)
--- NOTE | 2025-01-26 12:39 | CM ---
Patient seen bedside w/ hospitalist, initial assessment completed. Recent admission (01/04-01/09). Patient is a 89-year-old female from [facility] rehab where she has been since 01/09/25 after a recent admission for COPD exacerbation with multifocal
pneumonia requiring addition of 2 L chronic oxygen due to desaturation with walking.
Patient resides alone at [facility]. Independent w/ use of RW for ambulation, patient has several canes but prefers to use RW primarily. Patient has grab bar, patient does not have home O2. Patient has supportive daughters that
assist w/ groceries, driving, and medication management. Patient recently at [facility], current w/ [facility].
PCP: Alessia Chapman
Pharmacy: [facility]
Therapy assessed patient and recommending skilled rehab. Discussed w/ patient who prefers CM to discuss w/ either daughters, Reyes or Shannan.
CM spoke w/ daughter, Reyes who shared she is patient's financial POA and her sister is the medical POA. Reyes shared that there are plans for patient to move to the [facility] [place], her belongings are due to be moved out of [facility] on
Wednesday. Reyes shared that she didn't think patient would be going to SNF as she was told from [facility] that patient can receive therapy there and they can accept her at any level. CM shared [facility] doesn't have a skilled rehab unit and sometimes it
does depend on a facility on if they prefer a resident to get skilled therapy prior to returning. Reyes stated that patient did enjoy [facility], she was there for almost 3 weeks and doesn't feel like patient progressed. She shared that she wants
what's best for patient but patient gets exhausted and doesn't want her to continue getting skilled therapy. Reyes stated her sister is due to have a meeting today w/ a nurse at the [facility] and will ask if they prefer patient to go to rehab prior
to moving in or if they can provide therapy w/ their provider, Juan F andrade.
Updated admissions to add patient's daughter, Shannan, as primary contact
Plan: Daughter will confirm w/ the [facility] if patient should d/c to rehab or admit w/ [facility] for home therapy
--- NOTE | 2025-01-26 15:26 | W.PN.HOSP.TC ---
Today's Communication/Plan
-
Hospice talks with [facility]
Assessment / Plan
Assessment / Plan
89-year-old female was admitted here early January 2025 for COPD exacerbation she was sent to [facility] from where she was supposed to go to [facility] living however had trouble breathing and sats were low. Patient was found to have a
right middle lobe bronchus opacification with right lower lobe collapse secondary to endobronchial lesion or mucous plugging at that time family did not want to pursue any evaluation understanding the possibility of cancer or mass.
CT chest 01/04/2025-complete opacification of the right middle lobe bronchus with associated right middle lobe collapse findings may be secondary to endobronchial lesion or mucous plugging. Consider bronchoscopy. Moderate apical predominant
emphysematous changes with scattered nodular consolidations and groundglass opacities involving right upper and bilateral lower lobes representing multifocal pneumonia. Additional bronchial wall thickening and mucoid impaction likely endobronchial
infection. Right hilum is asymmetrically prominent
CVS: S1-S2 normal
Chest: Rales at right base, decreased breath sounds
Abdomen: Soft, NT
Extremities: Bilateral edema, small ulcer in the right samuels
# COPD exacerbation
Chronic hypoxic respiratory failure on oxygen since 01/04/2025
Recently admitted to [facility] for COPD exacerbation from 01/04/2054 825
Continue steroids
Antibiotic started again
Will request pulmonary evaluation
Patient is on Anoro Ellipta DuoNebs as outpatient
Patient was started on ceftriaxone and doxycycline. Add Flagyl
Speech therapy evaluation requested. Patient declined
Suspect ongoing aspiration
Discussed with the patient's daughter. She thought there was a do not hospitalize order but she realized there was not 1 she is agreeable to hospice discussions and possibly discharging to [facility] on hospice.
# Cognitive impairment
# Paroxysmal atrial fibrillation-continue Cardizem and Eliquis
# Essential hypertension-continue lisinopril, Cardizem
# Hyperlipidemia-continue statin
# Chronic ambulate dysfunction-uses walker
# Depression/insomnia-continue mirtazapine
# DVT prophylaxis-Eliquis
# DNR
Discussed with case management
Discussed with patient's daughter on the phone who is power of third officer. Discussed about recurrent admissions to the hospital and patient not wanting to do anything. She also mentioned that she just wants to go. Hospice brought up. Possible
ongoing aspiration versus lung mass. Patient does not want any further workup even if something was found in the lung patient would not want any treatment per daughter.
Anticipated Discharge: Within 24 hours
Subjective/Interval History
-
Date of Service: January 26, 2025
Objective Data
-
Labs:
Laboratory Results
01/26/25
07:28
WBC 4.9
Hgb 9.8 L
Hct 29.7 L
Plt Count 206
Sodium 138
Potassium 4.8
Chloride 97 L
Carbon Dioxide 32 H
BUN 19 H
Creatinine 0.6
Glucose 212 H
Calcium 8.7
Total Bilirubin 0.4
AST 22
ALT 41 H
Alkaline Phosphatase 107
Vital Signs:
Vital Signs
Temp Pulse Resp BP Pulse Ox
97.5 F 95 16 131/63 94
01/26/25 08:25 01/26/25 11:20 01/26/25 11:20 01/26/25 09:23 01/26/25 11:20
I&O
01/25/25 01/26/25 01/27/25
06:59 06:59 06:59
Intake Total 240 / 240
Balance 240 / 240
[2025-01-26 16:15] VITALS: BP 98/55
[2025-01-26] MEDS: ROCEPHIN 1000 MG IV (17:06)
[2025-01-26] MEDS: STERILE WATER FOR INJECTION 10 ML IV (17:06)
[2025-01-26] MEDS: CARDIZEM CD PO (17:11)
[2025-01-26] MEDS: REMERON 15 MG PO (20:40)
[2025-01-26 23:03] VITALS: BP 144/61
[2025-01-27 07:13] LABS: % Basophils 0.1 % (0-2); % Immature Granulocytes 0.9 % (0-0.5); % Lymphocytes 3.9 % (20.5-51.1); % Neutrophils 92.1 % (42.2-75.2); Absolute Immature Granulocytes 0.1 10^3/uL (0-0.05); Absolute Lymphocytes 0.4 10^3/uL (1.2-3.4); Absolute Monocytes 0.3 10^3/uL (0.1-0.6); Absolute Neutrophils 8.3 10^3/uL (1.4-6.5); Hematocrit 32.6 % (37.0-47.0); Hemoglobin 10.3 g/dL (12.0-16.0); Mean Corp Hgb Conc. 31.6 g/dL (33.0-37.0); Mean Corpuscular Hgb 27.7 pg (27.0-31.0); Mean Corpuscular Volume 87.6 fL (81.0-99.0); Mean Platelet Volume 9.1 fL (7.4-10.4); Nucleated Red Blood Cells % 0 %; Platelet Count 306 10^3/uL (130-400); Red Blood Cell Count 3.72 10^6/uL (4.20-5.40); Red Cell Dist. Width 16.3 % (11.5-14.5)
[2025-01-27 07:29] LABS: ALT (SGPT) 39 U/L (0-35); AST (SGOT) 21 U/L (14-36); Alkaline Phosphatase 106 U/L (38-126); Blood Urea Nitrogen 29 mg/dl (7-17); Calcium 9.2 mg/dl (8.4-10.2); Carbon Dioxide 33 mmol/L (22-30); Chloride 98 mmol/L (98-107); Estimated Creatinine Clearance 52 ml/min; Glucose 302 mg/dl (70-99); Potassium 4.7 mmol/L (3.5-5.1); Sodium 137 mmol/L (135-145); Total Bilirubin 0.3 mg/dl (0.2-1.3); Total Protein 5.6 g/dl (6.3-8.2); eGFR > 60.00
[2025-01-27 07:50] VITALS: BP 126/46
[2025-01-27] MEDS: STRIVERDI RESPIMAT INH ×2 (08:06→08:13)
[2025-01-27] MEDS: SPIRIVA RESPIMAT 2.5 MCG 2 PUFF INH (08:06)
[2025-01-27] MEDS: VENTOLIN NEBULES 2.5 MG INH ×3 (08:07→15:35)
[2025-01-27] MEDS: FLAGYL 500 MG 100 IV ×2 (09:18→16:24)
[2025-01-27] MEDS: OCUVITE SOFTGEL 2 CAP PO (09:19)
[2025-01-27] MEDS: DECADRON 4 MG IV ×2 (09:19→21:25)
[2025-01-27] MEDS: REFRESH CELLUVISC GEL 1 DROPS BOTH EYES ×2 (09:19→21:25)
[2025-01-27] MEDS: VIBRAMYCIN 100 MG PO ×2 (09:19→21:25)
[2025-01-27] MEDS: MUCINEX 600 MG PO ×2 (09:19→21:25)
[2025-01-27] MEDS: ZESTRIL 5 MG PO (09:19)
[2025-01-27] MEDS: ELIQUIS 5 MG PO ×2 (09:19→21:25)
[2025-01-27] MEDS: VITAMIN D3 (cholecalciferol) 50 MCG PO (09:20)
--- NOTE | 2025-01-27 14:38 | W.PN.HOSP.TC ---
Today's Communication/Plan
-
discharge when [facility] can accept
Assessment / Plan
Assessment / Plan
89-year-old female was admitted here early January 2025 for COPD exacerbation she was sent to [facility] from where she was supposed to go to [facility] living however had trouble breathing and sats were low. Patient was found to have a
right middle lobe bronchus opacification with right lower lobe collapse secondary to endobronchial lesion or mucous plugging at that time family did not want to pursue any evaluation understanding the possibility of cancer or mass.
CT chest 01/04/2025-complete opacification of the right middle lobe bronchus with associated right middle lobe collapse findings may be secondary to endobronchial lesion or mucous plugging. Consider bronchoscopy. Moderate apical predominant
emphysematous changes with scattered nodular consolidations and groundglass opacities involving right upper and bilateral lower lobes representing multifocal pneumonia. Additional bronchial wall thickening and mucoid impaction likely endobronchial
infection. Right hilum is asymmetrically prominent
CVS: S1-S2 normal
Chest: Rales at right base, decreased breath sounds
Abdomen: Soft, NT
Extremities: Bilateral edema, small ulcer in the right samuels
# COPD exacerbation
Chronic hypoxic respiratory failure on oxygen since 01/04/2025
Recently admitted to [facility] for COPD exacerbation from 01/04/2054 825
Continue steroids
Antibiotics started again
Will request pulmonary evaluation
Patient is on Anoro Ellipta, DuoNebs as outpatient
Patient was started on ceftriaxone and doxycycline. Add Flagyl
Speech therapy evaluation requested. Patient declined
Suspect ongoing aspiration
Patient refusing to wear Tubigrips or Yordy bandages
Discussed with the patient's daughter. She thought there was a do not hospitalize order but she realized there was not 1 she is agreeable to hospice discussions and possibly discharging to [facility] on hospice.
# Cognitive impairment
# Paroxysmal atrial fibrillation-continue Cardizem and Eliquis
# Essential hypertension-continue lisinopril, Cardizem
# Hyperlipidemia-continue statin
# Chronic ambulate dysfunction-uses walker
# Depression/insomnia-continue mirtazapine
# DVT prophylaxis-Eliquis
# DNR
Discussed with case management
[facility] can accept pt wednesday
Anticipated Discharge: 24 - 48 hours
Subjective/Interval History
-
Date of Service: January 27, 2025
Objective Data
-
Labs:
Laboratory Results
01/27/25
06:44
WBC 9.0
Hgb 10.3 L
Hct 32.6 L
Plt Count 306 D
Sodium 137
Potassium 4.7
Chloride 98
Carbon Dioxide 33 H
BUN 29 H
Creatinine 0.7
Glucose 302 H
Calcium 9.2
Total Bilirubin 0.3
AST 21
ALT 39 H
Alkaline Phosphatase 106
Vital Signs:
Vital Signs
Temp Pulse Resp BP Pulse Ox
97.8 F 110 18 126/46 97
01/27/25 07:50 01/27/25 11:22 01/27/25 11:22 01/27/25 09:19 01/27/25 13:50
I&O
01/26/25 01/27/25 01/28/25
06:59 06:59 06:59
Intake Total 240 / 240 720 / 720
Balance 240 / 240 720 / 720
[2025-01-27 15:50] VITALS: BP 112/63
[2025-01-27] MEDS: ROCEPHIN 1000 MG IV (17:25)
[2025-01-27] MEDS: CARDIZEM CD PO (17:25)
[2025-01-27] MEDS: STERILE WATER FOR INJECTION 10 ML IV (17:25)
[2025-01-27] MEDS: VENTOLIN NEBULES INH (19:09)
[2025-01-27] MEDS: REMERON 15 MG PO (21:25)
[2025-01-27 23:38] VITALS: BP 154/61
[2025-01-28 00:38] VITALS: BP 154/61
[2025-01-28] MEDS: FLAGYL 500 MG IV (04:13)
[2025-01-28 06:00] VITALS: BMI 27.5
[2025-01-28 07:16] LABS: % Basophils 0.2 % (0-2); % Immature Granulocytes 1.3 % (0-0.5); % Lymphocytes 4.8 % (20.5-51.1); % Monocytes 4.5 % (1.7-9.3); % Neutrophils 89.2 % (42.2-75.2); Absolute Immature Granulocytes 0.1 10^3/uL (0-0.05); Absolute Lymphocytes 0.5 10^3/uL (1.2-3.4); Absolute Monocytes 0.5 10^3/uL (0.1-0.6); Absolute Neutrophils 9.3 10^3/uL (1.4-6.5); Hematocrit 31.9 % (37.0-47.0); Hemoglobin 10.1 g/dL (12.0-16.0); Mean Corp Hgb Conc. 31.7 g/dL (33.0-37.0); Mean Corpuscular Hgb 27.7 pg (27.0-31.0); Mean Corpuscular Volume 87.4 fL (81.0-99.0); Mean Platelet Volume 8.9 fL (7.4-10.4); Nucleated Red Blood Cells % 0 %; Platelet Count 349 10^3/uL (130-400); Red Blood Cell Count 3.65 10^6/uL (4.20-5.40); Red Cell Dist. Width 16.2 % (11.5-14.5); White Blood Cell Count 10.4 10^3/uL (4.8-10.8)
[2025-01-28] MEDS: VENTOLIN NEBULES 2.5 MG INH ×4 (07:18→19:14)
[2025-01-28] MEDS: SPIRIVA RESPIMAT 2.5 MCG 2 PUFF INH (07:19)
[2025-01-28] MEDS: STRIVERDI RESPIMAT 2 PUFF INH (07:19)
[2025-01-28 07:37] LABS: ALT (SGPT) 44 U/L (0-35); AST (SGOT) 27 U/L (14-36); Alkaline Phosphatase 107 U/L (38-126); Blood Urea Nitrogen 28 mg/dl (7-17); Carbon Dioxide 32 mmol/L (22-30); Chloride 99 mmol/L (98-107); Estimated Creatinine Clearance 61 ml/min; Glucose 206 mg/dl (70-99); Sodium 138 mmol/L (135-145); Total Bilirubin 0.4 mg/dl (0.2-1.3); Total Protein 5.5 g/dl (6.3-8.2); eGFR > 60.00
[2025-01-28 07:55] VITALS: BP 121/58
[2025-01-28] MEDS: FLAGYL 500 MG 100 IV ×3 (09:31→23:31)
[2025-01-28] MEDS: OCUVITE SOFTGEL 2 CAP PO (09:31)
[2025-01-28] MEDS: REFRESH CELLUVISC GEL 1 DROPS BOTH EYES ×2 (09:31→22:15)
[2025-01-28] MEDS: ELIQUIS 5 MG PO ×2 (09:32→22:04)
[2025-01-28] MEDS: MUCINEX 600 MG PO ×2 (09:32→22:04)
[2025-01-28] MEDS: DECADRON 4 MG IV ×2 (09:32→22:16)
[2025-01-28] MEDS: VIBRAMYCIN 100 MG PO ×2 (09:32→22:09)
[2025-01-28] MEDS: VITAMIN D3 (cholecalciferol) 50 MCG PO (09:32)
[2025-01-28] MEDS: ZESTRIL 5 MG PO (09:32)
[2025-01-28 15:55] VITALS: BP 127/60
--- NOTE | 2025-01-28 16:05 | W.PN.HOSP.TC ---
Today's Communication/Plan
-
Discharge to [facility] Wednesday
Assessment / Plan
Assessment / Plan
89-year-old female was admitted here early January 2025 for COPD exacerbation she was sent to [facility] from where she was supposed to go to [facility] independent living however had trouble breathing and sats were low. Patient was found to have a
right middle lobe bronchus opacification with right lower lobe collapse secondary to endobronchial lesion or mucous plugging at that time family did not want to pursue any evaluation understanding the possibility of cancer or mass.
CT chest 01/04/2025-complete opacification of the right middle lobe bronchus with associated right middle lobe collapse findings may be secondary to endobronchial lesion or mucous plugging. Consider bronchoscopy. Moderate apical predominant
emphysematous changes with scattered nodular consolidations and groundglass opacities involving right upper and bilateral lower lobes representing multifocal pneumonia. Additional bronchial wall thickening and mucoid impaction likely endobronchial
infection. Right hilum is asymmetrically prominent
CVS: S1-S2 normal
Chest: Rales at right base, decreased breath sounds
Abdomen: Soft, NT
Extremities: Bilateral edema, small ulcer in the right samuels
# COPD exacerbation
Chronic hypoxic respiratory failure on oxygen since 01/04/2025
Recently admitted to [facility] for COPD exacerbation from 01/04/2054 825
Continue steroids
Antibiotics started again
Will request pulmonary evaluation
Patient is on Anoro Ellipta, DuoNebs as outpatient
Patient was started on ceftriaxone and doxycycline. Added Flagyl
Speech therapy evaluation requested. Patient declined
Suspect ongoing aspiration
Patient refusing to wear Tubigrips or Yordy bandages
Discussed with the patient's daughter. Hospice at [facility]
# Cognitive impairment
# Paroxysmal atrial fibrillation-continue Cardizem and Eliquis
# Essential hypertension-continue lisinopril, Cardizem
# Hyperlipidemia-continue statin
# Chronic ambulate dysfunction-uses walker
# Depression/insomnia-continue mirtazapine
# DVT prophylaxis-Eliquis
# DNR
D/W RN
Anticipated Discharge: Within 24 hours
Subjective/Interval History
-
Date of Service: January 28, 2025
Objective Data
-
Labs:
Laboratory Results
01/28/25
06:42
WBC 10.4
Hgb 10.1 L
Hct 31.9 L
Plt Count 349
Sodium 138
Potassium 5.0
Chloride 99
Carbon Dioxide 32 H
BUN 28 H
Creatinine 0.6
Glucose 206 H
Calcium 9.0
Total Bilirubin 0.4
AST 27
ALT 44 H
Alkaline Phosphatase 107
Vital Signs:
Vital Signs
Temp Pulse Resp BP Pulse Ox
97.3 F 88 18 121/58 97
01/28/25 07:55 01/28/25 15:31 01/28/25 15:31 01/28/25 07:55 01/28/25 15:31
I&O
01/27/25 01/28/25 01/29/25
06:59 06:59 06:59
Intake Total 720 / 720 1939
Balance 720 / 720 1939
[2025-01-28] MEDS: ROCEPHIN 1000 MG IV (17:50)
[2025-01-28] MEDS: CARDIZEM CD 180 MG PO (17:50)
[2025-01-28] MEDS: STERILE WATER FOR INJECTION 10 ML IV (17:50)
[2025-01-28] MEDS: REMERON 15 MG PO (22:10)
[2025-01-28] MEDS: FLUSH (NSS) 2 FLUSH IV ×2 (22:18→23:31)
[2025-01-28 23:29] VITALS: BP 163/85
[2025-01-29 05:43] VITALS: BMI 27.6
[2025-01-29] MEDS: SPIRIVA RESPIMAT 2.5 MCG 2 PUFF INH (07:47)
[2025-01-29] MEDS: STRIVERDI RESPIMAT 2 PUFF INH (07:48)
[2025-01-29] MEDS: VENTOLIN NEBULES 2.5 MG INH ×3 (07:48→15:25)
[2025-01-29] MEDS: ZESTRIL PO (08:13)
[2025-01-29] MEDS: OCUVITE SOFTGEL 2 CAP PO (08:18)
[2025-01-29] MEDS: VIBRAMYCIN 100 MG PO (08:18)
[2025-01-29] MEDS: REFRESH CELLUVISC GEL 1 DROPS BOTH EYES (08:19)
[2025-01-29] MEDS: FLAGYL 500 MG IV ×2 (08:19→10:21)
[2025-01-29] MEDS: ELIQUIS 5 MG PO (08:19)
[2025-01-29] MEDS: FLUSH (NSS) 2 FLUSH IV (08:19)
[2025-01-29] MEDS: VITAMIN D3 (cholecalciferol) 50 MCG PO (08:19)
[2025-01-29] MEDS: MUCINEX 600 MG PO (08:19)
[2025-01-29 08:33] VITALS: BP 89/63
[2025-01-29 08:40] LABS: Hemoglobin 10.7 g/dL (12.0-16.0); Mean Corp Hgb Conc. 31.5 g/dL (33.0-37.0); Mean Corpuscular Hgb 27.8 pg (27.0-31.0); Mean Corpuscular Volume 88.3 fL (81.0-99.0); Mean Platelet Volume 8.8 fL (7.4-10.4); Platelet Count 400 10^3/uL (130-400); Red Blood Cell Count 3.85 10^6/uL (4.20-5.40); Red Cell Dist. Width 16.3 % (11.5-14.5); White Blood Cell Count 11.7 10^3/uL (4.8-10.8)
--- NOTE | 2025-01-29 08:59 | PTCARENOTE ---
patient due for IV flagyl and decadron- IV site leaking- patient refusing to have IV site restarted. Dr Reza made aware. patient is to be discharged today and to take oral medications .
[2025-01-29] MEDS: FLAGYL 500 MG PO (10:18)
[2025-01-29] MEDS: DECADRON 4 MG PO (10:18)
--- NOTE | 2025-01-29 10:50 | CM ---
ERICA spoke w/ Ramon/nurse at [facility] to discuss d/c plan for today. Patient is due to d/c to [facility] as a new resident. Ramon confirmed DME, med list, and hard scripts are needed for new resident admission. ERICA made aware that plan
is for patient to admit today per conversation w/ patient's daughter. [facility] has assessed patient over the weekend, family have signed consents, and are planning to have equipment delivered to the facility to begin services. ERICA
confirmed fax number to send the requesting documents.
CM faxed DME and med list to [facility].
Patient will need ambulance transport due to new O2 needs, forms on chart
[facility] DNR on chart
Updated hospitalist and nurse
Updated patient at bedside, happy to d/c today. IMM verbally reviewed, copy given to patient, copy on chart
[facility]
Report: [phone]- ASK FOR NURSE

Plan: D/c to [facility]. Ambulance transport
[2025-01-29 11:41] LABS: Absolute Neutrophils -Man Diff 10.7 10^3/uL (1.4-6.5); Band Neutrophils 2 % (0-3); Lymphocytes 5 % (20-51); Metamyelocytes 1 % (-); Monocytes 2 % (2-9); Segmented Neutrophils 90 % (42-75)
[2025-01-29 11:42] LABS: Anisocytosis 1+; Hypersegmented Neutrophil 1+; Hypochromasia 1+; Normal RBC Morphology No; Ovalocytes 1+; Platelets Checked Yes; Polychromasia 1+; Total Cells Counted 100
[2025-01-29 12:05] VITALS: BP 172/76
[2025-01-29] MEDS: ZESTRIL 5 MG PO (12:37)
--- NOTE | 2025-01-29 13:07 | W.PN.HOSP.TC ---
Today's Communication/Plan
-
Discharge
Assessment / Plan
Assessment / Plan
89-year-old female was admitted here early January 2025 for COPD exacerbation she was sent to [facility] from where she was supposed to go to [facility] independent living however had trouble breathing and sats were low. Patient was found to have a
right middle lobe bronchus opacification with right lower lobe collapse secondary to endobronchial lesion or mucous plugging at that time family did not want to pursue any evaluation understanding the possibility of cancer or mass.
CT chest 01/04/2025-complete opacification of the right middle lobe bronchus with associated right middle lobe collapse findings may be secondary to endobronchial lesion or mucous plugging. Consider bronchoscopy. Moderate apical predominant
emphysematous changes with scattered nodular consolidations and groundglass opacities involving right upper and bilateral lower lobes representing multifocal pneumonia. Additional bronchial wall thickening and mucoid impaction likely endobronchial
infection. Right hilum is asymmetrically prominent
CVS: S1-S2 normal
Chest: Rales at right base, decreased breath sounds
Abdomen: Soft, NT
Extremities: Bilateral edema, small ulcer in the right samuels
# COPD exacerbation
Chronic hypoxic respiratory failure on oxygen since 01/04/2025
Recently admitted to [facility] for COPD exacerbation from 01/04/2025 till 01/09/25
Continue steroids- PO for taper
Antibiotics started again
Will request pulmonary evaluation
Patient is on Anoro Ellipta, DuoNebs as outpatient
Change AB to Flagyl and Ceftin
Speech therapy evaluation requested. Patient declined
Suspect ongoing aspiration
Patient refusing to wear Tubigrips or Yordy bandages
Discussed with the patient's daughter. Hospice at [facility].
# Cognitive impairment
# Paroxysmal atrial fibrillation-continue Cardizem and Eliquis
# Essential hypertension-continue lisinopril, Cardizem
# Hyperlipidemia-continue statin
# Chronic ambulate dysfunction-uses walker
# Depression/insomnia-continue mirtazapine
# DVT prophylaxis-Eliquis
# DNR
D/W RN
D/W Case management
Assisted living needed paperwork as well as all printed signed prescription for all the medicines. Which was given
More than 30 minutes spent in discharge including
Final examination of the patient
Summarizing hospital stay
Instructions for continuing care to all relevant caregivers
Preparation of discharge records, prescriptions, and referral forms
Total time spent (in minutes): 36 min
Anticipated Discharge: Today
Subjective/Interval History
-
Date of Service: January 29, 2025
Objective Data
-
Labs:
Laboratory Results
01/29/25
07:13
WBC 11.7 H
Hgb 10.7 L
Hct 34.0 L
Plt Count 400
Sodium Cancelled
Potassium Cancelled
Chloride Cancelled
Carbon Dioxide Cancelled
BUN Cancelled
Creatinine Cancelled
Glucose Cancelled
Calcium Cancelled
Total Bilirubin Cancelled
AST Cancelled
ALT Cancelled
Alkaline Phosphatase Cancelled
Vital Signs:
Vital Signs
Temp Pulse Resp BP Pulse Ox
98.1 F 98 16 172/76 98
01/29/25 08:33 01/29/25 12:05 01/29/25 11:31 01/29/25 12:37 01/29/25 08:33
I&O
01/28/25 01/29/25 01/30/25
06:59 06:59 06:59
Intake Total 1939 1390 / 1390
Balance 1939 1390 / 1390
--- NOTE | 2025-01-29 13:07 | W.DS.TRANS ---
Addendum entered and electronically signed by Lio Reza MD 01/29/25 15:28:
Dictation- [id number]
Original Note:
DC Summary - [employer]
-
Discharge Instructions:
Sleep Apnea Risk Low
Discharge Diagnosis/Procedures COPD exacerbation
Pneumonia
Cognitive Impairment
Paroxysmal atrial fibrillation
Essential hypertension
Hyperlipidemia
Chronic ambulate dysfunction
Depression/insomnia
Diet As tolerated
Activity As tolerated
Driving Restrictions No driving
Other Services Hospice
Instructions:
Stand-Alone Forms:
Changes to Home Medications: Yes
Discharge Medications:
DC Medications w/original date entered in [employer]
albuterol sulfate 90 mcg/actuation aerosol inhaler 1 inh inhalation R Q4HPRN PRN sob #8.5 grams 01/29/25
apixaban 5 mg tablet (Eliquis) 5 mg PO BID Blood clot prevention/tx #60 tabs 01/29/25
azelastine 137 mcg (0.1 %) nasal spray 1 spray intranasal DAILY Congestion #30 mL 01/29/25
bisacodyl 10 mg rectal suppository (Dulcolax (bisacodyl)) 10 mg [place] DAILYPRN PRN IF NO BM AFTR MOM #30 ea 01/29/25
carboxymethylcellulose 0.5 %-glycerin 0.9 % eye drops (Refresh Optive) 1 drp BOTH EYES BID Eye Condition #15 mL 01/29/25
cefuroxime axetil 500 mg tablet 500 mg PO BID Infection #4 tabs 01/29/25
cholecalciferol (vitamin D3) 50 mcg (2,000 unit) capsule (Vitamin D3) 50 mcg PO DAILY Supplement #30 caps 01/29/25
diltiazem HCl 180 mg capsule,extended release 24 hr 180 mg PO QPM Blood pressure #30 caps 01/29/25
ipratropium 0.5 mg-albuterol 3 mg (2.5 mg base)/3 mL nebulization soln 3 ml inhalation R TID Lung/Breathing Issues #90 mL 01/29/25
lisinopril 5 mg tablet 5 mg PO DAILY Blood pressure #30 tabs 01/29/25
methylprednisolone 4 mg tablets in a dose pack (Medrol (Niranjan)) See Rx Instructions PO .COMPLEX copd #21 ea 01/29/25
metronidazole 500 mg tablet 500 mg PO BID Infection #4 tabs 01/29/25
mirtazapine 15 mg tablet 15 mg PO HS Sleep #30 tabs 01/29/25
sodium phosphates 19 gram-7 gram/118 mL enema (Fleet Enema) 118 ml [place] DAILYPRN PRN IF NO BM AFTR DULCOLAX #133 mL 01/29/25
umeclidinium 62.5 mcg-vilanterol 25 mcg/actuation powdr for inhalation (Anoro Ellipta) 1 inh inhalation R DAILY Lung/Breathing Issues #60 ea 01/29/25
vitamins A,C,S-nfpj-zfarrt 2,148 mcg-113 mg-45 mg-17.4 mg tablet (PreserVision AREDS) 2 tab PO DAILY Supplement #60 tabs 01/29/25
Home Medication Changes
new
Steroids
Antibiotics
Pending Results: No
[2025-01-29 15:55] VITALS: BP 130/57
== END 2025-01-29 16:55 | DRG 190 ==
LOC: 4 EAST ACU 13:47
PROVIDERS: Clinical Nurse Specialist Family Health; Physician Assistant; ADMITTING PHYSICIAN Internal Medicine; ATTENDING PHYSICIAN Hospitalist; CONSULT PHYSICIAN Internal Medicine; EMERGENCY PHYSICIAN Emergency Medicine; FAMILY PHYSICIAN Family Medicine
DX: J44.1 Chronic obstructive pulmonary disease with (acute) exacerbation (principal); J18.9 Pneumonia, unspecified organism; J96.21 Acute and chronic respiratory failure with hypoxia; L03.115 Cellulitis of right lower limb; J44.0 Chronic obstructive pulmonary disease with (acute) lower respiratory infection; I48.0 Paroxysmal atrial fibrillation; I10 Essential (primary) hypertension; R26.2 Difficulty in walking, not elsewhere classified; F32.A Depression, unspecified; R41.89 Other symptoms and signs involving cognitive functions and awareness; E78.00 Pure hypercholesterolemia, unspecified; Z66 Do not resuscitate; Z99.81 Dependence on supplemental oxygen
CPT/HCPCS: 71045; 80053; 82805; 83880; 84145; 84484; 85025; 87070; 87502; 87811; 93005; 93971; 94640; 96374; 97162; 97167; 99285